=== PATIENT | male | born 1980 | race Caucasian/White ===

== ENCOUNTER 2019-07-09 21:49 | Emergency (ER) | payer MEDICARE, MEDICAID, SELFPAY ==
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
[2019-07-09 21:56] VITALS: BP 116/84; PULSE 93; RESP 20; TEMP 36.4; O2SAT 94
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
[2019-07-09 23:01] LABS: Basophils Absolute Auto 0.1 K/mm3 (0.0-0.1); Basophils Percent Auto 0.6 % (0.2-1.2); Eosinophils Absolute Auto 0.1 K/mm3 (0-0.3); Eosinophils Percent Auto 0.7 % (0-4.4); Hematocrit 48.5 % (42.0-52.0); Hemoglobin 16.1 g/dL (14.0-18.0); Immature Granulocyte Absolute 0.04 K/mm3 (0.00-0.031); Immature Granulocyte Percent A 0.4 % (0-0.5); Lymphocytes Absolute Auto 2.72 K/mm3 (0.9-3.2); Lymphocytes Percent Auto 25.8 % (18.3-44.2); Mean Corpuscular HGB Conc 33.2 g/dl (32-36); Mean Corpuscular Hemoglobin 31.4 pg (26-34); Mean Corpuscular Volume 94.7 fl (80-100); Mean Platelet Volume 10.1 fl (7.4-10.4); Monocytes Absolute Auto 0.6 K/mm3 (0.1-0.6); Monocytes Percent Auto 5.3 % (2.6-8.5); Neutrophils Absolute Auto 7.1 K/mm3 (1.3-6.7); Neutrophils Percent Auto 67.2 % (45.5-73.1); Platelet Count Result 294 k/mm3 (150-375); Red Blood Count 5.12 M/mm3 (4.6-6.20); Red Cell Distribution Width 14.4 % (11.5-14.5); White Blood Count 10.6 K/mm3 (4.5-10.0)
[2019-07-09 23:12] LABS: Blood Urea Nitrogen 9 mg/dL (9-20); Calcium 9.8 mg/dL (8.4-10.2); Carbon Dioxide 18 mmol/L (22-30); Chloride 110 mmol/L (98-107); Estimated CRCL calculation 124 ml/min; Estimated Glomerular Filt Rate > 60; Ethanol 187 mg/dL (<10); Glucose 87 mg/dL (75-110); Potassium 4.2 mmol/L (3.4-5.0); Sodium 147 mmol/L (137-145)
[2019-07-09] MEDS: levETIRAcetam 500 MG TABLET 1000 MG PO (23:32)
[2019-07-09] MEDS: TETANUS,DIPHTHERIA,AC PERTUSSIS ADULT 0.5 ML (ADACEL) IM (23:33)
--- NOTE | 2019-07-09 23:36 | PC.NURSE ---
SPOKE WITH PATIENT REGARDING A PLACE FOR HIM TO STAY TONIGHT IN THE EVENT HE IS DISCHARGED. DR. LOERA REQUESTING THIS DUE TO PATIENTS SAFETY AT HOME. I SPOKE WITH THE PT WITH JOSE FARAH. THE PATIENT STATES HE DOES NOT HAVE A FRIEND OR FAMILY MEMBER HE CAN STAY WITH. HE IS REQUESTING TO CALL HIS MOTHER.
--- NOTE | 2019-07-09 23:46 | PC.NURSE ---
PT UP TO THE PHONE WITH ASSISTANCE.
[2019-07-10 00:01] VITALS: BP 119/65; PULSE 96; RESP 18; O2SAT 100
--- NOTE | 2019-07-10 01:20 | PC.NURSE ---
PT GAVE VERBAL PERMISSION FOR THIS RN TO CALL HIS MOTHER FOR A RIDE. I CALLED AND SPOKE WITH LEAH, PT MOTHER, SHE WILL PICK THE PATIENT UP.
[2019-07-10 01:55] VITALS: BP 135/67; PULSE 85; RESP 14; TEMP 36.4; O2SAT 96
== END 2019-07-10 01:57 | disposition home or self-care (01) ==
PROVIDERS: Emergency Provider Emergency Medicine
DX: S50.811A Abrasion of right forearm, initial encounter (principal); F10.129 Alcohol abuse with intoxication, unspecified; Y90.6 Blood alcohol level of 120-199 mg/100 ml; Z87.820 Personal history of traumatic brain injury; Y04.2XXA Assault by strike against or bumped into by another person, initial encounter; Z23 Encounter for immunization
CPT/HCPCS: 36415; 70450; 71046; 80048; 80307; 85025; 90471; 90715; 99284; A9270

== ENCOUNTER 2020-03-13 13:30 | Outpatient (RCR) | payer MEDICARE, MEDICAID, SELFPAY ==
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
--- NOTE | 2020-01-15 16:09 | PCPTNOTE ---
Patient did not show up for scheduled appointment this date.
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
--- NOTE | 2020-02-29 14:33 | PCPTNOTE ---
Patient called & cancelled scheduled appointment this date due to not being able to make his appointment.
--- NOTE | 2020-02-29 14:54 | PCPTNOTE ---
Called pt and left message reminding him of his Mar 04 appt.
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
--- NOTE | 2020-04-03 08:30 | PCPTNOTE ---
Admitting Provider: Attending Provider: PHYSICIAN NOT ON STAFF Patient:Barrera Ely Date of :1980 Discharge Note Patient has not returned for any further treatments since his last re-assessment on 03/13/2020, therefore he will be discharged at this time. Patient?s initial visit was on 01/11/2020 12:30 and he had a total of 14 visits. The goals have been met at this time. Thank you for referring this patient to [facility]. Please review, sign, date and return this discharge summary RAUL. I have been updated about the patient's current status and I agree with discharge from the above service at this time. Referring Physician Date
== END 2020-04-03 10:34 | disposition home or self-care (01) ==
LOC: ANHPT 13:30
DX: M54.9 Dorsalgia, unspecified (principal)
CPT/HCPCS: 97110; 97116; 97140; 97163; 97530

== ENCOUNTER 2020-08-24 04:29 | Inpatient (IN) | payer MEDICARE, MEDICAID, SELFPAY ==
[2020-08-24] VITALS (27 sets, daily range): BP systolic 81–171; BP diastolic 47–151; PULSE 38–110; RESP 12–24; TEMP 35.9–36.3; O2SAT 95–100; BMI 24.6
--- NOTE | ~2020-08-24 | CT_ITS ---
EXAMINATION: CT brain wo [facility] EXAM DATE: 08/24/2020 13:36 INDICATION: Confusion, history traumatic brain injury. TECHNIQUE: Spiral CT of the head was performed without contrast. Axial, coronal and sagittal images were reviewed. The dose-length product (DLP) for this examination was 605.33 mGy-cm. The exposure w as tailored according to patient size, and iterative reconstruction (ASIR) was used as additional dos e reduction technique. Comparison is made to prior examination from 07/09/2019. FINDINGS: Large left-sided craniotomy defect. Underlying regions of left hemispheric encephalomalacia again noted. There is no acute intraparenchymal hemorrhage. No evidence of intraparenchymal brain m ass lesion. No evidence of acute infarction. There is no mass effect or midline shift. No hydroceph alus. There is some ex vacuo dilation of the left lateral ventricle. There are no extra-axial collect ions. There are no acute calvarial fractures. The orbits are unremarkable. Soft tissue is unremarka ble. The visualized sinuses and mastoid air cells are well aerated. IMPRESSION: 1. No acute intracranial findings. 2. Left craniotomy, underlying regions of encephalomalacia. Reviewed, dictated and finalized at location A.
--- NOTE | ~2020-08-24 | XR_ITS ---
EXAMINATION: XR chest 1V EXAM DATE: 08/24/2020 13:41 INDICATION: Altered mental status. Confusion. TECHNIQUE: Portable AP frontal chest x-ray was obtained. Comparison is made to prior examination from 07/09/2019. FINDINGS: The lungs are clear. There are no pleural effusions. Cardiac silhouette is prominent but magnified on this AP technique. There is no pneumothorax suspected. Old right-sided rib fractures. IMPRESSION: No acute cardiopulmonary findings. Reviewed, dictated and finalized at location A.
[2020-08-24] MEDS: LORazepam INJ (*CRX) 2 MG/ML VIAL IM ×2 (04:37→05:17)
[2020-08-24] MEDS: OLANZapine 10 MG INJ VIAL (04:44)
--- NOTE | 2020-08-24 04:46 | ECG_ITS ---
Measurements Intervals [place] Rate: 74 P: 82 CA: 142 QRS: 79 QRSD: 98 T: 93 QT: 414 QTc: 461 Interpretive Statements SINUS RHYTHM WITH SINUS ARRHYTHMIA ST ELEVATION IN ANTEROLATERAL LEADS- PROBABLY EARLY REPOLARIZATION BASELINE ARTIFACT- I, II, AVR, AVL, AVF BORDERLINE ECG Electronically Signed On 08-24-2020 7:55:46 CDT by Jesus Nagy D.O.
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
[2020-08-24 07:14] LABS: Basophils Percent Auto 0.5 % (0.2-1.2); Eosinophils Absolute Auto 0.1 K/mm3 (0-0.3); Eosinophils Percent Auto 0.8 % (0-4.4); Hematocrit 41.4 % (42.0-52.0); Immature Granulocyte Absolute 0.02 K/mm3 (0.00-0.031); Immature Granulocyte Percent A 0.2 % (0-0.5); Lymphocytes Absolute Auto 2.52 K/mm3 (0.9-3.2); Lymphocytes Percent Auto 30.2 % (18.3-44.2); Mean Corpuscular HGB Conc 33.8 g/dl (32-36); Mean Corpuscular Volume 94.5 fl (80-100); Mean Platelet Volume 10.9 fl (7.4-10.4); Monocytes Absolute Auto 0.5 K/mm3 (0.1-0.6); Monocytes Percent Auto 6.1 % (2.6-8.5); Neutrophils Absolute Auto 5.2 K/mm3 (1.3-6.7); Neutrophils Percent Auto 62.2 % (45.5-73.1); Platelet Count Result 216 k/mm3 (150-375); Red Blood Count 4.38 M/mm3 (4.6-6.20); Red Cell Distribution Width 13.2 % (11.5-14.5); White Blood Count 8.4 K/mm3 (4.5-10.0)
[2020-08-24 07:18] LABS: Add Urine Microscopic? YES; Appearance Urine Clear (Clear); Bilirubin Urine Negative (Negative); Blood Urine Negative (Negative); Color Urine Yellow (Yellow); Glucose Urine UA Negative (Negative); Ketones Urine Trace mg/dL (Negative); Leukocyte Esterase Ur Negative LEU/UL (Negative); Nitrate Urine Negative (Negative); Protein Urine 1+ mg/dL (Negative); RBC Urine 0-2 /hpf (0-2); Specific Grav Ur 1.017 (1.001-1.035); Urobilinogen Urine Negative mg/dL (<2.0); WBC Urine 0-3 /hpf
[2020-08-24 07:25] LABS: INR 0.9; Prothrombin Time 13.2 Seconds (11.1-14.7)
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
[2020-08-24 07:29] LABS: Alanine Aminotransferase 17 U/L (4-50); Albumin Level 4.9 g/dL (3.5-5.1); Alkaline Phosphatase 49 U/L (38-126); Anion Gap 9 mmol/L (8-16); Aspartate Amino Transferase 25 U/L (17-59); Bilirubin,Total 0.4 mg/dL (0.2-1.3); Blood Urea Nitrogen 10 mg/dL (9-20); Calcium 9.2 mg/dL (8.4-10.2); Carbon Dioxide 25 mmol/L (22-30); Chloride 112 mmol/L (98-107); Estimated CRCL calculation 139 ml/min; Estimated Glomerular Filt Rate > 60; Ethanol < 10 mg/dL (<10); Glucose 97 mg/dL (75-110); Lactic Acid Reflex 2.6 mmol/L (0.7-2.1); Potassium 4.2 mmol/L (3.4-5.0); Sodium 146 mmol/L (137-145)
[2020-08-24 07:31] LABS: Creatine Kinase 203 U/L (55-170)
[2020-08-24 07:32] LABS: Amphetamine Screen Urine Negative (Negative); Barbiturate Screen Urine Negative (Negative); Benzodiazepines Screen Urine Negative (Negative); Cannabinoid Screen Urine Positive (Negative); Cocaine Screen Urine Negative (Negative); Magnesium 2.2 mg/dL (1.6-2.3); Methadone Screen Urine Negative (Negative); Opiate Screen Urine Negative (Negative); Phencyclidine Screen Urine Negative (Negative)
[2020-08-24 07:36] LABS: Partial Thromboplastin Time 23.9 SECONDS (22.3-36.8)
--- NOTE | 2020-08-24 08:22 | PC.NURSE ---
Restraint check done, Mother in room requesting warm blankets for patient. X-ray attempting to do chest x-ray, patient refusing chest x-ray, cursing at staff and mother.
[2020-08-24 08:24] LABS: Valproic Acid 41.1 ug/mL (50-120)
[2020-08-24] MEDS: levETIRAcetam 1000MG/NACL100ML 1,000 MG/100 ML BAG 400 MG IVPB ×2 (09:34→20:00)
--- NOTE | 2020-08-24 09:37 | PC.NURSE ---
Patient allowed this nurse to start IV, Sharyn RN to assist. Patient remains AOX2, mother at bedside, Carrie started. Per Dr Faith, we need to get patient to CT scan, patient refusing at this time. Mother attempting to talk to patient into getting scanned. Mother okay'd patient being given medications for outbursts.
[2020-08-24] MEDS: PHENobarbitaL sodium (*CRX) 130 MG/ML VIAL 260 MG IV PUSH (10:06)
[2020-08-24 10:07] LABS: Reflex Lactic Acid Yes or No Add Lactic
[2020-08-24] MEDS: SODIUM CHLORIDE 0.9% IV 50 ML 999 ML (10:07)
[2020-08-24 10:53] LABS: Lactic Acid 2.2 mmol/L (0.7-2.1)
[2020-08-24] MEDS: LACTATED RINGERS 1,000 ML 999 ML IV CONT (10:58)
[2020-08-24] MEDS: HALOPERIDOL LACTATE 5 MG/ML VIAL 10 MG IV PUSH (11:28)
--- NOTE | 2020-08-24 11:28 | PC.NURSE ---
Patient AOx1 at this time. Haldol given. Mother at bedside. Patient asking for pain medication for his back. MD notified.
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
[2020-08-24] MEDS: dexmedeTOMIDine 400 MCG/100 ML 400 MCG/100 ML BAG IV CONT (12:56)
--- NOTE | 2020-08-24 13:57 | WPDCNINT ---
Assessment and Plan Assessment and plan (1) Delirium due to general medical condition: Code(s): F05 - Delirium due to known physiological condition Status: Acute Assessment and Plan: It appears to be multifactorial without a single etiology to explain. 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 Patient has a baseline behavior of being aggressive, hallucinations, impulsive decreased cognition and memory. Above that patient smokes marijuana cigarettes and also takes alcohol regularly. Patient is also on multiple psychotropic drugs. ER physician suspected patient was in alcohol withdrawal although it seems less likely. UDS was positive for cannabinoids alcohol level was negative. Patient also received several sedative and anti psychotic medications in the ER. Patient may have had a seizure from alcohol intake and may have been postictal He is afebrile and his white cell count is normal. UA and chest x-ray is negative. Lactic acid very mildly elevated could be secondary to seizures and dehydration EKG showed normal sinus rhythm and normal QTC Patient is not on any SSRI On my request ED physician checked with [facility] where patient has psychiatry and neurological care but they do not have any bed available at this time Will admit the patient to ICU Continue restraints as needed for patients and staff safety Continue Precedex infusion Seizure precautions Continue Keppra and Depakote. His valproic acid level was low when checked in the ER Ativan p.r.n. IV fluids Thiamine and folic acid Will resume buspirone and mirtazapine once patient is able to take p.o. I had extensive discussion with patient's mother and explained her the complicated nature of patient's condition. I also explained to her that we will try to transfer him to [facility] once the bed is available for continue to care and as we do not have Psychiatrist and [facility] (2) Seizures: Code(s): R56.9 - Unspecified convulsions Status: Acute (3) TBI (traumatic brain injury): Code(s): S06.9X9A - Unspecified intracranial injury with loss of consciousness of unspecified duration, initial encounter Status: Acute (4) Alcohol withdrawal: Code(s): F10.239 - Alcohol dependence with withdrawal, unspecified Status: Acute (5) Drug abuse: Code(s): F19.10 - Other psychoactive substance abuse, uncomplicated Status: Acute (6) Encephalopathy: Code(s): G93.40 - Encephalopathy, unspecified Status: Acute (7) Neuropathy: Code(s): G62.9 - Polyneuropathy, unspecified Status: Acute Assessment and Plan: Hold Neurontin at this time as patient will be NPO Total Critical Care Time - 60 minutes Due to a high probability of clinically significant, life threatening deterioration, the patient required my highest level of preparedness to intervene emergently and I personally spent this critical care time directly and personally managing the patient. This critical care time included obtaining a history; examining the patient; pulse oximetry; ordering and review of studies; arranging urgent treatment with development of a management plan; evaluation of patient's response to treatment; frequent reassessment; and discussions with other providers. It was exclusive of separately billable procedures and treating other patients and teaching time. Please see Assessment and Plan section and the rest of the note for further information on patient assessment and treatment Delivery Associate Consult Note Consult date: 08/24/20 Time Seen: 13:00 HPI: Barrera Ely is a 39 year old male who was brought by EMS to hospital ER with chief complaint of agitation confusion. Patient is unable to provide any meaningful history and history was obtained from ER physician's sign-out, records ob
[2020-08-24] MEDS: SODIUM CHLORIDE 0.9% IV 1,000 ML 999 ML IV CONT (14:14)
--- NOTE | 2020-08-24 14:22 | PC.NURSE ---
MD aware of patients current vital signs. NS running wide open at this time. Patient sleeping.
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
--- NOTE | 2020-08-24 15:25 | ADMGEN ---
This patient, Barrera Ely, was admitted to Intensive Care Unit-3. Patient/family oriented to hospital policies and general routines including ID bracelet, bed and alarms, visiting hours, pain management, procedures, bathroom and other care routines, personal items, smoking policy, room service/diet, and visiting hours. Information on how to activate the Rapid Response Team has been discussed. Patient/Family are encouraged to report perceived risks to care and to ask questions if they do not understand what they are told or what they should do.
[2020-08-24] MEDS: ENOXAPARIN 40 MG/0.4 ML SYRINGE SUB-Q (15:31)
[2020-08-24] MEDS: LACTATED RINGERS 1,000 ML 125 ML IV CONT (16:28)
[2020-08-24] MEDS: LORazepam INJ (*CRX) 2 MG/ML VIAL IV PUSH ×4 (16:29→19:53)
[2020-08-24] MEDS: NICOTINE (*PBKC) 14 MG PATCH 1 PATCH TRANSDERM (16:29)
[2020-08-24] MEDS: THIAMINE HCL 200 MG/2 ML VIAL 100 MG IV PUSH (16:29)
[2020-08-24 16:36] LABS: Ammonia 22 umol/L (9-30)
[2020-08-24] MEDS: VALPROIC ACID INJ 500 MG in DEXTROSE 5% 100 ML 100 MG IVPB (17:29)
[2020-08-24] MEDS: dexmedeTOMIDine 400 MCG/100 ML 400 MCG/100 ML BAG 11.75 MCG IV CONT (22:28)
[2020-08-25] VITALS (17 sets, daily range): BP systolic 97–135; BP diastolic 47–93; PULSE 37–71; RESP 14–24; TEMP 35.9–36.6; O2SAT 90–99
[2020-08-25] MEDS: VALPROIC ACID INJ 500 MG in DEXTROSE 5% 100 ML 100 MG IVPB ×5 (00:05→23:46)
[2020-08-25] MEDS: LACTATED RINGERS 1,000 ML 125 ML IV CONT (02:19)
[2020-08-25 05:04] LABS: Basophils Absolute Auto 0.1 K/mm3 (0.0-0.1); Basophils Percent Auto 0.5 % (0.2-1.2); Eosinophils Absolute Auto 0.2 K/mm3 (0-0.3); Eosinophils Percent Auto 1.9 % (0-4.4); Hematocrit 39.1 % (42.0-52.0); Hemoglobin 13.1 g/dL (14.0-18.0); Immature Granulocyte Absolute 0.05 K/mm3 (0.00-0.031); Immature Granulocyte Percent A 0.5 % (0-0.5); Lymphocytes Percent Auto 32.3 % (18.3-44.2); Mean Corpuscular HGB Conc 33.5 g/dl (32-36); Mean Corpuscular Hemoglobin 31.9 pg (26-34); Mean Corpuscular Volume 95.1 fl (80-100); Mean Platelet Volume 10.8 fl (7.4-10.4); Monocytes Absolute Auto 0.7 K/mm3 (0.1-0.6); Monocytes Percent Auto 6.4 % (2.6-8.5); Neutrophils Absolute Auto 6.4 K/mm3 (1.3-6.7); Neutrophils Percent Auto 58.4 % (45.5-73.1); Platelet Count Result 190 k/mm3 (150-375); Red Blood Count 4.11 M/mm3 (4.6-6.20); Red Cell Distribution Width 12.8 % (11.5-14.5); White Blood Count 10.9 K/mm3 (4.5-10.0)
[2020-08-25 05:23] LABS: Alanine Aminotransferase 14 U/L (4-50); Alkaline Phosphatase 48 U/L (38-126); Anion Gap 6 mmol/L (8-16); Aspartate Amino Transferase 27 U/L (17-59); Bilirubin,Total 1.1 mg/dL (0.2-1.3); Blood Urea Nitrogen 8 mg/dL (9-20); Carbon Dioxide 23 mmol/L (22-30); Chloride 116 mmol/L (98-107); Estimated CRCL calculation 165 ml/min; Estimated Glomerular Filt Rate > 60; Glucose 100 mg/dL (75-110); Potassium 3.7 mmol/L (3.4-5.0); Sodium 145 mmol/L (137-145)
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
[2020-08-25] MEDS: levETIRAcetam 1000MG/NACL100ML 1,000 MG/100 ML BAG 200 MG IVPB ×2 (09:11→20:33)
[2020-08-25] MEDS: ENOXAPARIN 40 MG/0.4 ML SYRINGE SUB-Q (09:11)
[2020-08-25] MEDS: KCL 20 MEQ/0.45% NS 1,000 ML 75 ML IV CONT (09:16)
[2020-08-25] MEDS: dexmedeTOMIDine 400 MCG/100 ML 400 MCG/100 ML BAG 7.05 MCG IV CONT (09:36)
[2020-08-25] MEDS: NICOTINE (*PBKC) 14 MG PATCH 1 PATCH TRANSDERM (11:31)
[2020-08-25] MEDS: THIAMINE HCL 200 MG/2 ML VIAL 100 MG IV PUSH (11:32)
[2020-08-25] MEDS: LORazepam INJ (*CRX) 2 MG/ML VIAL IV PUSH ×3 (13:46→19:33)
[2020-08-25] MEDS: FOLIC ACID 1 MG/0.2 ML INJ IV PUSH (13:47)
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
[2020-08-25] MEDS: dexmedeTOMIDine 400 MCG/100 ML 400 MCG/100 ML BAG 14.1 MCG IV CONT (19:45)
[2020-08-26] VITALS (23 sets, daily range): BP systolic 117–138; BP diastolic 71–99; PULSE 38–102; RESP 16–31; TEMP 36.1–36.7; O2SAT 96–100
[2020-08-26] MEDS: KCL 20 MEQ/0.45% NS 1,000 ML 75 ML IV CONT ×2 (03:00→17:14)
[2020-08-26 05:02] LABS: Hemoglobin 13.1 g/dL (14.0-18.0); Mean Corpuscular HGB Conc 34.5 g/dl (32-36); Mean Corpuscular Volume 92.9 fl (80-100); Mean Platelet Volume 11.1 fl (7.4-10.4); Platelet Count Result 175 k/mm3 (150-375); Red Blood Count 4.09 M/mm3 (4.6-6.20); Red Cell Distribution Width 12.4 % (11.5-14.5); White Blood Count 9.7 K/mm3 (4.5-10.0)
[2020-08-26] MEDS: VALPROIC ACID INJ 500 MG in DEXTROSE 5% 100 ML 100 MG IVPB ×4 (05:04→23:03)
[2020-08-26 05:18] LABS: Alanine Aminotransferase 12 U/L (4-50); Albumin Level 3.9 g/dL (3.5-5.1); Alkaline Phosphatase 48 U/L (38-126); Anion Gap 5 mmol/L (8-16); Aspartate Amino Transferase 24 U/L (17-59); Blood Urea Nitrogen 6 mg/dL (9-20); Calcium 8.7 mg/dL (8.4-10.2); Carbon Dioxide 27 mmol/L (22-30); Chloride 112 mmol/L (98-107); Estimated CRCL calculation 121 ml/min; Estimated Glomerular Filt Rate > 60; Glucose 101 mg/dL (75-110); Potassium 3.6 mmol/L (3.4-5.0); Sodium 144 mmol/L (137-145)
[2020-08-26] MEDS: dexmedeTOMIDine 400 MCG/100 ML 400 MCG/100 ML BAG IV CONT (07:30)
--- NOTE | 2020-08-26 07:36 | WPDINTPN ---
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 Patient has a baseline behavior of being aggressive, hallucinations, impulsive decreased cognition and memory. Above that patient smokes marijuana cigarettes and also takes alcohol regularly. Patient is also on multiple psychotropic drugs. Alcohol withdrawal is also a possibility. UDS was positive for cannabinoids, alcohol level was negative. Patient also received several sedative and anti psychotic medications in the ER. Patient may have had a seizure from alcohol intake and may have been postictal He is afebrile and his white cell count is normal. UA and chest x-ray is negative. Lactic acid very mildly elevated could be secondary to seizures and dehydration EKG showed normal sinus rhythm and normal QTC Patient is not on any SSRI Patient is not requiring physical restraints at this time which is a good sign Continue to wean down Precedex infusion today Will continue to try to minimize Ativan use Seizure precautions Continue Keppra and Depakote. IV fluids Thiamine and folic acid Will resume buspirone, gabapentin and mirtazapine once patient is able to take p.o. Sitter at bedside (2) Seizures: Code(s): R56.9 - Unspecified convulsions Status: Acute Assessment and Plan: Continue Keppra and Depakote, seizure precautions (3) TBI (traumatic brain injury): Code(s): S06.9X9A - Unspecified intracranial injury with loss of consciousness of unspecified duration, initial encounter Status: Acute Assessment and Plan: History of traumatic brain injury leading to chronic brain damage and encephalomalacia with cognitive behavior issues (4) Alcohol withdrawal: Qualifiers: Complication of substance-induced condition: with delirium Qualified Code(s): F10.231 - Alcohol dependence with withdrawal delirium Code(s): F10.239 - Alcohol dependence with withdrawal, unspecified Status: Acute Assessment and Plan: Continue thiamine and folic acid -currently on Precedex infusion which is being weaned (5) Drug abuse: Code(s): F19.10 - Other psychoactive substance abuse, uncomplicated Status: Acute Assessment and Plan: UDS positive for cannabinoids -will awake overnight counselor patient once more awake (6) Encephalopathy: Code(s): G93.40 - Encephalopathy, unspecified Status: Acute Assessment and Plan: Multifactorial as noted above (7) Neuropathy: Code(s): G62.9 - Polyneuropathy, unspecified Status: Acute Assessment and Plan: Will start gabapentin if he is able to take p.o. Additional Plan Discussed with mother and updated her with patient's condition and plan of care. I answered all questions Code status: Full code Critical care time spent: 33 minutes This dictation may have been done utilizing a voice recognition system. Attempts have been made to correct errors. However, there may be uncorrected grammatical, spelling, and recognition errors present. Due to a high probability of clinically significant, life threatening deterioration, the patient required my highest level of preparedness to intervene emergently and I personally spent this critical care time directly and personally managing the patient. This critical care time included obtaining a history; examining the patient; pulse oximetry; ordering and review of studies; arranging urgent treatment with development of a management plan; evaluation of patient's response to treatment; frequent reassessment; and discussions with other providers. It was exclusive of separately billable procedures and treating other
[2020-08-26] MEDS: levETIRAcetam 1000MG/NACL100ML 1,000 MG/100 ML BAG 200 MG IVPB ×2 (08:58→20:12)
[2020-08-26] MEDS: NICOTINE (*PBKC) 14 MG PATCH 1 PATCH TRANSDERM (09:02)
[2020-08-26] MEDS: ENOXAPARIN 40 MG/0.4 ML SYRINGE SUB-Q (09:02)
[2020-08-26] MEDS: THIAMINE HCL 200 MG/2 ML VIAL 100 MG IV PUSH (09:02)
[2020-08-26] MEDS: GABAPENTIN 300 MG CAPSULE 600 MG PO (09:18)
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
[2020-08-26] MEDS: busPIRone HCL 10 MG TABLET PO ×2 (10:51→16:30)
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
--- NOTE | 2020-08-26 10:55 | PC.NURSE ---
Mother to bedside with Dr. Jacob.
--- NOTE | 2020-08-26 11:00 | PC.NURSE ---
Dr. Zelaya at bedside.
[2020-08-26] MEDS: HYDROcodone/acetaminophen (*CRX) 5-325 MG TABLET 1 TAB PO ×3 (13:47→22:53)
[2020-08-26] MEDS: FOLIC ACID 1 MG/0.2 ML INJ IV PUSH (13:51)
[2020-08-26] MEDS: MIRTAZAPINE 15 MG TABLET 45 MG PO (20:12)
--- NOTE | 2020-08-26 20:30 | PC.NURSE ---
Patient denies pain, however states he takes more pain medication at home then what is being allowed here and that he will never come back here again.VS stable at 83HR, 20RR, 95%, 129/74. States he should be able to have more pain medication even tho patient denies pain. Continue to monitor at this time.
[2020-08-27] VITALS (7 sets, daily range): BP systolic 110–140; BP diastolic 79–89; PULSE 61–105; RESP 13–24; TEMP 36.6–36.8; O2SAT 96–98
[2020-08-27] MEDS: HYDROcodone/acetaminophen (*CRX) 5-325 MG TABLET 1 TAB PO ×2 (02:27→06:13)
[2020-08-27 04:54] LABS: Hematocrit 40.3 % (42.0-52.0); Hemoglobin 14.1 g/dL (14.0-18.0); Mean Corpuscular Hemoglobin 32.3 pg (26-34); Mean Corpuscular Volume 92.2 fl (80-100); Mean Platelet Volume 10.7 fl (7.4-10.4); Platelet Count Result 208 k/mm3 (150-375); Red Blood Count 4.37 M/mm3 (4.6-6.20); Red Cell Distribution Width 12.4 % (11.5-14.5); White Blood Count 9.8 K/mm3 (4.5-10.0)
[2020-08-27 05:11] LABS: Alanine Aminotransferase 14 U/L (4-50); Albumin Level 4.3 g/dL (3.5-5.1); Alkaline Phosphatase 58 U/L (38-126); Anion Gap 8 mmol/L (8-16); Aspartate Amino Transferase 27 U/L (17-59); Bilirubin,Total 0.8 mg/dL (0.2-1.3); Blood Urea Nitrogen 5 mg/dL (9-20); Calcium 8.7 mg/dL (8.4-10.2); Carbon Dioxide 24 mmol/L (22-30); Chloride 108 mmol/L (98-107); Estimated CRCL calculation 157 ml/min; Estimated Glomerular Filt Rate > 60; Glucose 88 mg/dL (75-110); Magnesium 1.8 mg/dL (1.6-2.3); Potassium 3.4 mmol/L (3.4-5.0); Sodium 140 mmol/L (137-145)
[2020-08-27] MEDS: VALPROIC ACID INJ 500 MG in DEXTROSE 5% 100 ML 100 MG IVPB (06:13)
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
[2020-08-27] MEDS: busPIRone HCL 10 MG TABLET PO (08:43)
[2020-08-27] MEDS: GABAPENTIN 300 MG CAPSULE 600 MG PO (08:44)
[2020-08-27] MEDS: ENOXAPARIN 40 MG/0.4 ML SYRINGE SUB-Q (08:44)
[2020-08-27] MEDS: MAGNESIUM SULF 2 GM/WATER 50ML 2 GM/50 ML BAG IVPB (08:44)
[2020-08-27] MEDS: POTASSIUM CHLORIDE 20 MEQ TABLET 40 MEQ PO (08:44)
[2020-08-27] MEDS: levETIRAcetam 1000MG/NACL100ML 1,000 MG/100 ML BAG 200 MG IVPB (08:45)
[2020-08-27] MEDS: NICOTINE (*PBKC) 14 MG PATCH 1 PATCH TRANSDERM (08:46)
[2020-08-27] MEDS: THIAMINE HCL 200 MG/2 ML VIAL 100 MG IV PUSH (08:46)
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
--- NOTE | 2020-08-27 11:31 | WPDNEUROPN ---
Progress Note: A&P Assessment and Plan (1) Seizures: Code(s): R56.9 - Unspecified convulsions Status: Acute Additional Plan improving mental status, treatment will be continued as such Review of Systems Review of Systems: All systems reviewed & are unremarkable except as noted in HPI and below Exam Const: General: cooperative, comfortable and no acute distress Nutritional Appearance: average body habitus Orientation/consciousness: oriented to person, oriented to place and oriented to time Limitations: no limitations HENMT: Head: normocephalic Ears: hearing grossly normal bilaterally General nose exam: Normal external nose present Face and sinus: normal facial exam Mouth: Yes Normal oral and palatal mucosa present Eyes: General: appearance normal, both eyes and all related structures Neck: Neck: full ROM Resp: Effort & Inspection: normal respiratory effort Auscultation: clear to auscultation bilaterally Cardio: Rate: regular rate Rhythm: regular rhythm Neuro: General: oriented to person and oriented to place Cranial nerves: Yes CN's II-XII intact bilaterally Cognition (Neuro): normal cognition Speech: normal speech Gait exam (Neuro): Wide-based gait present Sensory Exam: normal sensation Deep tendon reflexes (DTR's): Right triceps reflex intensity grade: 1+, Left triceps reflex intensity grade: 2+, Rt Biceps (C5, C6): 1+, Left biceps reflex intensity grade: 2+, Right brachioradialis reflex intensity grade: 1+, Left brachioradialis reflex intensity grade: 2+, Right patellar reflex intensity grade: 1+, Left patellar reflex intensity grade: 2+, Right ankle reflex intensity grade: 1+ and Left ankle reflex intensity grade: 2+ Plantar Reflex Responses: equivocal: bilateral Objective Data Vital Signs Vital Signs: Vital Signs - 24 hr 08/26/20 12:00 08/26/20 14:00 08/26/20 16:00 Temperature 36.3 C L 36.7 C Pulse Rate 67 72 86 Respiratory Rate 24 H 20 19 Blood Pressure 126/87 136/79 131/81 Pulse Oximetry 98 99 97 08/26/20 18:00 08/26/20 20:00 08/26/20 20:24 Temperature 36.2 C L Pulse Rate 102 H 78 81 Respiratory Rate 19 19 19 Blood Pressure 138/99 H 129/74 Pulse Oximetry 99 97 97 08/26/20 22:00 08/26/20 23:32 08/26/20 23:43 Temperature Pulse Rate 85 74 Respiratory Rate 23 H 21 H Blood Pressure 131/85 Pulse Oximetry 98 96 98 08/27/20 00:00 08/27/20 02:00 08/27/20 03:43 Temperature 36.6 C Pulse Rate 79 68 65 Respiratory Rate 21 H 23 H 20 Blood Pressure 140/89 140/89 Pulse Oximetry 98 98 96 08/27/20 04:00 08/27/20 06:00 08/27/20 08:00 Temperature 36.8 C 36.8 C Pulse Rate 65 61 63 Respiratory Rate 18 24 H 13 Blood Pressure 110/79 110/79 Pulse Oximetry 98 98 08/27/20 10:00 Temperature Pulse Rate 105 H Respiratory Rate Blood Pressure Pulse Oximetry Intake/Output Intake/Output: Intake & Output 08/24/20 08/25/20 08/26/20 08/27/20 23:59 23:59 23:59 23:59 Intake Total 1997.94 2755 2870 930 Output Total 2400 1225 2400 Balance 867 7654 -4139 Meds/Results Medications: Active Medications Generic Name Dose Route Start Last Admin Trade Name Freq PRN Reason Stop Dose Admin Hydrocodone Bitart/Acetaminophen 1 tab 08/26/20 18:09 08/27/20 06:13 Hydrocodone/Acetaminophen (*Crx) 5-325 Mg Tablet PO 1 tab Q4H PRN Administration Pain Rated 6 or Greater Buspirone HCl 10 mg 08/26/20 09:00 08/27/20 08:43 Buspirone Hcl 10 Mg Tablet PO 10 mg BID CLARA Administration Enoxaparin Sodium 40 mg 08/25/20 09:00 08/27/20 08:44 Enoxaparin 40 Mg/0.4 Ml Syringe SUB-Q 40 mg DAILY CLARA Administration Folic Acid 1 mg 08/25/20 14:00 08/26/20 13:51 Folic Acid 1 Mg/0.2 Ml Inj IV PUSH 1 mg Q24H CLARA Administration Gabapentin 600 mg 08/26/20 09:00 08/27/20 08:44 Gabapentin 300 Mg Capsule PO 600 mg DAILY CLARA Administration Levetiracetam 1,000 mg in 100 mls @ 400 mls/hr 08/24/20 21:00 08/27/20 09:15 Janet
--- NOTE | 2020-09-02 08:20 | PC.NURSE ---
Blood cx are negative. Dr. Nicole emerson.
--- NOTE | 2020-09-02 08:38 | PC.NURSE ---
Blod cx are negative. Dr. Nicole emerson.
== END 2020-08-27 12:28 | disposition home or self-care (01) | DRG 897 ==
LOC: ANHED 13:59 → ANHICU 17:13
PROVIDERS: Emergency Medicine; Internal Medicine; Admitting Provider Internal Medicine; Emergency Provider Emergency Medicine; PCP Internal Medicine; Visit Provider Internal Medicine
DX: F10.231 Alcohol dependence with withdrawal delirium (principal); F05 Delirium due to known physiological condition; G93.89 Other specified disorders of brain; G40.909 Epilepsy, unspecified, not intractable, without status epilepticus; F17.210 Nicotine dependence, cigarettes, uncomplicated; F19.10 Other psychoactive substance abuse, uncomplicated; G62.9 Polyneuropathy, unspecified; Z79.899 Other long term (current) drug therapy; Z87.820 Personal history of traumatic brain injury; Z91.14 Patient's other noncompliance with medication regimen
CPT/HCPCS: 36415; 70450; 71045; 80053; 80164; 80307; 81001; 82140; 82550; 83605; 83735; 85025; 85027; 85610; 85730; 87040; 87086; 93005; 96361; 96365; 96372; 96375; 99285; A9270; J1630; J1650; J1953; J2060; J2560; J3411; J3475; J7030; J7120

== ENCOUNTER 2020-08-28 13:36 | Outpatient (CLI) | payer MEDICARE, MEDICAID, SELFPAY | END 2020-08-28 13:37 | disposition home or self-care (01) | LOC: ANHCOVIDVC 13:36 | PROVIDERS: PCP Internal Medicine | DX: Z23 Encounter for immunization (principal) | CPT/HCPCS: 0001A; 91300 ==

== ENCOUNTER 2020-09-18 13:27 | Outpatient (CLI) | payer MEDICARE, MEDICAID, SELFPAY | END 2020-09-18 13:28 | disposition home or self-care (01) | LOC: ANHCOVIDVC 13:27 | PROVIDERS: PCP Internal Medicine | DX: Z23 Encounter for immunization (principal) | CPT/HCPCS: 0002A; 91300 ==

== ENCOUNTER 2021-01-29 13:06 | Outpatient (CLI) | payer MEDICARE, MEDICAID, SELFPAY ==
--- NOTE | ~2021-01-29 | XR_ITS ---
EXAMINATION: XR barium swallow modified DATE: 01/29/2021 13:55 INDICATION: Dysphagia TECHNIQUE: Modified barium esophagram was performed by myself to administered fluoroscopy, in conjun ction with speech pathologist who administered barium in varying consistencies as per speech patholog ist documentation. This was recorded on tape. A single fluoroscopic spot image was recorded. The DAP for this procedure was 1.243 Gycm2. Fluoroscopy exposure time was 1.9 minutes. FINDINGS: Oral stage: Adequate function. Pharyngeal phase: Adequate function. Laryngeal penetration: None. Aspiration: None. Laryngeal sensitivity: Present. IMPRESSION: Unremarkable modified barium swallow. Please refer to speech pathologist findings and spe [facility] feeding recommendations. Reviewed, dictated and finalized at location A. IMPRESSION: Unremarkable modified barium swallow. Please refer to speech pathol ogist findings and specific feeding recommendations.
--- NOTE | 2021-01-29 17:40 | STOPEVAL ---
MODIFIED BARIUM SWALLOW EVALUATION: Thank you for referring Barrera Ely to [facility].? Attending Provider: Deandre Melchor MD Outpatient Past Medical History Past Medical History Source of Past Medical History Recalled from Previous Visit, Confirmed with Patient/Family Neurological History Hx Epilepsy Yes Hx Other Neurological Disorders Yes: postconcussion syndrome, TBI Cardiovascular History Hx Cardiac Disorders No Significant History Respiratory History Hx Respiratory Disorders No Significant History Gastrointestinal History Hx Gastrointestinal Disorders No Significant History Genitourinary History Hx Genitourinary Disorders No Significant History Musculoskeletal History Hx Back Injury Yes Hx Back Pain Yes: DDD-lumbar, sacroiliitis Hx Fractures Yes: right scap fracture Hematological History Hx Hematological Disorders No Significant History Endocrine History Hx Endocrine Disorders No Significant History HEENT History Hx HEENT Disorders No Significant History Integumentary History Hx Skin Disorders No Significant History Reproductive History Hx Reproductive Disorders No Significant History Psychosocial History Hx Other Psychiatric Disorders Yes: alcohol abuse, Pain History Has Past Pain Affected Your Daily Life Yes History of Long-Term Prescription Pain Yes Medication Use (Opiates) Evaluation Information Problem Diagnosis dysphagia Onset last several months Subjective Information Pt and his mother provided Query Text:As Reported By Patient/ information; it is reported Family that pt has difficulty with pills as well as solid foods getting stuck Modified Barium Swallow Evaluation Recent Swallowing History Reports Dysphagia Yes History of Dysphagia No Other Related History TBI in 2017 Other Factors Impacting Dysphagia Neurological Impairment History of Pneumonia No Reported Difficult Consistencies Pills,Solids Intake Method Prior to Swallow Oral Evaluation Diet Prior to Swallow Evaluation Regular, Level 7 Liquid Consistency Prior to Swallow Thin (0) Evaluation Consistency Barium Pill Other Amount a half and a whole pill were tested; given with water Oral Preparatory Symptoms None Oral Phase Symptoms None Pharyngeal Phase Symptoms None Severity of Vallecular Residue None - 0% No Residue Severity of Pyriform Sinus Residue None - 0% No Residue 8 Point Laryngeal Penetration-Aspiration Material Does Not Enter Airway Scale Thin Uncontrolled 2 Method of Presentation Straw Oral Preparatory
== END 2021-01-29 13:07 | disposition home or self-care (01) ==
PROVIDERS: PCP Internal Medicine; Visit Provider Internal Medicine
DX: R13.10 Dysphagia, unspecified (principal); R09.89 Other specified symptoms and signs involving the circulatory and respiratory systems
CPT/HCPCS: 92611

== ENCOUNTER 2022-05-23 09:13 | Observation (INO) | payer MEDICARE, MEDICAID, SELFPAY ==
[2022-05-23] VITALS (7 sets, daily range): BP systolic 115–140; BP diastolic 70–94; PULSE 71–92; RESP 14–20; TEMP 36–36.6; O2SAT 95–99; BMI 30.9
--- NOTE | ~2022-05-23 | CT_ITS ---
EXAMINATION: CT cervical spine wo con DATE: 05/23/2022 10:45 INDICATION: Neck pain after fall TECHNIQUE: Computed tomography (CT) of the cervical spine was performed without intravenous contrast. The dose-length product was 482 mGy-cm. Automated exposure control and iterative reconstruction tech [employer] were employed. COMPARISON: CT dated 12/04/2018 FINDINGS: There is mild disc narrowing and endplate hypertrophy at C4-5 and C5-6. Odontoid process is normal. Craniovertebral junction is normal. No evidence for perched facet. Spinous processes are nor mal. Vertebral body heights are maintained. Odontoid process is normal. No significant paraspinal sof t tissue abnormality. There is mild emphysema in the lung apices. IMPRESSION: 1. No acute fracture. Reviewed, dictated and finalized at location A. ANIZED FIBER UNIT OPERATOR IMPRESSION: 1. No acute fracture.
--- NOTE | ~2022-05-23 | XR_ITS ---
EXAMINATION: XR chest 1V 05/23/2022 10:47 INDICATION: Altered mental status. PROCEDURE: AP portable chest COMPARISON: 08/24/2020 FINDINGS: The lungs are clear. The cardiomediastinal silhouette is within normal limits. There are no pleural effusions. There is no pneumothorax suspected. There are multiple healed right rib fract ures. There is a battery pack overlying the left mid thorax. IMPRESSION: 1: NO ACUTE CARDIOPULMONARY DISEASE. Reviewed, dictated and finalized at location A. RACTIVE MEDIA SPECIALIST
--- NOTE | ~2022-05-23 | CT_ITS ---
EXAMINATION: CT brain wo con DATE: 05/23/2022 10:45 INDICATION: Altered mental status. Seizures. TECHNIQUE: Computed tomography (CT) of the head was performed without intravenous contrast. The dose- length product was 681.00 mGy-cm. Automated exposure control and iterative reconstruction technique w ere employed. COMPARISON: 08/24/2020 FINDINGS: There is a left-sided craniotomy defect. There is encephalomalacia involving the left front al and parietal lobes, unchanged. No ventriculomegaly or midline shift. Basilar cisterns are patent. No acute infarction, hemorrhage, mass or mass effect. Paranasal sinuses and mastoids are pneumatized. No acute depressed skull fracture. IMPRESSION: 1. No acute intracranial abnormality. No significant interval change. Reviewed, dictated and finalized at location A. IALTY THERAPIST
--- NOTE | 2022-05-23 09:31 | ECG_ITS ---
Measurements Intervals [place] Rate: 78 P: 68 [place]: 154 QRS: 60 QRSD: 92 T: 66 QT: 376 QTc: 430 Interpretive Statements SINUS RHYTHM POSSIBLE LEFT ATRIAL ENLARGEMENT INCOMPLETE RIGHT BUNDLE BRANCH BLOCK BASELINE ARTIFACT- I, II, III, AVR, AVL, AVF BORDERLINE ECG NO PREVIOUS ECG AVAILABLE FOR COMPARISON Electronically Signed On 05-23-2022 15:02:06 CAN DRYER by Jesus Nagy D.O.
[2022-05-23 09:47] LABS: Glucose Point of Care 110 mg/dl (65-105)
[2022-05-23] MEDS: SODIUM CHLORIDE 0.9% IV 1,000 ML 999 ML IV CONT ×2 (09:51→11:25)
[2022-05-23 09:57] LABS: Add Urine Microscopic? YES; Appearance Urine Clear (Clear); Basophils Percent Auto 0.3 % (0.2-1.2); Bilirubin Urine Negative (Negative); Blood Urine Negative (Negative); Color Urine Yellow (Yellow); Eosinophils Percent Auto 0.1 % (0-4.4); Glucose Urine UA Negative (Negative); Hematocrit 44.3 % (42.0-52.0); Hemoglobin 14.9 g/dL (14.0-18.0); Immature Granulocyte Absolute 0.05 K/mm3 (0.00-0.031); Immature Granulocyte Percent A 0.5 % (0-0.5); Ketones Urine 1+ mg/dL (Negative); Leukocyte Esterase Ur Negative LEU/UL (Negative); Lymphocytes Absolute Auto 1.95 K/mm3 (0.9-3.2); Lymphocytes Percent Auto 17.7 % (18.3-44.2); Mean Corpuscular HGB Conc 33.6 g/dl (32-36); Mean Corpuscular Hemoglobin 32.3 pg (26-34); Mean Corpuscular Volume 96.1 fl (80-100); Mean Platelet Volume 10.3 fl (7.4-10.4); Monocytes Absolute Auto 0.7 K/mm3 (0.1-0.6); Monocytes Percent Auto 5.9 % (2.6-8.5); Neutrophils Absolute Auto 8.3 K/mm3 (1.3-6.7); Neutrophils Percent Auto 75.5 % (45.5-73.1); Nitrate Urine Negative (Negative); Platelet Count Result 279 k/mm3 (150-375); Protein Urine Negative (Negative); Red Blood Count 4.61 M/mm3 (4.6-6.20); Red Cell Distribution Width 13.3 % (11.5-14.5); Specific Grav Ur 1.015 (1.001-1.035); Urobilinogen Urine 0.2 mg/dL (<2.0)
[2022-05-23] MEDS: LORazepam INJ (*CRX) 2 MG/ML VIAL (09:58)
--- NOTE | 2022-05-23 09:59 | PC.NURSE ---
nathalia from dr marquez to give iv push ativan 2mg stat
[2022-05-23 10:07] LABS: INR 1.1
[2022-05-23 10:08] LABS: Partial Thromboplastin Time 28.9 SECONDS (22.3-36.8)
[2022-05-23 10:09] LABS: Ammonia 55 umol/L (9-30); Ethanol < 10 mg/dL (<10)
[2022-05-23 10:10] LABS: Alanine Aminotransferase 21 U/L (6-50); Albumin Level 5.5 g/dL (3.5-5.1); Alkaline Phosphatase 69 U/L (38-126); Anion Gap 13 mmol/L (8-16); Aspartate Amino Transferase 27 U/L (17-59); Bilirubin,Total 0.5 mg/dL (0.2-1.3); Blood Urea Nitrogen 9 mg/dL (9-20); Carbon Dioxide 22 mmol/L (22-30); Chloride 108 mmol/L (98-107); Creatine Kinase 207 U/L (55-170); Estimated CRCL calculation 125 ml/min; Estimated Glomerular Filt Rate > 60; Glucose 106 mg/dL (65-110); Potassium 4.4 mmol/L (3.4-5.0); Sodium 143 mmol/L (137-145)
[2022-05-23 10:13] LABS: Amphetamine Screen Urine Negative (Negative); Barbiturate Screen Urine Negative (Negative); Benzodiazepines Screen Urine Negative (Negative); Cannabinoid Screen Urine Positive (Negative); Cocaine Screen Urine Negative (Negative); Methadone Screen Urine Negative (Negative); Mucus Urine Rare /lpf; Opiate Screen Urine Negative (Negative); Phencyclidine Screen Urine Negative (Negative); RBC Urine 0-2 /hpf (0-2); WBC Urine 0-3 /hpf
[2022-05-23 10:21] LABS: Lactic Acid Reflex 4.1 mmol/L (0.7-2.0)
--- NOTE | 2022-05-23 10:28 | ED.GENADULT ---
HPI - General Adult General Chief complaint: Seizure Stated complaint: seizure Time Seen by Provider: 05/23/22 09:17 Source: EMS and RN notes reviewed Mode of arrival: EMS Limitations: altered mental status History of Present Illness HPI narrative: This is a 41 year old male with history of alcohol abuse, traumatic brain injury, seizures who presents from home for evaluation of altered mental status. EMS states patient was found on the floor by his parents this morning. He was confused and combative. It is presumed that patient was drinking last night and he had seizure today. Patient is unable to give any history at this time. I spoke with patient's mother over the phone. She states that patient is normally able to carry a conversation. He has history of sneaking alcohol into the house and he also sometimes does not take his medication. His mother states they found an empty bottle of alcohol in his room today. He may have drank last night when they left house last night. HE was also on their return home at 10 pm last night. This morning they heard a noise and they found patient on the floor next to his bed. She states he was trying to get up but he could not. She states he has similar episode in 2020 in which he had same presentation. She thinks he had seizure and that he is postictal. She also states they found some of patient's pills in his room so he may not be taking his medications. Related Data Home Medications Medication Instructions Recorded Confirmed buspirone 30 mg tablet 30 mg PO BID 05/23/22 05/23/22 divalproex 250 mg tablet,delayed 1,000 mg PO BID 05/23/22 05/23/22 release gabapentin 600 mg tablet 600 mg PO BID 05/23/22 05/23/22 levetiracetam 500 mg tablet 1,000 mg PO BID 05/23/22 05/23/22 mirtazapine 45 mg tablet 45 mg PO HS 05/23/22 05/23/22 oxycodone 10 mg tablet,crush 10 mg PO BID 05/23/22 05/23/22 resistant,extended release 12 hr (OxyContin) oxycodone-acetaminophen 10 mg-325 1 tablet PO QID PRN Pain 05/23/22 05/23/22 mg tablet risperidone 0.5 mg tablet 0.5 mg PO BID 05/23/22 05/23/22 sertraline 100 mg tablet 100 mg PO BID 05/23/22 05/23/22 trazodone 100 mg tablet 100 mg PO HS 05/23/22 05/23/22 Allergies Allergy/AdvReac Type Severity Reaction Status Date / Time No Known Allergies Allergy Verified 05/23/22 09:51 Review of Systems Review of Systems: ROS unobtainable: Yes unobtainable due to medical condition and unobtainable due to mental status PMFSH Past Medical History Medical History (Updated 05/23/22 @ 17:34 by Zenobia Aldana NP) Depression with anxiety Seizure disorder Traumatic brain injury Surgical History Surgical History (Updated 05/23/22 @ 17:34 by Zenobia Aldana NP) Surgical history unknown Family History Family History (Updated 05/23/22 @ 17:35 by Zenobia Aldana NP) Unknown Family history unknown Social History Social History (Updated 05/23/22 @ 17:40 by Zenobia Aldana NP) Social History: The patient reportedly lives with family members. The patient uses E cigarettes. There are no emergency contact numbers listed in his chart. Marijuana was positive on his drug tox screen Code status full code Smoking status: Current every day smoker Tobacco type: e-cigarettes/vaping Second hand tobacco smoke exposure: Yes Alcohol intake: unknown Substance use: current Substance use type: marijuana Lack of Transportation: No Lack of Food: Never True Current Housing: I Have Housing Concerned About Future Housing: No Difficulty Paying Gas/Electric Bills: No Difficulty Paying for Meds: No Currently Unemployed: No Education: High School Diploma/GED Difficulty w/ Childcare or Family Care: No Spiritual care concerns: No Exam Const: General: ill appearing Other: patient is agitate. He is mumbling and telling us to let go of him HENMT: Head: normal to inspection Mouth: Yes Normal oral and palatal mucosa present a
[2022-05-23 10:36] LABS: Valproic Acid 98.3 ug/mL (50-120)
[2022-05-23 10:37] LABS: Influenza A QL RT-PCR Negative (Negative); Influenza B QL RT-PCR Negative (Negative); SARS-CoV-2 RNA PCR Negative
[2022-05-23] MEDS: SODIUM CHLORIDE 0.9% IV 1,000 ML 125 ML IV CONT (12:52)
[2022-05-23] MEDS: levETIRAcetam 1000MG/NACL100ML 1,000 MG/100 ML BAG 400 MG IVPB ×2 (12:52→21:09)
[2022-05-23 12:53] LABS: Reflex Lactic Acid Yes or No Add Lactic
[2022-05-23 13:36] LABS: Lactic Acid 1.5 mmol/L (0.7-2.0)
--- NOTE | 2022-05-23 14:31 | PM.IMHP ---
H&P: HPI History of Present Illness Date/Time: 05/23/22 14:31 Chief Complaint: Seizure Narrative: This is a 41-year-old male patient who reportedly lives with his family. Is reported that the patient is noncompliant with his medication for seizures at times. Family members saw him at 10:00 a.m. last night he was resistant quietly in his room. This morning the family members heard a thud and walked into the patient's room and saw him on the floor. The patient was having some repetitive speech and some confusion. Is suspected that the patient had a seizure. His white count 11.0. Lactic acid is 4.1 and came down to 1.5 with fluid resuscitation. Total creatinine kinase is 207 ammonia level is 55. Cervical spine CT was read as no acute fracture. Chest x-ray was read as no acute cardiopulmonary disease. Head CT was read as no acute intracranial abnormality. No significant interval change. Neurology has been consulted. The patient was given IV fluids, Ativan, Zofran and Keppra IV. The patient is verbally unresponsive at this time. However the patient with her 81 medicated with Ativan. The patient is being admitted to observation status on the date of service 05/23/2022. Review of Systems Review of Systems: See HPI [facility] Past Medical History Medical History (Updated 05/23/22 @ 18:06 by Zenobia Aldana NP) Alcoholism Depression with anxiety Seizure disorder Traumatic brain injury Surgical History Surgical History (Updated 05/23/22 @ 17:34 by Zenobia Aldana NP) Surgical history unknown Family History Family History (Updated 05/23/22 @ 17:35 by Zenobia Aldana NP) Unknown Family history unknown Social History Social History (Updated 05/23/22 @ 17:40 by Zenobia Aldana NP) Social History: The patient reportedly lives with family members. The patient uses E cigarettes. There are no emergency contact numbers listed in his chart. Marijuana was positive on his drug tox screen Code status full code Smoking status: Current every day smoker Tobacco type: e-cigarettes/vaping Second hand tobacco smoke exposure: Yes Alcohol intake: unknown Substance use: current Substance use type: marijuana Lack of Transportation: No Lack of Food: Never True Current Housing: I Have Housing Concerned About Future Housing: No Difficulty Paying Gas/Electric Bills: No Difficulty Paying for Meds: No Currently Unemployed: No Education: High School Diploma/GED Difficulty w/ Childcare or Family Care: No Spiritual care concerns: No Meds Home Medications and Allergies Home Medications Medication Instructions Recorded Confirmed Type buspirone 30 mg tablet 30 mg PO BID 05/23/22 05/23/22 History divalproex 250 mg tablet,delayed 1,000 mg PO BID 05/23/22 05/23/22 History release gabapentin 600 mg tablet 600 mg PO BID 05/23/22 05/23/22 History levetiracetam 500 mg tablet 1,000 mg PO BID 05/23/22 05/23/22 History mirtazapine 45 mg tablet 45 mg PO HS 05/23/22 05/23/22 History oxycodone 10 mg tablet,crush 10 mg PO BID 05/23/22 05/23/22 History resistant,extended release 12 hr (OxyContin) oxycodone-acetaminophen 10 mg-325 1 tablet PO QID PRN Pain 05/23/22 05/23/22 History mg tablet risperidone 0.5 mg tablet 0.5 mg PO BID 05/23/22 05/23/22 History sertraline 100 mg tablet 100 mg PO BID 05/23/22 05/23/22 History trazodone 100 mg tablet 100 mg PO HS 05/23/22 05/23/22 History Allergies Allergy/AdvReac Type Severity Reaction Status Date / Time No Known Allergies Allergy Verified 05/23/22 09:51 Vital Signs Vital Signs - 24 hr 05/23/22 09:10 05/23/22 11:00 05/23/22 12:36 Temperature 36.6 C Pulse Rate 89 75 92 Respiratory Rate 17 14 19 Blood Pressure 119/73 122/94 H Pulse Oximetry 98 95 99 Oxygen Delivery Room Air Exam Const: General: cooperative, comfortable, no acute distress, well developed, alert, tired appearing, average body habitus and well agueda
--- NOTE | 2022-05-23 15:37 | PC.NURSE ---
This patient, Barrera Ely, was admitted to Medical Room 347-. Patient/family oriented to hospital policies and general routines including ID bracelet, bed and alarms, visiting hours, pain management, procedures, bathroom and other care routines, personal items, smoking policy, room service/diet, and visiting hours. Information on how to activate the Rapid Response Team has been discussed. Patient/Family are encouraged to report perceived risks to care and to ask questions if they do not understand what they are told or what they should do.
[2022-05-23] MEDS: THIAMINE HCL INJ 100 MG, FOLIC ACID INJ 1 MG, MULTIVITAMINS-12 INJ VIAL 1 5 ML, MULTIVI... 125 MG IV CONT (18:45)
[2022-05-23 19:00] LABS: Glucose Point of Care 129 mg/dl (65-105)
[2022-05-23] MEDS: traZODone HCL 50 MG TABLET 100 MG PO (21:09)
[2022-05-23] MEDS: MIRTAZAPINE 15 MG TABLET 45 MG PO (21:09)
[2022-05-23 23:59] LABS: Glucose Point of Care 95 mg/dl (65-105)
[2022-05-24] VITALS: PULSE 59
[2022-05-24 03:47] VITALS: BP 105/65; PULSE 57; RESP 16; TEMP 36.5; O2SAT 97
[2022-05-24 04:00] VITALS: PULSE 54
[2022-05-24 05:19] LABS: Glucose Point of Care 104 mg/dl (65-105)
[2022-05-24 05:54] LABS: Basophils Percent Auto 0.4 % (0.2-1.2); Eosinophils Absolute Auto 0.1 K/mm3 (0-0.3); Eosinophils Percent Auto 1.6 % (0-4.4); Hematocrit 36.7 % (42.0-52.0); Hemoglobin 12.2 g/dL (14.0-18.0); Immature Granulocyte Absolute 0.02 K/mm3 (0.00-0.031); Immature Granulocyte Percent A 0.2 % (0-0.5); Lymphocytes Absolute Auto 3.35 K/mm3 (0.9-3.2); Lymphocytes Percent Auto 41.5 % (18.3-44.2); Mean Corpuscular HGB Conc 33.2 g/dl (32-36); Mean Corpuscular Hemoglobin 31.9 pg (26-34); Mean Corpuscular Volume 96.1 fl (80-100); Monocytes Absolute Auto 0.6 K/mm3 (0.1-0.6); Monocytes Percent Auto 7.4 % (2.6-8.5); Neutrophils Percent Auto 48.9 % (45.5-73.1); Platelet Count Result 198 k/mm3 (150-375); Red Blood Count 3.82 M/mm3 (4.6-6.20); Red Cell Distribution Width 13.2 % (11.5-14.5); White Blood Count 8.1 K/mm3 (4.5-10.0)
[2022-05-24 06:00] LABS: Alanine Aminotransferase 16 U/L (6-50); Albumin Level 4.1 g/dL (3.5-5.1); Alkaline Phosphatase 45 U/L (38-126); Anion Gap 8 mmol/L (8-16); Aspartate Amino Transferase 37 U/L (17-59); Bilirubin,Total 0.6 mg/dL (0.2-1.3); Blood Urea Nitrogen 10 mg/dL (9-20); Calcium 8.4 mg/dL (8.4-10.2); Carbon Dioxide 20 mmol/L (22-30); Chloride 114 mmol/L (98-107); Estimated CRCL calculation 142 ml/min; Estimated Glomerular Filt Rate > 60; Glucose 102 mg/dL (65-110); Magnesium 2.4 mg/dL (1.6-2.3); Potassium 3.3 mmol/L (3.4-5.0); Sodium 142 mmol/L (137-145)
[2022-05-24 06:01] LABS: Lactic Acid Reflex 0.7 mmol/L (0.7-2.0)
[2022-05-24 08:00] VITALS: PULSE 48
--- NOTE | 2022-05-24 09:11 | WPDNEUROLOGY ---
Neurology EEG Report General Information Date of Study: 05/24/22 TEST EEG DIAGNOSIS seizure disorder CONDITION OF RECORDING awake drowsy and sleep EEG NUMBER [id number] CLINICAL HISTORY patient has a history of seizures and alcohol abuse was found yesterday morning on the floor unresponsive. EEG DESCRIPTION Background rhythm consists of low-voltage poorly organized 8 to 10 hertz per 2nd alpha admixed with low-voltage 15 to 18 hertz per 2nd beta and bihemispheric medium voltage 3 to 4 hertz per 2nd delta with poor anterior-posterior gradient. No paroxysmal activities noted throughout the tracing. nonfocal, nonlateralizing. IMPRESSION abnormal record due to the presence of bihemispheric theta and delta activity these abnormalities could be suggestive of underlying organic a metabolic encephalopathy or postictal state there is no evidence of any paroxysmal discharges clinical correlation recommended
[2022-05-24 09:33] LABS: Glucose Point of Care 106 mg/dl (65-105)
[2022-05-24] MEDS: FOLIC ACID 1 MG/0.2 ML INJ IV PUSH (09:34)
[2022-05-24] MEDS: POTASSIUM CHLORIDE 20 MEQ TABLET 40 MEQ PO (09:34)
[2022-05-24] MEDS: busPIRone HCL 10 MG TABLET 30 MG PO (09:34)
[2022-05-24] MEDS: DIVALPROEX SODIUM DR 250 MG TABEC 1000 MG PO (09:34)
[2022-05-24] MEDS: oxyCODONE HCL (*CRX) 10 MG TAB SR 12HR PO (09:35)
[2022-05-24] MEDS: LACTULOSE 20 GM/30 ML UDC PO (09:35)
[2022-05-24] MEDS: THIAMINE HCL 200 MG/2 ML VIAL 100 MG IV PUSH (09:35)
[2022-05-24] MEDS: levETIRAcetam 1000MG/NACL100ML 1,000 MG/100 ML BAG 400 MG IVPB (09:35)
[2022-05-24] MEDS: SERTRALINE HCL 50 MG TABLET 100 MG PO (09:35)
[2022-05-24] MEDS: risperiDONE 0.5 MG TABLET PO (09:35)
[2022-05-24] MEDS: GABAPENTIN 300 MG CAPSULE 600 MG PO (09:35)
[2022-05-24 12:00] VITALS: PULSE 58
--- NOTE | 2022-05-24 12:09 | WPDNEURCNPN ---
Assessment and Plan Assessment and plan (1) Seizures: Code(s): R56.9 - Unspecified convulsions Status: Acute (2) Alcohol withdrawal: Qualifiers: Complication of substance-induced condition: with delirium Qualified Code(s): F10.231 - Alcohol dependence with withdrawal delirium Code(s): F10.239 - Alcohol dependence with withdrawal, unspecified Status: Acute Plan 1 seizure disorder most likely noncompliance with the anticonvulsants 2. Anxiety with depression and 3. Alcohol dependence Consult date: 05/24/22 HPI: Barrera Ely is a 41 year old male admitted to the hospital through the emergency room for chief complaint of seizure in addition to the history of alcohol abuse, traumatic brain injury, seizures, as per the information available from the EMS in the ER he was found on the floor by his parents in the morning and was reportedly confused and combative had been drinking a night before was unable to give any particular history on initially does have a history of a sneaking alcohol into the house and also sometimes not taking his medication mother found the empty bottle of alcohol in his room on the day of this particular admission when they heard a noise day found patient on the floor next to his bed when he he was trying to get up but was unable to do so. His medications included divalproex 250 mg 4 of them twice a day in addition to BuSpar 30 mg twice a day gabapentin 600 mg b.i.d. levetiracetam 1000 mg b.i.d. mirtazapine 45 mg at night oxycodone 10 mg twice a day risperidone 0.5 b.i.d. sertraline 100 mg b.i.d. and trazodone 100 mg at night, past history is pertinent for the anxiety with depression, seizure disorder, and traumatic brain injury, currently everyday smoker, initial vital signs stable with temp of 97.9? pulse 89 respirations 17 and pulse ox 98% on room air CBC normal also BMP UA positive for cannabinoids lactic acid 4.1 ammonia [address] head negative for the bleed chest x-ray negative cervical spine CT scan negative for the fracture EKG without any atrial fibrillation EEG personally reviewed abnormal because of the bihemispheric slow activity suggestive of postictal state [facility] Past Medical History Medical History (Updated 05/24/22 @ 07:52 by Kerry Monk) Alcoholism Alcoholism Depression with anxiety Drug abuse Previously opiates, currently cannabis and alcohol Head injury Seizure disorder Seizures TBI (traumatic brain injury) Traumatic brain injury Surgical History Surgical History (Updated 05/24/22 @ 07:52 by Kerry Monk) Hx of craniotomy Surgical history unknown Family History Family History (System 05/24/22 @ 07:52 by Kerry Monk) Unknown Family history unknown Father No problems noted. Mother No problems noted. Social History Social History (System 05/24/22 @ 07:52 by Kerry Monk) Social History: The patient reportedly lives with family members. The patient uses E cigarettes. There are no emergency contact numbers listed in his chart. Marijuana was positive on his drug tox screen Code status full code Smoking status: Current every day smoker Tobacco type: e-cigarettes/vaping Second hand tobacco smoke exposure: Yes Alcohol intake: unknown Substance use: current Substance use type: marijuana Lack of Transportation: No Lack of Food: Never True Current Housing: I Have Housing Concerned About Future Housing: No Difficulty Paying Gas/Electric Bills: No Difficulty Paying for Meds: No Currently Unemployed: No Education: High School Diploma/GED Difficulty w/ Childcare or Family Care: No Gender identity (if verbalized by the patient): Male Spiritual care concerns: No Meds Home Medications and Allergies Home Medications Medication Instructions Recorded Confirmed Type Algal [place]-3 DHA 25 mcg PO DAILY 08/24/20 08/24/20 History buspirone 10 mg tablet 1 mg PO BID 08/14
[2022-05-24 13:26] LABS: Glucose Point of Care 108 mg/dl (65-105)
[2022-05-24 14:00] VITALS: BP 116/77; PULSE 88; RESP 18; TEMP 36.8; O2SAT 98
--- NOTE | 2022-05-24 17:12 | PM.DS ---
DS: Admitting Diagnosis Discharge Date 05/24/22 Admitting Diagnosis Seizure DS: Discharge Diagnosis Discharge Diagnosis (1) Seizure disorder: Code(s): G40.909 - Epilepsy, unspecified, not intractable, without status epilepticus Status: Acute (2) Depression with anxiety: Code(s): F41.8 - Other specified anxiety disorders Status: Acute (3) Alcoholism: Code(s): F10.20 - Alcohol dependence, uncomplicated Status: Acute DS: Summary Hospital Course Reason for hospitalization: 41yo male with alcoholism, seizure d/o and TBI here for presumed seizure. Please see H&P for details. Hospital Course: On the morning of admission, the family heard a thud and walked into the patient's room and saw him on the floor.? The patient was having some repetitive speech and some confusion.?He was brought to the ED for evaluation. His white count 11.0.? Lactic acid was 4.1 and came down to 1.5 with fluid resuscitation.? Total creatinine kinase is 207 and ammonia level is 55.? Cervical spine CT showing no acute fracture.? Chest x-ray showing no acute cardiopulmonary disease.? Head CT showing no acute intracranial abnormality.? It was suspected that the patient had a seizure.? Neurology was consulted.?Concern that his seizure was related to noncompliance. The patient was given IV fluids, Ativan, Zofran and Keppra IV.? He was admitted for further care. The patient became more responsive and oriented. He states that he is compliant with his medications. He admits to using marijuana and he drinks 1-2 shots per day. He feels well. Eating okay. Walking to the bathroom here. Information was provided about alcohol rehab facilities. He overall did well and was able to be discharged home on 05/24/22. Status at Discharge Cognitive/behavioral status at discharge: Stable Time Spent with Patient Time attestation: Total time spent providing and/or coordinating discharge services: 35 minutes Time spent: Greater than 30 minutes Exam Narrative: AF 98.2 116/77 88 18 98% ra Gen - NARD Chest - CTA bilaterally, nml RR CV - RRR S1/S2 Abd - Soft, NT/ND, Positive BS Ext - No pedal edema Neuro - Alert and oriented. Nonfocal exam. Psych - Nml mood and affect Skin - Warm and dry DS: Data Data Completed and Pending Labs on day of discharge: Labs from last 24 hours 05/24/22 05/24/22 05/24/22 13:21 09:31 05:32 WBC RBC Hgb Hct MCV MCH MCHC RDW Plt Count MPV Immature Gran % (Auto) Neut % (Auto) Lymph % (Auto) Mcminn % (Auto) Eos % (Auto) Baso % (Auto) Lymph # (Auto) Mcminn # (Auto) Eos # (Auto) Baso # (Auto) Abs Immat Gran (auto) Absolute Neuts (auto) Absolute Nucleated RBC Nucleated RBC % Sodium 142 Potassium 3.3 L Chloride 114 H Carbon Dioxide 20 L Anion Gap 8 BUN 10 Creatinine 0.70 Estim Creat Clear Calc 142 Estimated GFR > 60 Glucose 102 POC Capillary Glucose 108 H 106 H Lactic Acid Calcium 8.4 Magnesium 2.4 H Total Bilirubin 0.6 AST 37 ALT 16 Alkaline Phosphatase 45 Total Protein 7.0 Albumin 4.1 05/24/22 05/24/22 05/24/22 05:32 05:32 05:17 WBC 8.1 RBC 3.82 L Hgb 12.2 L Hct 36.7 L MCV 96.1 MCH 31.9 MCHC 33.2 RDW 13.2 Plt Count 198 MPV 10.0 Immature Gran % (Auto) 0.2 Neut % (Auto) 48.9 Lymph % (Auto) 41.5 Mcminn % (Auto) 7.4 Eos % (Auto) 1.6 Baso % (Auto) 0.4 Lymph # (Auto) 3.35 H Mcminn # (Auto) 0.6 Eos # (Auto) 0.1 Baso # (Auto) 0.0 Abs Immat Gran (auto) 0.02 Absolute Neuts (auto) 4.0 Absolute Nucleated RBC 0.0 Nucleated RBC % 0.0 Sodium Potassium Chloride Carbon Dioxide Anion Gap BUN Creatinine Estim Creat Clear Calc Estimated GFR Glucose POC Capillary Glucose 104 Lactic Acid 0.7 Calcium Magnesium Total Bilirubin
[2022-05-26 12:21] LABS: Levetiracetam Keppra 14.7 mcg/mL (6.0-46.0)
== END 2022-05-24 18:39 | disposition home or self-care (01) ==
LOC: ANHED 09:38 → ANH3MED 18:03
PROVIDERS: Nurse Practitioner; Admitting Provider Family Medicine; Emergency Provider General Practice; Visit Provider Internal Medicine
DX: G40.909 Epilepsy, unspecified, not intractable, without status epilepticus (principal); G93.89 Other specified disorders of brain; F41.8 Other specified anxiety disorders; F10.20 Alcohol dependence, uncomplicated; R41.0 Disorientation, unspecified; Z87.820 Personal history of traumatic brain injury; J43.9 Emphysema, unspecified; I45.10 Unspecified right bundle-branch block; R74.8 Abnormal levels of other serum enzymes; Z91.14 Patient's other noncompliance with medication regimen; R94.01 Abnormal electroencephalogram [EEG]; F17.290 Nicotine dependence, other tobacco product, uncomplicated; F12.90 Cannabis use, unspecified, uncomplicated; Z79.899 Other long term (current) drug therapy; Z79.891 Long term (current) use of opiate analgesic; Z20.822 Contact with and (suspected) exposure to COVID-19
CPT/HCPCS: 36415; 70450; 71045; 72125; 80053; 80164; 80177; 80307; 81001; 82140; 82550; 82948; 83605; 83735; 84443; 85025; 85610; 85730; 87636; 93005; 95816; 96361; 96365; 96375; 96376; 99285; A9270; G0378; J1953; J2060; J3411; J3475; J7030

== ENCOUNTER 2022-12-09 14:22 | Outpatient (CLI) | payer MEDICARE, MEDICAID, SELFPAY ==
[2022-12-09 15:28] LABS: Basophils Percent Auto 0.7 % (0.2-1.2); Eosinophils Absolute Auto 0.1 K/mm3 (0-0.3); Hematocrit 43.1 % (42.0-52.0); Hemoglobin 14.4 g/dL (14.0-18.0); Immature Granulocyte Absolute 0.02 K/mm3 (0.00-0.031); Immature Granulocyte Percent A 0.3 % (0-0.5); Lymphocytes Absolute Auto 2.15 K/mm3 (0.9-3.2); Mean Corpuscular HGB Conc 33.4 g/dl (32-36); Mean Corpuscular Hemoglobin 31.8 pg (26-34); Mean Corpuscular Volume 95.1 fl (80-100); Monocytes Absolute Auto 0.4 K/mm3 (0.1-0.6); Monocytes Percent Auto 6.7 % (2.6-8.5); Neutrophils Absolute Auto 3.2 K/mm3 (1.3-6.7); Neutrophils Percent Auto 54.3 % (45.5-73.1); Platelet Count Result 248 k/mm3 (150-375); Red Blood Count 4.53 M/mm3 (4.6-6.20); Red Cell Distribution Width 13.6 % (11.5-14.5)
[2022-12-09 15:42] LABS: Alanine Aminotransferase 34 U/L (6-50); Albumin Level 4.9 g/dL (3.5-5.1); Alkaline Phosphatase 37 U/L (38-126); Anion Gap 16 mmol/L (8-16); Aspartate Amino Transferase 43 U/L (17-59); Bilirubin,Total 0.6 mg/dL (0.2-1.3); Blood Urea Nitrogen 11 mg/dL (9-20); CRP < 0.5 mg/dL (<1.0); Calcium 9.6 mg/dL (8.4-10.2); Carbon Dioxide 22 mmol/L (22-30); Chloride 102 mmol/L (98-107); Estimated Glomerular Filt Rate > 60; Glucose 145 mg/dL (65-110); Potassium 3.8 mmol/L (3.4-5.0); Sodium 140 mmol/L (137-145)
[2022-12-09 16:05] LABS: Erythrocyte Sedimentation Rate 2 mm/hr (0-20)
[2022-12-09 17:12] LABS: Valproic Acid 62.8 ug/mL (50-120)
[2022-12-13 17:33] LABS: Levetiracetam Keppra 11.4 mcg/mL (6.0-46.0)
== END 2022-12-09 14:23 | disposition home or self-care (01) ==
PROVIDERS: PCP Internal Medicine; Referring Provider Internal Medicine
DX: R56.9 Unspecified convulsions (principal)
CPT/HCPCS: 36415; 80053; 80164; 80177; 85025; 85652; 86140

== ENCOUNTER 2024-07-19 14:35 | Outpatient (CLI) | payer MEDICARE, MEDICAID, SELFPAY ==
--- OUTSIDE RECORDS SUMMARY | 2024-07-19 15:56 | XMS_ITS | Data Portability ---
Author Organization [place] [facility], [facility] Address [address] [facility] [address] [address] [place] [address] Assessment No assessment recorded. Plan of Treatment Reminders Order Date Submit Date Provider Last Modified By Organization Details Last Modified Time Details Appointments None recorded. Lab lipid panel, serum 2024 025 [facility] (Lab), [address] [place] [address], [address], 5 05:19:41 uric acid, serum or plasma 2024 025 [facility] (Lab), [address] [place] [address], [address], 5 05:19:41 CMP, serum or plasma 2024 025 [facility] (Lab), [address] [place] [address], [address], 5 05:19:41 hepatitis panel (A+B+C), acute, serum 2024 025 [facility] (Lab), [address] [place] [address], [address], 5 05:19:41 gamma-gluta myl transferase (ggt), serum 2024 025 [facility] (Lab), [address] [place] [address], [address], 5 05:19:41 Referral None recorded. Procedures None recorded. Surgeries None recorded. Imaging US, liver 2024 [facility], [address], [place], [address], 04:01:59 Medication Orders OxyContin 10 mg tablet,emma h resistant,e xtended release 2024 [facility] #32054, [address], [place], [place], [id number], 18:15:54 oxycodone-a cetaminophe n 10 mg-325 mg tablet 2024 [facility] #43927, [address], [place], [place], [id number], 18:15:55 OxyContin 10 mg tablet,emma h resistant,e xtended release 2024 [facility] #89337, [address], [place], [place], [id number], 17:17:34 oxycodone-a cetaminophe n 10 mg-325 mg tablet 2024 [facility] #06535, [address], [place], [place], [id number], 17:17:36 rosuvastati n 20 mg tablet 2024 [facility] #44881, [address], [place], [place], [id number], 14:34:33 allopurinol 100 mg tablet 2024 025 [facility] #24771, [address], [place], [place], [id number], 01/03/202 5 14:34:35 acamprosate 333 mg tablet,yaneth yed release 2024 025 [facility] #71969, [address], [place], [place], [id number], 5 14:34:33 cyclobenzap rine 5 mg tablet 2024 025 [facility] #05464, [address], [place], [place], [id number], 5 14:34:33 OxyContin 10 mg tablet,emma h resistant,e xtended release 2024 025 [facility] #58848, [address] [facility], [place], [place], [id number], 5 14:34:42 oxycodone-a cetaminophe n 10 mg-325 mg tablet 2024 025 [facility] #50971, [address], [place], [place], [id number], 5 14:34:42 trazodone 50 mg tablet 2024 025 [facility] #91233, [address], [place], [place], [id number], 5 14:34:33 gabapentin 600 mg tablet 2024 025 [facility] #92814, [address], [place], [place], [id number], 5 14:34:32 OxyContin 10 mg tablet,emma h resistant,e xtended release 2023 024 [facility] #59772, [address], [place], [place], [id number], 4 17:32:29 oxycodone-a cetaminophe n 10 mg-325 mg tablet 2023 024 [facility] #95207, [address] [place] [address], [id number], 4 17:32:31 trazodone 50 mg tablet 2023 024 [facility] #22515, [address] [place] [address], [id number], 4 17:32:31 OxyContin 10 mg tablet,emma h resistant,e xtended release 2023 024 [facility] #53195, [address] [place] [address], [id number], 4 16:07:07 oxycodone-a cetaminophe n 10 mg-325 mg tablet 2023 024 [facility] #72275, [address] [place] [address], [id number], 4 16:07:08 Patient TargetsNo targets recorded. Patient Instructions Encounter Date Encounter Id Patient Instructions Last Modified By Organization Details Last Modified Time 03/16/2024 [id number] When You Want to Lose Weight: Care Instructions [email or web address] Not available 03/16/2024 16:07:01 hypercalcemia: care instructions [email or web address] Not available 03/16/2024 16:07:01 epilepsy: care instructions [email or web address] Not available 03/16/2024 16:07:01 acute alcohol intoxication: care instructions [email or web address] Not available 03/16/2024 16:07:01 learning about mood disorders [email or web address] Not available 03/16/2024 16:07:01 04/18/2024 [id number] When You Want to Lose Weight: Care Instructions [email or web address] Not available 04/18/2024 17:32:23 hypercalcemia: care instructions [email or web address] Not available 04/18/2024 17:32:22 epilepsy: care instructions [email or web address] Not available 04/18/2024 17:32:22 acute alcohol intoxication: care instructions [email or web address] Not available 04/18/2024 17:32:22 learning about mood disorders [email or web address] Not available 04/18/2024 17:32:23 I spent a total of __25____ minutes (excluding separately reportable procedure time ) in care of this patient. [email or web address] Not available 04/18/2024 17:33:31 05/18/2024 [id number] hypercalcemia: care instructions [email or web address] Not available 05/18/2024 14:34:21 acute alcohol intoxication: care instructions [email or web address] Not available 05/18/2024 14:34:20 When You Want to Lose Weight: Care Instructions [email or web address] Not available 05/18/2024 14:34:20 epilepsy: care instructions [email or web address] Not available 05/18/2024 14:34:21 learning about mood disorders [email or web address] Not available 05/18/2024 14:34:21 I spent a total of __35____ minutes (excluding separately reportable procedure time ) in care of this patient. [email or web address] Not available 05/18/2024 14:36:43 06/19/2024 [id number] When You Want to Lose Weight: Care Instructions Not available 06/19/2024 17:17:28 hypercalcemia: care instructions [email or web address] Not available 06/19/2024 17:17:28 epilepsy: care instructions [email or web address] Not available 06/19/2024 17:17:28 acute alcohol intoxication: care instructions [email or web address] Not available 06/19/2024 17:17:28 learning about mood disorders Not available 06/19/2024 17:17:28 07/17/2024 [id number] When You Want to Lose Weight: Care Instructions [email or web address] Not available 07/17/2024 18:15:47 hypercalcemia: care instructions [email or web address] Not available 07/17/2024 18:15:47 epilepsy: care instructions [email or web address] Not available 07/17/2024 18:15:47 acute alcohol intoxication: care instructions [email or web address] Not available 07/17/2024 18:15:47 learning about mood disorders [email or web address] Not available 07/17/2024 18:15:47 Reason for Referral None Reported. Problems Name Problem SNOMED Code Status Onset Date Resolution Date Notes Provider Name and Address Organization Details Recorded Time Loss of motivati on 381095435 Completed 12/21/2022 Loss of motivati on Deandre Melchor MD [address] [facility] [address], [place], [address] , [facility] 3 16:42:54 Asthma 072616377 Completed 201712/21/2022 Asthma Deandre Melchor MD [address] [facility] [address], [place], [address] , [facility] 3 16:44:57 Lumbar radiculo saran 304658655 Active Lumbar radiculo saran Not Available [facility] 3 04:04:54 Urinary crystal, calcium oxalate 439406063 Completed 12/21/2022 Urinary crystal, calcium oxalate Deandre Melchor MD [address] [facility] [address], [place], [address] , [facility] 3 16:42:48 History of calculus of kidney 082976496 Completed 201712/21/2022 History of kidney stone Deandre Melchor MD [address] [facility] [address], [place], [address] , [facility] 3 16:45:04 Traumati c encephal opathy 082110225 Completed 201712/21/2022 Post-tra umatic brain syndrome Deandre Melchor MD [address] [facility] [address], [place], [address] , [facility] 3 16:42:44 Infectio n of skin and/or subcutan eous tissue 73064007 Completed 12/21/2022 Skin infectio n MD Rose [address] [facility] [address], [place], [address] , [facility] 3 16:43:04 Traumati c brain injury 523807587 Active Traumati c brain injury Not Available [facility] 3 04:04:55 Dysphagi a 98458340 Completed 12/21/2022 Dysphagi a Deandre Melchor MD [address] [facility] [address], [place], [address] , [facility] 3 16:42:15 Seizure disorder 338384787 Active Seizure disorder Not Available [facility] 3 04:04:56 Degenera tion of lumbar interver tebral disc 14697499 Active Degenera tion of lumbar interver tebral disc Not Available [facility] 3 04:04:57 Chronic pain syndrome 913724794 Active Chronic pain syndrome Not Available [facility] 3 04:04:57 Sleep deprivat ion 809145036 Completed 201712/21/2022 Sleep deprivat ion Deandre Melchor MD [address] [facility] [address], [place], [address] , [facility] 3 16:42:51 Alcohol abuse 12827753 Active Alcohol abuse Not Available [facility] 3 04:04:58 Depressi ve disorder 44214731 Active Depressi on Not Available [facility] 3 04:04:58 Disorder due to and followin g fracture of upper limb 05083555 Completed 12/21/2022 Late effect of fracture of upper extremit ies Deandre Melchor MD [address] [facility] [address], [place], [address] , [facility] 3 16:42:11 High risk drug monitori ng status 234856224 Active High risk drug monitori ng status Not Available [facility] 3 04:04:59 Bilatera l sacroili itis [id number] 279378 Completed 12/21/2022 Bilatera l sacroili itis Deandre Melchor MD [address] [facility] [address], [place], [address] , [facility] 3 16:42:01 Displace ment of lumbar interver tebral disc without myelopat hy 08852764 Active 2022 MD Rose [address], [place], [address] , [facility] 3 16:39:14 Osteoart hritis of knee 693066123 Active 2022 Deandre Melchor MD [address], [place], [address] , [facility] 3 17:36:12 Acquired cavus deformit y of foot 14511452 Active 2022 Deandre Melchor MD [address], [place], [address] , [facility] 3 17:37:42 Chronic insomnia 131570502 Active 2022 Deandre Melchor MD [address], [place], [address] , [facility] 3 17:44:57 Hidraden itis 81555445 Completed 202209/14/2023 Deandre Melchor MD [address], [place], [address] , [facility] 4 17:42:52 Carpal tunnel syndrome of right wrist 55392218809 9108 Active 2022 Deandre Melchor MD [address], [place], [address] , [facility] 3 14:48:16 Obesity 190448821 Active 2023 Deandre Melchor MD [address], [place], [address] , [facility] 4 17:36:37 Lacerati on of skin 890278824 Active 2023 Deandre Melchor MD [address] [facility] [address], [place], [address] , [facility] 4 16:23:54 Hyperuri cemia 23541777 Active 2023 Deandre Melchor MD [address], [place], [address] , [facility] 4 17:54:17 Mixed hyperlip idemia 214088109 Active 2023 Deandre Melchor MD [address] [facility] [address], [place], [address] , [facility] 4 17:54:36 Liver enzymes level above referenc e range 654213045 Active 2023 Deander Melchor MD [address] [facility] [address], [place], [address] , [facility] 4 17:59:22 Vitamin D deficien cy 65775250 Active 2023 Deandre Melchor MD [address] [facility] [address], [place], [address] , [facility] 4 18:03:39 Hypercal cemia 29362596 Active 2023 Deandre Melchor MD [address] [facility] [address], [place], [address] , [facility] 4 18:13:56 Diarrhea 03319655 Active 2023 Deandre Melchor MD [address] [facility] [address], [place], [address] , [facility] 4 12:21:21 Problem Notes None recorded. Medical Equipment None Reported. Allergies No known drug allergies Medications Name Sig Start Date Stop Date Status Note LastModified by Organization Details LastModified Time gabapentin 600 mg tablet TAKE 1 TABLET BY MOUTH TWICE DAILY active Not Available Not Available No t Available divalproex 250 mg tablet,yaneth wileyd release TAKE 4 (FOUR) TABLETS BY MOUTH 2 TIMES DAILY Oral for 30 04/25 completed Not Available Not Available Not Available trazodone 50 mg tablet TAKE 3 TABLETS BY MOUTH EVERY DAY at night DIRECTED active Not Available Not Available No t Available levetiracet am 500 mg tablet TAKE 2 TABLETS BY MOUTH TWICE DAILY active Not Available Not Available No t Available sertraline 100 mg tablet TAKE 1 TABLET BY MOUTH EVERY DAY active Not Available Not Available No t Available mirtazapine 45 mg disintegrat ing tablet TAKE 1 TABLET BY MOUTH EVERY NIGHT AT BEDTIME active Not Available Not Available No t Available allopurinol 100 mg tablet Take 1 tablet every day by oral route for 90 days. 2024 active Not Available Not Available Not Avai lable divalproex 500 mg tablet,yaneth yed release TAKE 2 TABLETS BY MOUTH TWICE DAILY active Not Available Not Available No t Available oxycodone-a cetaminophe n 10 mg-325 mg tablet TAKE 1 TABLET BY MOUTH EVERY 6 HOURS NEEDED FOR 30 DAYS 2024 active Not Available Not Available Not Avai lable trazodone 100 mg tablet TAKE 1 TABLET BY MOUTH EVERYDAY AT BEDTIME 02/28 completed Not Available Not Available Not Available mirtazapine 30 mg tablet TAKE 1 TABLET BY MOUTH EVERYDAY AT BEDTIME 07/21 completed Not Available Not Available Not Available buspirone 30 mg tablet TAKE 1 TABLET BY MOUTH TWICE DAILY active Not Available Not Available No t Available mirtazapine 45 mg tablet TAKE 1 TABLET BY MOUTH DAILY AT BEDTIME Oral for 90 11/08 completed Not Available Not Available Not Available folic acid 1 mg tablet TAKE 1 TABLET BY MOUTH EVERY DAY 2023 active Not Available Not Available Not Avai lable divalproex 125 mg capsule,del ayed release sprinkle TAKE 8 CAPSULES BY MOUTH TWICE DAILY 11/08 completed Not Available Not Available Not Available risperidone 0.5 mg tablet TAKE 1 TABLET BY MOUTH 2 TIMES DAILY. active Not Available Not Available No t Available divalproex ER 250 mg tablet,exte nded release 24 hr TAKE 3 TABLETS BY MOUTH EVERY MORNING AND 4 TABLETS EVERY NIGHT AT BEDTIME 02/09 completed Not Available Not Available Not Available cyclobenzap rine 5 mg tablet Take 1 tablet every day by oral route at bedtime. active Not Available Not Available No t Available rosuvastati n 20 mg tablet Take 1 tablet(s) every day by oral route at bedtime. 2024 active Not Available Not Available Not Avai lable acamprosate 333 mg tablet,yaneth yed release TAKE 2 TABLETS BY MOUTH 3 TIMES A DAY 2024 active Not Available Not Available Not Avai lable levetiracet am 1,000 mg tablet 05/18 completed Not Available Not Available Not Available OxyContin 10 mg tablet,emma h resistant,e xtended release TAKE 1 TABLET BY MOUTH EVERY 12 HOURS FOR 30 DAYS 2024 active Not Available Not Available Not Avai lable sertraline 200 mg capsule 1 capsule Orally Once a day for 30 11/08 completed Not Available Not Available Not Available Vitals Date Recorded Body height Body temperature Body mass index (BMI) Body weight Respiratory rate Oxygen saturation Oxygen saturation in Arterial blood by Pulse oximetry Systolic blood pressure Diastolic blood pressure Provider Name and Address Organization Details Last Updated DateTime 5 180.34 cm 98 [degF] 31.9 kg/m2 726396. 65 g 18 /min 96 % 96 % 118 mm[Hg] 82 mm[Hg] Samreen Claros [facility] 5 14:07:05 Date Recorded Heart rate Provider Name an d Address Organization Details Last Updated DateTime 05/18/2024 105 /min Deandre garcia MD [address] [address], [place], [address], [facility] 05/18/2024 14:36:10 Social History None recorded. Functional Status None recorded. Mental Status None recorded. Family History Nothing Reported Notes:FamilyHistoryDetails: COMMENTS:0 brother(s) , 0 sister(s) . 0 son(s) , 0 daughter(s) Medical History No medical history recorded. Immunizations Vaccine Type Date Status Note Provider Nam e and Address Organization Details Recorded Time COVID-19, mRNA, LNP-S, PF, 30 mcg/0.3 mL dose 1 completed Samreen garcia [facility] 03/02/2023 17:16:22 COVID-19, mRNA, LNP-S, PF, 30 mcg/0.3 mL dose 1 completed Samreen Eckart null, [facility] 03/02/2023 17:16:22 COVID-19, mRNA, LNP-S, PF, 30 mcg/0.3 mL dose 1 completed Samreen Eckart null, [facility] 03/02/2023 17:16:22 Tdap 0 completed Samreen Eckart null, [facility] 03/02/2023 17:16:22 Tdap 9 completed Samreen Eckart null, [facility] 03/02/2023 17:16:22 Influenza, split virus, trivalent, preservative 4 completed Deandre Melchor MD [address] [facility] [address], [place], [address], [facility] 04/18/2024 17:31:38 Past Encounters Encounter ID Performer Location Encounter Start Date Encounter Closed Date Diagnosis/Indication Diagnosis SNOMED-CT Code Diagnosis ICD10 Code Diagnosis Note [id number] Deandre Melchor MD [facility] [address] [facility] [address] [place] [address] 12/21/2022 14:13:59 12/21/2022 16:45:30 Degeneration of lumbar intervertebral disc 73800883 M51.36 Displaceme nt of lumbar intervertebral disc without myelopathy 38385160 M51.26 MRI 12/05 L4-L55 discc bulge inclined to the right indenting the anteriior thecaal sac aand causing miild rigght laterall receess and right neeural foramen narrrowing bilaterral ly coompressi ng the exiting nerve roots. Disc bulge meeasures about 3 mm. Diissc desiccaati on noted.L5-S S1 there is disc bullge indenting thee anteriorr thecal saac and causing mild lateral recesss and neeurofora anibal narrowing biilateraa lly comppressi ng the exiting nervve roootts. Disc bulge measuures about 4.5 mm. Disc desiccaati on noteed. MRI 11/2019: Moderatee disc degenerati on at L5-S1 with type I Modic discogeeni c endplate siiggnal changes. Milder disc diseaase at L4-L5.fora anibal narrowing at both L4-L5 and L5-N0Croob g pain management Status post epidurall injectiion L55/S1 11/2022 Alcohol abuse 98697701 F 10.10 Chronic aalcohol abuseCouun seleed on abstinence Naltrexoon ne conntraind dicated due to pain meedicatii oonOn acamprrosa te Chronic pain syndrome 37 3305713 G89.4 On Percocet annd OxyContinI ntermitten t phyysical therapyOn gabapentin Depressive disorder 3548 9007 F32.9 Chronic anxietty/d epressionO nn sertraline and DepakoteOn buspirrone per psychiatry Alsso addded on risperidoo neSee psycchhiat riist High risk drug monitoring status 495538426 Z79.891 On multipple pain medication Lumbar radiculopathy 128 593580 M54.16 Due to discc bulge and neural fforaminal stenoossis Sees painn management On chronic opiate thherapy Seizure disorder 2258559 02 G40.909 On Keppra gabapentii n and DepaakoteL evels were good 11/2022 Traumatic brain injury 834091064 S06.9X0S History of injury and TBI 32 Deandre Melchor MD [facility] [address] [facility] [address] [place] [address] 01/19/2023 12:17:24 01/21/2023 16:26:37 Degeneration of lumbar intervertebral disc 55647030 M51.36 MRI 12/05 L4-L55 discc bulge inclined to the right indenting the anteriior thecaal sac aand causing miild rigght laterall receess and right neeural foramen narrrowing bilaterral ly coompressi ng the exiting nerve roots. Disc bulge meeasures about 3 mm. Diissc desiccaati on noted.L5-S S1 there is disc bullge indenting thee anteriorr thecal saac and causing mild lateral recesss and neeurofora anibal narrowing biilateraa lly comppressi ng the exiting nervve roootts. Disc bulge measuures about 4.5 mm. Disc desiccaati on noteed. MRI 11/2019: Moderatee disc degenerati on at L5-S1 with type I Modic discogeeni c endplate siiggnal changes. Milder disc diseaase at L4-L5.fora anibal narrowing at both L4-L5 and L5-A6Sdjka g pain management Status post epidurall injectiion L55/S1 11/2022 Displaceme nt of lumbar intervertebral disc without myelopathy 00248328 M51.26 MRI 12/05 L4-L55 discc bulge inclined to the right indenting the anteriior thecaal sac aand causing miild rigght laterall receess and right neeural foramen narrrowing bilaterral ly coompressi ng the exiting nerve roots. Disc bulge meeasures about 3 mm. Diissc desiccaati on noted.L5-S S1 there is disc bullge indenting thee anteriorr thecal saac and causing mild lateral recesss and neeurofora anibal narrowing biilateraa lly comppressi ng the exiting nervve roootts. Disc bulge measuures about 4.5 mm. Disc desiccaati on noteed. MRI 11/2019: Moderatee disc degenerati on at L5-S1 with type I Modic discogeeni c endplate siiggnal changes. Milder disc diseaase at L4-L5.fora anibal narrowing at both L4-L5 and L5-J1Svytw g pain management Status post epidurall injectiion L55/S1 11/2022 Alcohol abuse 70640923 F 10.10 Chronic aalcohol abuseCouun seleed on abstinence Naltrexoon ne conntraind dicated due to pain meedicatii oonOn acamprrosa te Chronic pain syndrome 37 9388381 G89.4 On Percocet annd OxyContinI ntermitten t phyysical therapyOn gabapentin Depressive disorder 3548 9007 F32.9 Chronic anxietty/d epressionO nn sertraline and DepakoteOn buspirrone per psychiatry Alsso addded on risperidoo neSee psycchhiat riist High risk drug monitoring status 387759042 Z79.891 On multipple pain medication Lumbar radiculopathy 128 451140 M54.16 Due to discc bulge and neural fforaminal stenoossis Sees painn management On chronic opiate thherapy Seizure disorder 3750752 02 G40.909 On Keppra gabapentii n and DepaakoteL evels were good 11/2022 Traumatic brain injury 371240989 S06.9X0S History of injury and TBI Deandre Melchor MD [facility] [address] [facility] [address] [place] [address] 03/02/2023 16:48:47 03/02/2023 17:48:38 Degeneration of lumbar intervertebral disc 19863383 M51.36 MRI 12/05 L4-L55 disc bulge inclined to the right indenting the anterior thecal sac and causing mild right lateral recess and right neural foramen narrowing bilaterall y compressin g the exiting nerve roots. Disc bulge measures about 3 mm. Disc dessicatio n noted.L5-S 1 there is disc bulge indenting thee anteriorr thecal saac and causing mild lateral recesss and neeurofora anibal narrowing biilateraa lly compressin g the exiting nerve roots. Disc bulge measures about 4.5 mm. Disc dessicatio n noted. MRI 11/2019: Moderate disc degenerati on at L5-S1 with type I Modic discogeeni c endplate siiggnal changes. Milder disc disease at L4-L5.fora anibal narrowing at both L4-L5 and L5-F6Acuzi g pain management Status post epidural injection L5/S1 11/2022 Chronic pain syndrome 37 9018601 G89.4 On Percocet annd OxyContinI ntermitten t phyysical therapyOn gabapentin Displaceme nt of lumbar intervertebral disc without myelopathy 24147618 M51.26 MRI 12/05 L4-L55 discc bulge inclined to the right indenting the anteriior thecaal sac aand causing miild rigght laterall receess and right neeural foramen narrrowing bilaterral ly coompressi ng the exiting nerve roots. Disc bulge meeasures about 3 mm. Diissc desiccaati on noted.L5-S S1 there is disc bullge indenting thee anteriorr thecal saac and causing mild lateral recesss and neeurofora anibal narrowing biilateraa lly comppressi ng the exiting nervve roootts. Disc bulge measuures about 4.5 mm. Disc desiccaati on noteed. MRI 11/2019: Moderatee disc degenerati on at L5-S1 with type I Modic discogeeni c endplate siiggnal changes. Milder disc diseaase at L4-L5.fora anibal narrowing at both L4-L5 and L5-G8Jobfy g pain management Status post epidurall injectiion L55/S1 11/2022 PDMP reviewed Alcohol abuse 22547725 F 10.10 Chronic aalcohol abuseCouun seleed on abstinence Naltrexoon ne conntraind dicated due to pain meedicatii oonOn acamprrosa te Depressive disorder 3548 9007 F32.9 Chronic anxietty/d epressionO nn sertraline and DepakoteOn buspirrone per psychiatry Alsso addded on risperidoo neSee psycchhiat riist High risk drug monitoring status 498163489 Z79.891 On multipple pain medication Lumbar radiculopathy 128 697775 M54.16 Due to disc bulge and neural foraminal stenoossis Sees painn management On chronic opiate thherapy Seizure disorder 5709640 02 G40.909 On Keppra gabapentii n and DepaakoteL evels were good 11/2022 Traumatic brain injury 235637416 S06.9X0S History of injury and TBI Osteoarthr itis of knee 302384041 M17.9 popping sensationw il get xray knees bilateral Acquired c avus deformity of foot 31729869 M21.6X9 send referral to Chronic insomnia 8083749 04 F51.04 on trazodone prnwill increase to 150 mg daily [id number] Deandre Melchor MD [facility] [address] [facility] [address] [place] [address] 03/30/2023 11:58:22 03/30/2023 12:56:39 Degeneration of lumbar intervertebral disc 80743459 M51.36 MRI 12/05 L4-L55 disc bulge inclined to the right indenting the anterior thecal sac and causing mild right lateral recess and right neural foramen narrowing bilaterall y compressin g the exiting nerve roots. Disc bulge measures about 3 mm. Disc dessicatio n noted.L5-S 1 there is disc bulge indenting thee anteriorr thecal saac and causing mild lateral recesss and neeurofora anibal narrowing biilateraa lly compressin g the exiting nerve roots. Disc bulge measures about 4.5 mm. Disc dessicatio n noted.MRI 11/2019: Moderate disc degenerati on at L5-S1 with type I Modic discogeeni c endplate siiggnal changes. 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 Disc bulge meeasures about 3 mm. Diissc desiccaati on noted.L5-S S1 there is disc bullge indenting thee anteriorr thecal saac and causing mild lateral recesss and neeurofora anibal narrowing biilateraa lly comppressi ng the exiting nervve roootts. Disc bulge measuures about 4.5 mm. Disc desiccaati on noteed. MRI 11/2019: Moderatee disc degenerati on at L5-S1 with type I Modic discogeeni c endplate siiggnal changes. Milder disc diseaase at L4-L5.fora anibal narrowing at both L4-L5 and L5-Z8Wcfhc g pain management Status post epidurall injectiion L55/S1 11/2022 PDMP reviewed Alcohol abuse 28400704 F 10.10 Chronic alcohol abusecouns eled on abstinence naltrexone contraindi cated due to pain medicatonO n acamprosat e Depressive disorder 1638 9007 F32.9 Chronic anxietty/d epressionO nn sertraline and DepakoteOn buspirrone per psychiatry Alsso addded on risperidoo neSee psycchhiat riist High risk drug monitoring status 041832078 Z79.891 On multipple pain medication Lumbar radiculopathy 128 816472 M54.16 Due to disc bulge and neural foraminal stenoossis Sees painn management On chronic opiate thherapy Seizure disorder 3482228 02 G40.909 On Keppra gabapentii n and DepaakoteL evels were good 11/2022 Traumatic brain injury 097095533 S06.9X0S History of injury and TBI Osteoarthr itis of knee 725584397 M17.9 popping sensationw il get xray knees bilateral Acquired c avus deformity of foot 46330268 M21.6X9 send referral to Chronic insomnia 8230618 04 F51.04 on trazodone prnincreas ed to 150 mg daily [id number] Deandre Melchor MD [facility] [address] [facility] [address] [place] [address] 04/25/2023 14:08:04 04/25/2023 14:55:19 Degeneration of lumbar intervertebral disc 89168404 M51.36 MRI 12/05 L4-L55 disc bulge inclined to the right indenting the anterior thecal sac and causing mild right lateral recess and right neural foramen narrowing bilaterall y compressin g the exiting nerve roots. Disc bulge measures about 3 mm. Disc dessicatio n noted.L5-S 1 there is disc bulge indenting thee anteriorr thecal saac and causing mild lateral recesss and neeurofora anibal narrowing biilateraa lly compressin g the exiting nerve roots. Disc bulge measures about 4.5 mm. Disc dessicatio n noted.MRI 11/2019: Moderate disc degenerati on at L5-S1 with type I Modic discogeeni c endplate siiggnal changes. Milder disc disease at L4-L5.fora anibal narrowing at both L4-L5 and L5-P0Wgjyu g pain management Status post epidural injection L5/S1 11/2022 inteventio n pain customs consultant Chronic pain syndrome 37 6746771 G89.4 On Percocet annd OxyContinI ntermitten t physical therapyOn gabapentin Displaceme nt of lumbar intervertebral disc without myelopathy 45112642 M51.26 MRI 12/05 L4-L55 discc bulge inclined to the right indenting the anteriior thecaal sac aand causing miild rigght laterall receess and right neeural foramen narrrowing bilaterral ly coompressi ng the exiting nerve roots. Disc bulge meeasures about 3 mm. Diissc desiccaati on noted.L5-S S1 there is disc bullge indenting thee anteriorr thecal saac and causing mild lateral recesss and neeurofora anibal narrowing biilateraa lly comppressi ng the exiting nervve roootts. Disc bulge measuures about 4.5 mm. Disc desiccaati on noteed. MRI 11/2019: Moderatee disc degenerati on at L5-S1 with type I Modic discogeeni c endplate siiggnal changes. Milder disc diseaase at L4-L5.fora anibal narrowing at both L4-L5 and L5-Y5Xrkxs g pain management Status post epidurall injectiion L55/S1 11/2022 PDMP reviewed Alcohol abuse 52906553 F 10.10 Chronic alcohol abusecouns eled on abstinence naltrexone contraindi cated due to pain medicatonO n acamprosat e Depressive disorder 3548 9007 F32.9 Chronic anxietty/d epressionO nn sertraline and DepakoteOn buspirrone per psychiatry Alsso addded on risperidoo neSee psycchhiat riist High risk drug monitoring status 138000810 Z79.891 On multiple pain medication Lumbar radiculopathy 128 995849 M54.16 Due to disc bulge and neural foraminal stenosisSe es pain management On chronic opiate therapy Seizure disorder 3448909 02 G40.909 On Keppra gabapentii n and DepaakoteL evels were good 3depa kote lowered by seizure speicailis t to 750 mg in am and 1000 mg in pm Traumatic brain injury 485817899 S06.9X0S History of injury and TBI Osteoarthr itis of knee 297627690 M17.9 popping sensationw il get xray knees bilateralp ending Acquired c avus deformity of foot 37606370 M21.6X9 send referral to Dr. Lisa norris for Chronic insomnia 3020789 04 F51.04 on trazodone 150 mg daily Hidradenitis 38154021 L7 3.2 imporving. will do topical antibiotic s. 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 [id number] Deandre Melchor MD [facility] [address] [facility] [address] [place] [address] 05/25/2023 18:06:16 05/26/2023 14:25:02 Hidradenitis 88319426 L73.2 imporving. but still small left.on topical antibtioti cs. Degenerati on of lumbar intervertebral disc 55416368 M51.36 MRI 12/05 L4-L55 disc bulge inclined to the right indenting the anterior thecal sac and causing mild right lateral recess and right neural foramen narrowing bilaterall y compressin g the exiting nerve roots. Disc bulge measures about 3 mm. Disc dessicatio n noted.L5-S 1 there is disc bulge indenting thee anteriorr thecal saac and causing mild lateral recesss and neeurofora anibal narrowing biilateraa lly compressin g the exiting nerve roots. Disc bulge measures about 4.5 mm. Disc dessicatio n noted.MRI 11/2019: Moderate disc degenerati on at L5-S1 with type I Modic discogeeni c endplate siiggnal changes. Milder disc disease at L4-L5.fora anibal narrowing at both L4-L5 and L5-I0Gmgvn g pain management Status post epidural injection L5/S1 11/2022 inteventio n pain customs consultant Chronic pain syndrome 37 4970982 G89.4 On Percocet annd OxyContinI ntermitten t physical therapyOn gabapentin Displaceme nt of lumbar intervertebral disc without myelopathy 35067620 M51.26 MRI 12/05 L4-L55 discc bulge inclined to the right indenting the anteriior thecaal sac aand causing miild rigght laterall receess and right neeural foramen narrrowing bilaterral ly coompressi ng the exiting nerve roots. Disc bulge meeasures about 3 mm. Diissc desiccaati on noted.L5-S S1 there is disc bullge indenting thee anteriorr thecal saac and causing mild lateral recesss and neeurofora anibal narrowing biilateraa lly comppressi ng the exiting nervve roootts. Disc bulge measuures about 4.5 mm. Disc desiccaati on noteed. MRI 11/2019: Moderatee disc degenerati on at L5-S1 with type I Modic discogeeni c endplate siiggnal changes. Milder disc diseaase at L4-L5.fora anibal narrowing at both L4-L5 and L5-J4Bmetr g pain management Status post epidurall injectiion L55/S1 11/2022 PDMP reviewed Alcohol abuse 26468338 F 10.10 Chronic alcohol abusecouns eled on abstinence naltrexone contraindi cated due to pain medicatonO n acamprosat e Depressive disorder 3548 9007 F32.9 Chronic anxietty/d epressionO nn sertraline and DepakoteOn buspirrone per psychiatry Als addded on risperidoo neSee psycchhiat riist High risk drug monitoring status 641560467 Z79.891 On multiple pain medication Lumbar radiculopathy 128 867378 M54.16 Due to disc bulge and neural foraminal stenosisSe es pain management On chronic opiate therapy Seizure disorder 8631628 02 G40.909 On Keppra gabapentii n and DepaakoteL evels were good 3depa kote lowered by seizure speicailis t to 750 mg in am and 1000 mg in pm Traumatic brain injury 022624651 S06.9X0S History of injury and TBI Osteoarthr itis of knee 258561758 M17.9 popping sensationw il get xray knees bilateralp ending Acquired c avus deformity of foot 41040722 M21.6X9 [address] referral [address] Dr[address] 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 but he did not use it [id number] Deandre Melchor MD [facility] [address] [facility] [address] [facility] [address] [place] [address] 06/24/2023 14:38:07 06/27/2023 18:08:53 Degeneration of lumbar intervertebral disc 05299048 M51.36 MRI 12/05 L4-L55 disc bulge inclined to the right indenting the anterior thecal sac and causing mild right lateral recess and right neural foramen narrowing bilaterall y compressin g the exiting nerve roots. Disc bulge measures about 3 mm. Disc dessicatio n noted.L5-S 1 there is disc bulge indenting thee anteriorr thecal saac and causing mild lateral recesss and neeurofora anibal narrowing biilateraa lly compressin g the exiting nerve roots. Disc bulge measures about 4.5 mm. Disc dessicatio n noted.MRI 11/2019: Moderate disc degenerati on at L5-S1 with type I Modic discogeeni c endplate siiggnal changes. Milder disc disease at L4-L5.fora anibal narrowing at both L4-L5 and L5-C8Fzxej g pain management Status post epidural injection L5/S1 11/2022 inteventio nal pain customs consultant Chronic pain syndrome 37 9088853 G89.4 On Percocet annd OxyContinI ntermitten t physical therapyOn gabapentin Displaceme nt of lumbar intervertebral disc without myelopathy 99061030 M51.26 MRI 12/05 L4-L55 discc bulge inclined to the right indenting the anteriior thecaal sac aand causing miild rigght laterall receess and right neeural foramen narrrowing bilaterral ly coompressi ng the exiting nerve roots. Disc bulge meeasures about 3 mm. Diissc desiccaati on noted.L5-S S1 there is disc bullge indenting thee anteriorr thecal saac and causing mild lateral recesss and neeurofora anibal narrowing biilateraa lly comppressi ng the exiting nervve roootts. Disc bulge measuures about 4.5 mm. Disc desiccaati on noteed. MRI 11/2019: Moderatee disc degenerati on at L5-S1 with type I Modic discogeeni c endplate siiggnal changes. Milder disc diseaase at L4-L5.fora anibal narrowing at both L4-L5 and L5-L0Hyksb g pain management Status post epidurall injectiion L55/S1 11/2022 PDMP reviewed Alcohol abuse 26455760 F 10.10 Chronic alcohol abusecouns eled on abstinence naltrexone contraindi cated due to pain medicatonO n acamprosat e Depressive disorder 3548 9007 F32.9 Chronic anxietty/d epressionO nn sertraline and DepakoteOn buspirrone per psychiatry Alsso addded on risperidoo neSee psycchhiat riist High risk drug monitoring status 147919664 Z79.891 On multiple pain medication Lumbar radiculopathy 128 964591 M54.16 Due to disc bulge and neural foraminal stenosisSe es pain management On chronic opiate therapy Seizure disorder 9048436 02 G40.909 On Keppra gabapentii n and DepaakoteL evels were good epa kote lowered by seizure speicailis t to 750 mg in am and 1000 mg in pm Traumatic brain injury 464513417 S06.9X0S History of injury and TBI Osteoarthr itis of knee 270405709 M17.9 popping sensationw il get xray knees bilateralp ending Acquired c avus deformity of foot 13656905 M21.6X9 send referral to Dr. 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 but he did not use it [id number] Deandre Melchor MD [facility] [address] [facility] [address] [place] [address] 07/22/2023 13:51:10 07/25/2023 14:44:10 Chronic insomnia 717256234 F51.04 on trazodone 150 mg daily Degenerati on of lumbar intervertebral disc 24855188 M51.36 MRI 12/05 L4-L55 disc bulge inclined to the right indenting the anterior thecal sac and causing mild right lateral recess and right neural foramen narrowing bilaterall y compressin g the exiting nerve roots. Disc bulge measures about 3 mm. Disc dessicatio n noted.L5-S 1 there is disc bulge indenting thee anterior thecal saac and causing mild lateral recesss and neeurofora anibal narrowing bilaterall y compressin g the exiting nerve roots. Disc bulge measures about 4.5 mm. Disc dessicatio n noted.MRI 11/2019: Moderate disc degenerati on at L5-S1 with type I Modic discogeeni c endplate siiggnal changes. Milder disc disease at L4-L5.fora anibal narrowing at both L4-L5 and L5-Z0Zpnhd g pain management Status post epidural injection L5/S1 11/2022 interventi onal pain customs consultant Currently working with chiropract or [id number] Deandre Melchor MD [facility] [address] [facility] [address] [place] [address] 09/14/2023 17:37:47 09/14/2023 18:04:33 Chronic insomnia 740300945 F51.04 on trazodone 150 mg daily Degenerati on of lumbar intervertebral disc 20147940 M51.36 MRI 12/05 L4-L55 disc bulge inclined to the right indenting the anterior thecal sac and causing mild right lateral recess and right neural foramen narrowing bilaterall y compressin g the exiting nerve roots. Disc bulge measures about 3 mm. Disc dessicatio n noted.L5-S 1 there is disc bulge indenting thee anterior thecal saac and causing mild lateral recesss and neeurofora anibal narrowing bilaterall y compressin g the exiting nerve roots. Disc bulge measures about 4.5 mm. Disc dessicatio n noted.MRI 11/2019: Moderate disc degenerati on at L5-S1 with type I Modic discogeeni c endplate siiggnal changes. Milder disc disease at L4-L5.fora anibal narrowing at both L4-L5 and L5-B7Pisgz g pain management Status post epidural injection L5/S1 11/2022 interventi onal pain customs consultant Currently working with chiropract or Chronic pain syndrome 37 3570051 G89.4 On Percocet annd OxyContinI ntermitten t physical therapyOn gabapentin Displaceme nt of lumbar intervertebral disc without myelopathy 89546018 M51.26 MRI 12/05 L4-L55 discc bulge inclined to the right indenting the anteriior thecaal sac aand causing miild rigght laterall receess and right neeural foramen narrrowing bilaterral ly coompressi ng the exiting nerve roots. Disc bulge meeasures about 3 mm. Diissc desiccaati on noted.L5-S S1 there is disc bullge indenting thee anteriorr thecal saac and causing mild lateral recesss and neeurofora anibal narrowing biilateraa lly comppressi ng the exiting nervve roootts. Disc bulge measuures about 4.5 mm. Disc desiccaati on noteed. MRI 11/2019: Moderatee disc degenerati on at L5-S1 with type I Modic discogeeni c endplate siiggnal changes. Milder disc diseaase at L4-L5.fora anibal narrowing at both L4-L5 and L5-J6Bysvi g pain management Status post epidurall injectiion L55/S1 11/2022 PDMP reviewed Alcohol abuse 90553455 F 10.10 Chronic alcohol abusecouns eled on abstinence naltrexone contraindi cated due to pain medicatonO n acamprosat anupam drinking Depressive disorder 3548 9007 F32.9 Chronic anxietty/d epressionO nn sertraline and DepakoteOn buspirrone per psychiatry Alsso addded on risperidoo neSee psychiatri st High risk drug monitoring status 081903692 Z79.891 On multiple pain medication Lumbar radiculopathy 128 474186 M54.16 Due to disc bulge and neural foraminal stenosisSe es pain management On chronic opiate therapy Seizure disorder 2469906 02 G40.909 On Keppra gabapentii n and DepaakoteL evels were good 3depa kote lowered by seizure speicailis t to 750 mg in am and 1000 mg in pmwill refer to local neurologis t here Traumatic brain injury 059062600 S06.9X0S History of injury and TBI Osteoarthr itis of knee 828129802 M17.9 popping sensationw il get xray knees bilateralp ending Acquired c avus deformity of foot 40349100 M21.6X9 send referral to Dr. 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 but he did not use it [id number] Deandre Melchor MD [facility] [address] [facility] [address] [place] [address] 10/13/2023 10:33:48 10/13/2023 12:55:29 Degeneration of lumbar intervertebral disc 27236726 M51.36 MRI 12/05 L4-L55 disc bulge inclined to the right indenting the anterior thecal sac and causing mild right lateral recess and right neural foramen narrowing bilaterall y compressin g the exiting nerve roots. Disc bulge measures about 3 mm. Disc dessicatio n noted.L5-S 1 there is disc bulge indenting thee anterior thecal saac and causing mild lateral recesss and neeurofora anibal narrowing bilaterall y compressin g the exiting nerve roots. Disc bulge measures about 4.5 mm. Disc dessicatio n noted.MRI 11/2019: Moderate disc degenerati on at L5-S1 with type I Modic discogeeni c endplate siiggnal changes. Milder disc disease at L4-L5.fora anibal narrowing at both L4-L5 and L5-K9Vluiu g pain management Status post epidural injection L5/S1 11/2022 interventi onal pain customs consultant Currently working with chiropract or Chronic insomnia 2083358 04 F51.04 on trazodone 150 mg daily Chronic pain syndrome 37 9028616 G89.4 On Percocet annd OxyContinI ntermitten t physical therapyOn gabapentin Displaceme nt of lumbar intervertebral disc without myelopathy 79094446 M51.26 MRI 12/05 L4-L55 discc bulge inclined to the right indenting the anteriior thecaal sac aand causing miild rigght laterall receess and right neeural foramen narrrowing bilaterral ly coompressi ng the exiting nerve roots. Disc bulge meeasures about 3 mm. Diissc desiccaati on noted.L5-S S1 there is disc bullge indenting thee anteriorr thecal saac and causing mild lateral recesss and neeurofora anibal narrowing biilateraa lly comppressi ng the exiting nervve roootts. Disc bulge measuures about 4.5 mm. Disc desiccaati on noteed. MRI 11/2019: Moderatee disc degenerati on at L5-S1 with type I Modic discogeeni c endplate siiggnal changes. Milder disc diseaase at L4-L5.fora anibal narrowing at both L4-L5 and L5-D5Dfrxj g pain management Status post epidurall injectiion L55/S1 11/2022 PDMP reviewed Alcohol abuse 07812880 F 10.10 Chronic alcohol abusecouns eled on abstinence naltrexone contraindi cated due to pain medicatonO n acamprosat anupam drinking Depressive disorder 3548 9007 F32.9 Chronic anxietty/d epressionO nn sertraline and DepakoteOn buspirrone per psychiatry Alsso addded on risperidoo neSee psychiatri st High risk drug monitoring status 522980219 Z79.891 On multiple pain medication Lumbar radiculopathy 128 874500 M54.16 Due to disc bulge and neural foraminal stenosisSe es pain management On chronic opiate therapy Seizure disorder 4916452 02 G40.909 On Keppra gabapentii n and DepaakoteL evels were good epa kote lowered by seizure speicailis t to 750 mg in am and 1000 mg in pmreferred to local neurologis t here; noone called him yet. provided the number Traumatic brain injury 459186147 S06.9X0S History of injury and TBI Osteoarthr itis of knee 218975409 M17.9 popping sensationw il get xray knees bilateralp ending Acquired c avus deformity of foot 20699649 M21.6X9 send referral to Dr. 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 but he did not use it [id number] Deandre Melchor MD [facility] [address] [facility] [address] [place] [address] 11/09/2023 17:15:13 11/20/2023 21:53:16 Degeneration of lumbar intervertebral disc 25971995 M51.36 MRI 12/05 L4-L55 disc bulge inclined to the right indenting the anterior thecal sac and causing mild right lateral recess and right neural foramen narrowing bilaterall y compressin g the exiting nerve roots. Disc bulge measures about 3 mm. Disc dessicatio n noted.L5-S 1 there is disc bulge indenting thee anterior thecal saac and causing mild lateral recesss and neeurofora anibal narrowing bilaterall y compressin g the exiting nerve roots. Disc bulge measures about 4.5 mm. Disc dessicatio n noted.MRI 11/2019: Moderate disc degenerati on at L5-S1 with type I Modic discogeeni c endplate siiggnal changes. Milder disc disease at L4-L5.fora anibal narrowing at both L4-L5 and L5-E2Cttke g pain management Status post epidural injection L5/S1 11/2022 interventi onal pain customs consultant finished with chiropract or Chronic insomnia 0856708 04 F51.04 on trazodone 150 mg dailyalso on mirtazapin e Chronic pain syndrome 37 9886738 G89.4 On Percocet annd OxyContinI ntermitten t physical therapyOn gabapentin Seizure disorder 6580516 02 G40.909 On Keppra gabapentii n and DepaakoteL evels were good 3depa kote lowered by seizure speicailis t to 750 mg in am and 1000 mg in pmreferred to local neurologis t here; noone called him yet. provided the number Displaceme nt of lumbar intervertebral disc without myelopathy 26864428 M51.26 MRI 12/05 L4-L55 discc bulge inclined to the right indenting the anteriior thecaal sac aand causing miild rigght laterall receess and right neeural foramen narrrowing bilaterral ly coompressi ng the exiting nerve roots. Disc bulge meeasures about 3 mm. Diissc desiccaati on noted.L5-S S1 there is disc bullge indenting thee anteriorr thecal saac and causing mild lateral recesss and neeurofora anibal narrowing biilateraa lly comppressi ng the exiting nervve roootts. Disc bulge measuures about 4.5 mm. Disc desiccaati on noteed. MRI 11/2019: Moderatee disc degenerati on at L5-S1 with type I Modic discogeeni c endplate siiggnal changes. Milder disc diseaase at L4-L5.fora anibal narrowing at both L4-L5 and L5-F3Omaay g pain management Status post epidurall injectiion L55/S1 11/2022 PDMP reviewed Alcohol abuse 98468400 F 10.10 Chronic alcohol abusecouns eled on abstinence naltrexone contraindi cated due to pain medicatonO n acamprosat anupam drinking but intermitte ntly Depressive disorder 3548 9007 F32.9 Chronic anxietty/d epressionO nn sertraline and DepakoteOn buspirrone per psychiatry [place] addded on risperidoo neSee psychiatri st High risk drug monitoring status 887503275 Z79.891 On multiple pain medication Lumbar radiculopathy 128 996152 M54.16 Due to disc bulge and neural foraminal stenosisSe es pain management On chronic opiate therapy Traumatic brain injury 171864957 S06.9X0S History of injury and TBI Osteoarthr itis of knee 842770049 M17.9 popping sensationw il get xray knees bilateralp ending Acquired c avus deformity of foot 25756869 M21.6X9 send referral to Dr. 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 but he did not use it Obesity 974280656 E66.9 weight gain has been ongoing.fabricio larios some medication s regularlyd isucssed in detail about diet and physical activitydi scussed metfomrin and ozempic kind of medication s with the patient [id number] Deandre Melchor MD [facility] [address] [place] [address] 12/08/2023 15:54:09 12/08/2023 16:58:54 Degeneration of lumbar intervertebral disc 83406582 M51.36 MRI 12/05 L4-L55 disc bulge inclined to the right indenting the anterior thecal sac and causing mild right lateral recess and right neural foramen narrowing bilaterall y compressin g the exiting nerve roots. Disc bulge measures about 3 mm. Disc dessicatio n noted.L5-S 1 there is disc bulge indenting thee anterior thecal saac and causing mild lateral recesss and neeurofora anibal narrowing bilaterall y compressin g the exiting nerve roots. Disc bulge measures about 4.5 mm. Disc dessicatio n noted.MRI 11/2019: Moderate disc degenerati on at L5-S1 with type I Modic discogeeni c endplate siiggnal changes. Milder disc disease at L4-L5.fora anibal narrowing at both L4-L5 and L5-G5Pnumc g pain management Status post epidural injection L5/S1 11/2022 interventi onal pain customs consultant finished with chiropract or and now on monthly checkins Obesity [id number] E66.9 weight gain has been ongoing.fabricio larios some medication s regularlyd isucssed in detail about diet and physical activitydi scussed metfomrin and ozempic kind of medication s with the patient Chronic insomnia 0973456 04 F51.04 on trazodone 150 mg dailyalso on mirtazapin e Chronic pain syndrome 37 7158588 G89.4 On Percocet annd OxyContinI ntermitten t physical therapyOn gabapentin Seizure disorder 0639893 02 G40.909 On Keppra gabapentii n and DepaakoteL evels were good 3depa kote lowered by seizure specialist to 750 mg in am and 1000 mg in pmreferred to local neurologis t here; no one called him yet. provided the number Displaceme nt of lumbar intervertebral disc without myelopathy 68240949 M51.26 MRI 12/05 L4-L55 discc bulge inclined to the right indenting the anteriior thecaal sac aand causing miild rigght laterall receess and right neeural foramen narrrowing bilaterral ly coompressi ng the exiting nerve roots. Disc bulge meeasures about 3 mm. Diissc desiccaati on noted.L5-S S1 there is disc bullge indenting thee anteriorr thecal saac and causing mild lateral recesss and neeurofora anibal narrowing biilateraa lly comppressi ng the exiting nervve roootts. Disc bulge measuures about 4.5 mm. Disc desiccaati on noteed. MRI 11/2019: moderate disc degenerati on at L5-S1 with type I Modic discogeeni c endplate siiggnal changes. Milder disc diseaase at L4-L5.fora anibal narrowing at both L4-L5 and L5-D3Dmjqm g pain management Status post epidural injection L55/S1 11/2022 PDMP reviewed Alcohol abuse 50407690 F 10.10 Chronic alcohol abusecouns eled on abstinence naltrexone contraindi cated due to pain medicatonO n acamprosat anupam drinking but intermitte ntly Depressive disorder 3548 9007 F32.9 Chronic anxietty/d epressionO nn sertraline and DepakoteOn buspirrone per psychiatry [place] addded on risperidoo neSee psychiatri st High risk drug monitoring status 533580046 Z79.891 On multiple pain medication Lumbar radiculopathy 128 457557 M54.16 Due to disc bulge and neural foraminal stenosisSe es pain management On chronic opiate therapy Traumatic brain injury 437098407 S06.9X0S History of injury and TBI Osteoarthr itis of knee 947854594 M17.9 popping sensationw il get xray knees bilateralp ending Acquired c avus deformity of foot 52355008 M21.6X9 send referral to Dr. Mandel to see origination specialist .ordered orthopedic inserts Carpal luis carin syndrome of right wrist [id number] 15752 G56.01 possible.w rist brace ordered. but he did not use it [id number] Deandre Melchor MD [facility] [address] [place] [address] 01/04/2024 15:59:18 01/04/2024 16:47:10 Degeneration of lumbar intervertebral disc 11140091 M51.36 MRI 12/05 L4-L55 disc bulge inclined to the right indenting the anterior thecal sac and causing mild right lateral recess and right neural foramen narrowing bilaterall y compressin g the exiting nerve roots. Disc bulge measures about 3 mm. Disc dessicatio n noted.L5-S 1 there is disc bulge indenting thee anterior thecal saac and causing mild lateral recesss and neeurofora anibal narrowing bilaterall y compressin g the exiting nerve roots. Disc bulge measures about 4.5 mm. Disc dessicatio n noted.MRI 11/2019: Moderate disc degenerati on at L5-S1 with type I Modic discogeeni c endplate siiggnal changes. Milder disc disease at L4-L5.fora anibal narrowing at both L4-L5 and L5-G3Pcygh g pain management Status post epidural injection L5/S1 11/2022 interventi onal pain customs consultant finished with chiropract or and now on monthly checkins Obesity [id number] E66.9 weight gain has been ongoing.fabricio larios some medication s regularlyd isucssed in detail about diet and physical activitydi scussed metfomrin and ozempic kind of medication s with the patient Chronic insomnia 9525731 04 F51.04 on trazodone 150 mg dailyalso on mirtazapin e Chronic pain syndrome 37 0512144 G89.4 On Percocet annd OxyContinI ntermitten t physical therapyOn gabapentin Seizure disorder 4353500 02 G40.909 On Keppra gabapentii n and DepaakoteL evels were good 3depa kote lowered by seizure specialist to 750 mg in am and 1000 mg in pmreferred to local neurologis t here; no one called him yet. provided the number Displaceme nt of lumbar intervertebral disc without myelopathy 42158115 M51.26 MRI 12/05 L4-L55 discc bulge inclined to the right indenting the anteriior thecaal sac aand causing miild rigght laterall receess and right neeural foramen narrrowing bilaterral ly coompressi ng the exiting nerve roots. Disc bulge meeasures about 3 mm. Diissc desiccaati on noted.L5-S S1 there is disc bullge indenting thee anteriorr thecal saac and causing mild lateral recesss and neeurofora anibal narrowing biilateraa lly comppressi ng the exiting nervve roootts. Disc bulge measuures about 4.5 mm. Disc desiccaati on noteed. MRI 11/2019: moderate disc degenerati on at L5-S1 with type I Modic discogeeni c endplate siiggnal changes. Milder disc diseaase at L4-L5.fora anibal narrowing at both L4-L5 and L5-W8Vsfkj g pain management Status post epidural injection L55/S1 11/2022 PDMP reviewed Alcohol abuse 26556272 F 10.10 Chronic alcohol abusecouns eled on abstinence naltrexone contraindi cated due to pain medicatonO n acamprosat anupam drinking but intermitte ntly Depressive disorder 3548 9007 F32.9 Chronic anxietty/d epressionO nn sertraline and DepakoteOn buspirrone per psychiatry [place] addded on risperidoo neSee psychiatri st High risk drug monitoring status 971015474 Z79.891 On multiple pain medication Lumbar radiculopathy 128 747374 M54.16 Due to disc bulge and neural foraminal stenosisSe es pain management On chronic opiate therapy Traumatic brain injury 202361789 S06.9X0S History of injury and TBI Osteoarthr itis of knee 898736951 M17.9 popping sensationw il get xray knees bilateralp ending Acquired c avus deformity of foot 70449573 M21.6X9 send referral to Dr. Mandel to see origination specialist .ordered orthopedic inserts Carpal luis carin syndrome of right wrist [id number] 33689 G56.01 possible.w rist brace ordered. but he did not use it Accidental fall 49222199 2 W19.XXXA 12/2023no drinking at that time. no locliekly mechanical due to loss of imbalance Laceration of skin 07929 5007 T14.8XXA on right cheeck and right hand knuckles [id number] Deandre Melchor MD [facility] [address] [place] [address] 01/18/2024 17:07:40 01/19/2024 09:46:51 Hyperuricemia 18263824 E79.0 uric acid level 10.5hx of kidney stones int eh pastwill add allopurino l 100 mg daily Mixed hyperlipidemia 267 675501 E78.2 348/54/189 /630 apparently a fasting level.2018 labs with ldl in 135dsicsus ed statin usewill start rosuvastat inwill need ot monitor liver enzymees as they are midly elevated Liver enzy mes level above reference range 703634531 R74.01 mildly elevatedch pedro luis hepatits panel, ggton depakote as well Vitamin D deficiency 347 12450 E55.9 vitmain d low at 20vit d supplement started Degenerati on of lumbar intervertebral disc 64706575 M51.36 MRI 12/05 L4-L55 disc bulge inclined to the right indenting the anterior thecal sac and causing mild right lateral recess and right neural foramen narrowing bilaterall y compressin g the exiting nerve roots. Disc bulge measures about 3 mm. Disc dessicatio n noted.L5-S 1 there is disc bulge indenting thee anterior thecal saac and causing mild lateral recesss and neeurofora anibal narrowing bilaterall y compressin g the exiting nerve roots. Disc bulge measures about 4.5 mm. Disc dessicatio n noted.MRI 11/2019: Moderate disc degenerati on at L5-S1 with type I Modic discogeeni c endplate siiggnal changes. Milder disc disease at L4-L5.fora anibal narrowing at both L4-L5 and L5-E0Kinnu g pain management Status post epidural injection L5/S1 11/2022 interventi onal pain customs consultant finished with chiropract or and now on monthly checkins Obesity 612202652 E66.9 weight gain has been ongoing.fabricio larios some medication s regularlyd isucssed in detail about diet and physical activitydi scussed metfomrin and ozempic kind of medication s with the patient Chronic insomnia 7939840 04 F51.04 on trazodone 150 mg dailyalso on mirtazapin e Chronic pain syndrome 37 8771857 G89.4 On Percocet annd OxyContinI ntermitten t physical therapyOn gabapentin Seizure disorder 0062938 02 G40.909 On Keppra gabapentii n and DepaakoteL evels were good 3depa kote lowered by seizure specialist to 750 mg in am and 1000 mg in pmreferred to local neurologis t here; no one called him yet. provided the number Displaceme nt of lumbar intervertebral disc without myelopathy 45908331 M51.26 MRI 12/05 L4-L55 discc bulge inclined to the right indenting the anteriior thecaal sac aand causing miild rigght laterall receess and right neeural foramen narrrowing bilaterral ly coompressi ng the exiting nerve roots. Disc bulge meeasures about 3 mm. Diissc desiccaati on noted.L5-S S1 there is disc bullge indenting thee anteriorr thecal saac and causing mild lateral recesss and neeurofora anibal narrowing biilateraa lly comppressi ng the exiting nervve roootts. Disc bulge measuures about 4.5 mm. Disc desiccaati on noteed. MRI 11/2019: moderate disc degenerati on at L5-S1 with type I Modic discogeeni c endplate siiggnal changes. Milder disc diseaase at L4-L5.fora anibal narrowing at both L4-L5 and L5-Z4Dyqbm g pain management Status post epidural injection L55/S1 11/2022 PDMP reviewed Alcohol abuse 43496927 F 10.10 Chronic alcohol abusecouns eled on abstinence naltrexone contraindi cated due to pain medicatonO n acamprosat anupam drinking but intermitte ntly Depressive disorder 3548 9007 F32.9 Chronic anxietty/d epressionO nn sertraline and DepakoteOn buspirrone per psychiatry [place] addded on risperidoo neSee psychiatri st High risk drug monitoring status 730099571 Z79.891 On multiple pain medication Lumbar radiculopathy 128 177623 M54.16 Due to disc bulge and neural foraminal stenosisSe es pain management On chronic opiate therapy Traumatic brain injury 374957078 S06.9X0S History of injury and TBI Osteoarthr itis of knee 083099655 M17.9 popping sensationw il get xray knees bilateralp ending Acquired c avus deformity of foot 18435686 M21.6X9 send referral to Dr. 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 but he did not use it Hypercalcemia 50081023 E 83.52 mild on labs. check PTH on next lab draw [id number] Deandre Melchor MD [facility] [address] [facility] [facility] [place] [address] 02/10/2024 12:11:53 02/10/2024 13:47:21 Hyperuricemia 41335868 E79.0 uric acid level 10.5hx of kidney stones int eh pastadded allopurino l 100 mg dailyReche ck uric acid level Mixed hyperlipidemia 267 217713 E78.2 348/54/189 /630 apparently a fasting level.2018 labs with ldl in 135dsicsus ed statin usestarted rosuvastat inwill need ot monitor liver enzymees as they are midly elevated Liver enzy mes level above reference range 748424138 R74.01 mildly elevatedch pedro luis hepatits panel, ggton depakote as wellus liver ordered And Pending Hypercalcemia 94770423 E 83.52 mild on labs. check PTH on next lab draw Vitamin D deficiency 347 04348 E55.9 vitmain d low at 20vit d supplement started Degenerati on of lumbar intervertebral disc 52146960 M51.36 MRI 12/05 L4-L55 disc bulge inclined to the right indenting the anterior thecal sac and causing mild right lateral recess and right neural foramen narrowing bilaterall y compressin g the exiting nerve roots. Disc bulge measures about 3 mm. Disc dessicatio n noted.L5-S 1 there is disc bulge indenting thee anterior thecal saac and causing mild lateral recesss and neeurofora anibal narrowing bilaterall y compressin g the exiting nerve roots. Disc bulge measures about 4.5 mm. Disc dessicatio n noted.MRI 11/2019: Moderate disc degenerati on at L5-S1 with type I Modic discogeeni c endplate siiggnal changes. Milder disc disease at L4-L5.fora anibal narrowing at both L4-L5 and L5-A7Tvxje g pain management Status post epidural injection L5/S1 11/2022 interventi onal pain customs consultant finished with chiropract or and now on monthly checkins Obesity 089139439 E66.9 weight gain has been ongoing.fabricio larios some medication s regularlyd isucssed in detail about diet and physical activitydi scussed metfomrin and ozempic kind of medication s with the patient Chronic insomnia 3772251 04 F51.04 on trazodone 150 mg dailyalso on mirtazapin e Chronic pain syndrome 37 3090504 G89.4 On Percocet annd OxyContinI ntermitten t physical therapyOn gabapentin Seizure disorder 1709854 02 G40.909 On Keppra gabapentii n and DepaakoteL evels were good 3depa kote lowered by seizure specialist to 750 mg in am and 1000 mg in pmreferred to local neurologis t here; no one called him yet. provided the number Displaceme nt of lumbar intervertebral disc without myelopathy 98147705 M51.26 MRI 12/05 L4-L55 discc bulge inclined to the right indenting the anteriior thecaal sac aand causing miild rigght laterall receess and right neeural foramen narrrowing bilaterral ly coompressi ng the exiting nerve roots. Disc bulge meeasures about 3 mm. Diissc desiccaati on noted.L5-S S1 there is disc bullge indenting thee anteriorr thecal saac and causing mild lateral recesss and neeurofora anibal narrowing biilateraa lly comppressi ng the exiting nervve roootts. Disc bulge measuures about 4.5 mm. Disc desiccaati on noteed. MRI 11/2019: moderate disc degenerati on at L5-S1 with type I Modic discogeeni c endplate siiggnal changes. Milder disc diseaase at L4-L5.fora anibal narrowing at both L4-L5 and L5-H3Kgmcr g pain management Status post epidural injection L55/S1 11/2022 PDMP reviewed Alcohol abuse 53013021 F 10.10 Chronic alcohol abusecouns eled on abstinence naltrexone contraindi cated due to pain medicatonO n acamprosat anupam drinking but intermitte ntly Depressive disorder 3548 9007 F32.9 Chronic anxietty/d epressionO nn sertraline and DepakoteOn buspirrone per psychiatry [place] addded on risperidoo neSee psychiatri st High risk drug monitoring status 523353352 Z79.891 On multiple pain medication Lumbar radiculopathy 128 513988 M54.16 Due to disc bulge and neural foraminal stenosisSe es pain management On chronic opiate therapy Traumatic brain injury 966195194 S06.9X0S History of injury and TBI Osteoarthr itis of knee 020946699 M17.9 popping sensationw il get xray knees bilateralp ending Acquired c avus deformity of foot 08918877 M21.6X9 send referral to Dr[address] 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 but he did not use it Diarrhea 13185829 R19.7 possible IBSWe will check stool studiesImo dium when necessary for nowNo recent antibiotic useDiet change and journaling reviewed with the patient [id number] Deandre Melchor MD [facility] [address] [place] [address] 03/16/2024 12:19:40 03/20/2024 10:30:44 Diarrhea 06120328 R19.7 possible IBSstool studies did not doImodium when necessary for nowNo recent antibiotic useDiet change and journaling reviewed with the patient Hyperuricemia 63542849 E 79.0 uric acid level 10.5hx of kidney stones int eh pastadded allopurino l 100 mg dailyReche ck uric acid level Mixed hyperlipidemia 267 641827 E78.2 348/54/189 /630 apparently a fasting level.2018 labs with ldl in 135dsicsus ed statin usestarted rosuvastat inwill need to monitor liver enzymees as they are midly elevated Liver enzy mes level above reference range 027895850 R74.01 mildly elevatedch pedro luis hepatits panel, ggton depakote as wellus liver ordered And Pending Hypercalcemia 56097851 E 83.52 mild on labs. check PTH on next lab draw Vitamin D deficiency 347 84447 E55.9 vitmain d low at 20vit d supplement started Obesity 242804953 E66.9 weight gain has been ongoing.fabricio larios some medication s regularlyd isucssed in detail about diet and physical activitydi scussed metfomrin and ozempic kind of medication s with the patient Chronic insomnia 1145822 04 F51.04 on trazodone 150 mg dailyalso on mirtazapin e Chronic pain syndrome 37 2427778 G89.4 On Percocet annd OxyContinI ntermitten t physical therapyOn gabapentin Seizure disorder 9253747 02 G40.909 On Keppra gabapentii n and DepaakoteL evels were good 3depa kote lowered by seizure specialist to 750 mg in am and 1000 mg in pmreferred to local neurologis t here; no one called him yet. provided the number Displaceme nt of lumbar intervertebral disc without myelopathy 90741349 M51.26 MRI 12/05 L4-L55 discc bulge inclined to the right indenting the anteriior thecaal sac aand causing miild rigght laterall receess and right neeural foramen narrrowing bilaterral ly coompressi ng the exiting nerve roots. Disc bulge meeasures about 3 mm. Diissc desiccaati on noted.L5-S S1 there is disc bullge indenting thee anteriorr thecal saac and causing mild lateral recesss and neeurofora anibal narrowing biilateraa lly comppressi ng the exiting nervve roootts. Disc bulge measuures about 4.5 mm. Disc desiccaati on noteed. MRI 11/2019: moderate disc degenerati on at L5-S1 with type I Modic discogeeni c endplate siiggnal changes. Milder disc diseaase at L4-L5.fora anibal narrowing at both L4-L5 and L5-X6Jkkef g pain management Status post epidural injection L55/S1 11/2022 PDMP reviewed Alcohol abuse 95531306 F 10.10 Chronic alcohol abusecouns eled on abstinence naltrexone contraindi cated due to pain medicatonO n acamprosat anupam drinking but intermitte ntly Depressive disorder 3548 9007 F32.9 Chronic anxietty/d epressionO nn sertraline and DepakoteOn buspirrone per psychiatry [place] addded on risperidoo neSee psychiatri st High risk drug monitoring status 075183266 Z79.891 On multiple pain medication Lumbar radiculopathy 128 328874 M54.16 Due to disc bulge and neural foraminal stenosisSe es pain management On chronic opiate therapy Traumatic brain injury 960461515 S06.9X0S History of injury and TBI Osteoarthr itis of knee 350940548 M17.9 popping sensationw il get xray knees bilateralp ending Acquired c avus deformity of foot 54145125 M21.6X9 send referral to Dr. 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 but he did not use it [id number] Deandre Melchor MD [facility] [address] [place] [address] 04/18/2024 17:16:25 04/18/2024 17:44:07 Displacement of lumbar intervertebral disc without myelopathy 12159103 M51.26 MRI 12/05 L4-L55 discc bulge inclined to the right indenting the anteriior thecaal sac aand causing miild rigght laterall receess and right neeural foramen narrrowing bilaterral ly coompressi ng the exiting nerve roots. Disc bulge meeasures about 3 mm. Diissc desiccaati on noted.L5-S S1 there is disc bullge indenting thee anteriorr thecal saac and causing mild lateral recesss and neeurofora anibal narrowing biilateraa lly comppressi ng the exiting nervve roootts. Disc bulge measuures about 4.5 mm. Disc desiccaati on noteed. MRI 11/2019: moderate disc degenerati on at L5-S1 with type I Modic discogeeni c endplate siiggnal changes. Milder disc diseaase at L4-L5.fora anibal narrowing at both L4-L5 and L5-U3Abotd g pain management Status post epidural injection L55/S1 11/2022 PDMP reviewed Diarrhea 10769708 R19.7 possible IBSstool studies did not doImodium when necessary for nowNo recent antibiotic useDiet change and journalisi ng reviewed with the patientimp orved now Hyperuricemia 30702787 E 79.0 uric acid level 10.5hx of kidney stones int eh pastadded allopurino l 100 mg dailyReche ck uric acid level Mixed hyperlipidemia 267 838904 E78.2 348/54/189 /630 apparently a fasting level.2018 labs with ldl in 135dsicsus ed statin usestarted rosuvastat inwill need to monitor liver enzymees as they are midly elevated Liver enzy mes level above reference range 304234671 R74.01 mildly elevatedch pedro luis hepatits panel, ggton depakote as wellus liver ordered And Pending Hypercalcemia 34185148 E 83.52 mild on labs. check PTH on next lab draw Vitamin D deficiency 347 34677 E55.9 vitmain d low at 20vit d supplement started Obesity 671135679 E66.9 weight gain has been ongoing.fabricio larios some medication s regularlyd isucssed in detail about diet and physical activitydi scussed metfomrin and ozempic kind of medication s with the patient Chronic insomnia 3652758 04 F51.04 on trazodone 150 mg dailyalso on mirtazapin e Chronic pain syndrome 37 9735265 G89.4 On Percocet annd OxyContinI ntermitten t physical therapyOn gabapentin Seizure disorder 8446662 02 G40.909 On Keppra gabapentin and DepakoteLe vels were good 3depa kote lowered by seizure specialist to 750 mg in am and 1000 mg in pmreferred to local neurologis t here; no one called him yet. provided the number Alcohol abuse 34014844 F 10.10 Chronic alcohol abusecouns eled on abstinence naltrexone contraindi cated due to pain medicatonO n acamprosat anupam drinking but intermitte ntlylast drink: unsure when? Depressive disorder 3548 9007 F32.9 Chronic anxiety/de pressionOn n sertraline and DepakoteOn buspirone per psychiatry also added on risperidon eSee psychiatri st High risk drug monitoring status 461350050 Z79.891 On multiple pain medication Lumbar radiculopathy 128 352874 M54.16 Due to disc bulge and neural foraminal stenosisSe es pain management On chronic opiate therapy Traumatic brain injury 715537126 S06.9X0S History of injury and TBI Osteoarthr itis of knee 338479201 M17.9 popping sensationw il get xray knees bilateralp ending Acquired c avus deformity of foot 69352682 M21.6X9 send referral to Dr. 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 but he did not use it [id number] Deandre Melchor MD [facility] [address] [place] [address] 05/18/2024 14:00:02 05/18/2024 14:40:23 Displacement of lumbar intervertebral disc without myelopathy 87486156 M51.26 MRI 12/05 L4-L55 discc bulge inclined to the right indenting the anteriior thecaal sac aand causing miild rigght laterall receess and right neeural foramen narrrowing bilaterral ly coompressi ng the exiting nerve roots. Disc bulge meeasures about 3 mm. Diissc desiccaati on noted.L5-S S1 there is disc bullge indenting thee anteriorr thecal saac and causing mild lateral recesss and neeurofora anibal narrowing biilateraa lly comppressi ng the exiting nervve roootts. Disc bulge measuures about 4.5 mm. Disc desiccaati on noteed. MRI 11/2019: moderate disc degenerati on at L5-S1 with type I Modic discogeeni c endplate siiggnal changes. Milder disc diseaase at L4-L5.fora anibal narrowing at both L4-L5 and L5-Z7Fswfn g pain management Status post epidural injection L55/S1 11/2022 PDMP reviewed Diarrhea 53569570 R19.7 possible IBSstool studies did not doImodium when necessary for nowNo recent antibiotic useDiet change and journalisi ng reviewed with the patientimp roved now Hyperuricemia 98019073 E 79.0 uric acid level 10.5hx of kidney stones int eh pastadded allopurino l 100 mg dailyReche ck uric acid level Mixed hyperlipidemia 267 120676 E78.2 348/54/189 /630 apparently a fasting level.2018 labs with ldl in 135dsicsus ed statin usestarted rosuvastat inwill need to monitor liver enzymees as they are midly elevated Liver enzy mes level above reference range 852755483 R74.01 mildly elevatedch pedro luis hepatits panel, ggton depakote as wellus liver ordered And Pending Hypercalcemia 47247399 E 83.52 mild on labs. check PTH on next lab draw Vitamin D deficiency 347 25972 E55.9 vitmain d low at 20vit d supplement started Obesity 737540475 E66.9 weight gain has been ongoing.fabricio larios some medication s regularlyd iscussed in detail about diet and physical activitydi scussed metformin and ozempic kind of medication s with the patient Chronic insomnia 4823221 04 F51.04 on trazodone 150 mg dailyalso on mirtazapin e Chronic pain syndrome 37 7719960 G89.4 On Percocet annd OxyContinI ntermitten t physical therapyOn gabapentin Seizure disorder 5348022 02 G40.909 On Keppra gabapentin and DepakoteLe vels were good 3depa kote lowered by seizure specialist to 750 mg in am and 1000 mg in pmreferred to local neurologis t here; no one called him yet. provided the number Alcohol abuse 19015027 F 10.10 Chronic alcohol abusecouns eled on abstinence naltrexone contraindi cated due to pain medicatonO n acamprosat anupam drinking but intermitte ntlylast drink: unsure when?refil l accamprosa te Depressive disorder 3548 9007 F32.9 Chronic anxiety/de pressionOn n sertraline and DepakoteOn buspirone per psychiatry also added on risperidon eSee psychiatri st High risk drug monitoring status 806814073 Z79.891 On multiple pain medication Lumbar radiculopathy 128 099680 M54.16 Due to disc bulge and neural foraminal stenosisSe es pain management On chronic opiate therapy Traumatic brain injury 414536464 S06.9X0S History of injury and TBI 2016 Osteoarthr itis of knee 245430901 M17.9 popping sensationw il get xray knees bilateralp ending Acquired c avus deformity of foot 15593929 M21.6X9 send referral to Dr. Mandel to see origination specialist .ordered orthopedic inserts Carpal luis carin syndrome of right wrist [id number] 21715 G56.01 possible.w rist brace ordered. but he did not use it Degenerati on of lumbar intervertebral disc 42132355 M51.369 on flexeril prn [id number] Deandre Melchor MD [facility] [address] [place] [address] 06/19/2024 16:56:13 06/19/2024 17:20:42 Displacement of lumbar intervertebral disc without myelopathy 51317658 M51.26 MRI 12/05 L4-L55 discc bulge inclined to the right indenting the anteriior thecaal sac aand causing miild rigght laterall receess and right neeural foramen narrrowing bilaterral ly coompressi ng the exiting nerve roots. Disc bulge meeasures about 3 mm. Diissc desiccaati on noted.L5-S S1 there is disc bullge indenting thee anteriorr thecal saac and causing mild lateral recesss and neeurofora anibal narrowing biilateraa lly comppressi ng the exiting nervve roootts. Disc bulge measuures about 4.5 mm. Disc desiccaati on noteed. MRI 11/2019: moderate disc degenerati on at L5-S1 with type I Modic discogeeni c endplate siiggnal changes. Milder disc diseaase at L4-L5.fora anibal narrowing at both L4-L5 and L5-P6Afbpb g pain management Status post epidural injection L55/S1 11/2022 PDMP reviewed Hyperuricemia 06854728 E 79.0 uric acid level 10.5hx of kidney stones int eh pastadded allopurino l 100 mg dailyReche ck uric acid level Mixed hyperlipidemia 267 603436 E78.2 348/54/189 /630 apparently a fasting level.2018 labs with ldl in 135dsicsus ed statin usestarted rosuvastat inwill need to monitor liver enzymees as they are midly elevated Diarrhea 61120124 R19.7 possible IBSstool studies did not doImodium when necessary for nowNo recent antibiotic useDiet change and journalisi ng reviewed with the patientimp roved now Liver enzy mes level above reference range 643204634 R74.01 mildly elevatedch pedro luis hepatits panel, ggton depakote as wellus liver ordered And Pending Hypercalcemia 08646815 E 83.52 mild on labs. check PTH on next lab draw Vitamin D deficiency 347 31824 E55.9 vitmain d low at 20vit d supplement started Obesity 697309792 E66.9 weight gain has been ongoing.fabricio larios some medication s regularlyd iscussed in detail about diet and physical activitydi scussed metformin and ozempic kind of medication s with the patient Chronic insomnia 7859656 04 F51.04 on trazodone 150 mg dailyalso on mirtazapin e Chronic pain syndrome 37 1696786 G89.4 On Percocet annd OxyContinI ntermitten t physical therapyOn gabapentin Seizure disorder 7786790 02 G40.909 On Keppra gabapentin and DepakoteLe vels were good 3depa kote lowered by seizure specialist to 750 mg in am and 1000 mg in pmreferred to local neurologis t here; no one called him yet. provided the number Alcohol abuse 75120319 F 10.10 Chronic alcohol abusecouns eled on abstinence naltrexone contraindi cated due to pain medicatonO n acamprosat anupam drinking but intermitte ntlylast drink: unsure when?refil l accamprosa te Depressive disorder 3548 9007 F32.9 Chronic anxiety/de pressionOn n sertraline and DepakoteOn buspirone per psychiatry also added on risperidon eSee psychiatri st High risk drug monitoring status 215192701 Z79.891 On multiple pain medication Lumbar radiculopathy 128 596082 M54.16 Due to disc bulge and neural foraminal stenosisSe es pain management On chronic opiate therapy Traumatic brain injury 306837957 S06.9X0S History of injury and TBI 2016 Osteoarthr itis of knee 007569904 M17.9 popping sensationw il get xray knees bilateralp ending Acquired c avus deformity of foot 52279051 M21.6X9 send referral to Dr. 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 but he did not use it Degenerati on of lumbar intervertebral disc 71306197 M51.369 on flexeril prn [id number] eDandre Melchor MD [facility] [address] [place] [address] 07/17/2024 17:43:54 07/17/2024 22:33:56 Displacement of lumbar intervertebral disc without myelopathy 78778794 M51.26 MRI 12/05 L4-L55 discc bulge inclined to the right indenting the anteriior thecaal sac aand causing miild rigght laterall receess and right neeural foramen narrrowing bilaterral ly coompressi ng the exiting nerve roots. Disc bulge meeasures about 3 mm. Diissc desiccaati on noted.L5-S S1 there is disc bullge indenting thee anteriorr thecal saac and causing mild lateral recesss and neeurofora anibal narrowing biilateraa lly comppressi ng the exiting nervve roootts. Disc bulge measuures about 4.5 mm. Disc desiccaati on noteed. MRI 11/2019: moderate disc degenerati on at L5-S1 with type I Modic discogeeni c endplate siiggnal changes. Milder disc diseaase at L4-L5.fora anibal narrowing at both L4-L5 and L5-X6Lpvos g pain management Status post epidural injection L55/S1 11/2022 PDMP reviewed Hyperuricemia 65716415 E 79.0 uric acid level 10.5hx of kidney stones int eh pastadded allopurino l 100 mg dailyReche ck uric acid level Mixed hyperlipidemia 267 147067 E78.2 348/54/189 /630 apparently a fasting level.2018 labs with ldl in 135dsicsus ed statin usestarted rosuvastat inwill need to monitor liver enzymees as they are midly elevated Diarrhea 73138388 R19.7 possible IBSstool studies did not doImodium when necessary for nowNo recent antibiotic useDiet change and journalisi ng reviewed with the patientimp roved now Liver enzy mes level above reference range 126398789 R74.01 mildly elevatedch pedro luis hepatits panel, ggton depakote as wellus liver ordered And Pending Hypercalcemia 22627499 E 83.52 mild on labs. check PTH on next lab draw Vitamin D deficiency 347 35398 E55.9 vitmain d low at 20vit d supplement started Obesity 484128392 E66.9 weight gain has been ongoing.fabricio larios some medication s regularlyd iscussed in detail about diet and physical activitydi scussed metformin and ozempic kind of medication s with the patient Chronic insomnia 7597240 04 F51.04 on trazodone 150 mg dailyalso on mirtazapin e Chronic pain syndrome 37 9824748 G89.4 On Percocet annd OxyContinI ntermitten t physical therapyOn gabapentin Seizure disorder 2567999 02 G40.909 On Keppra gabapentin and DepakoteLe vels were good 3depa kote lowered by seizure specialist to 750 mg in am and 1000 mg in pmreferred to local neurologis t here; no one called him yet. provided the number Alcohol abuse 66369925 F 10.10 Chronic alcohol abusecouns eled on abstinence naltrexone contraindi cated due to pain medicatonO n acamprosat anupam drinking but intermitte ntlylast drink: unsure when?refil l accamprosa te Depressive disorder 3548 9007 F32.9 Chronic anxiety/de pressionOn n sertraline and DepakoteOn buspirone per psychiatry also added on risperidon eSee psychiatri st High risk drug monitoring status 698969564 Z79.891 On multiple pain medication Lumbar radiculopathy 128 131609 M54.16 Due to disc bulge and neural foraminal stenosisSe es pain management On chronic opiate therapy Traumatic brain injury 557379763 S06.9X0S History of injury and TBI 2016 Osteoarthr itis of knee 833728803 M17.9 popping sensationw il get xray knees bilateralp ending Acquired c avus deformity of foot 22209625 M21.6X9 send referral to Dr. 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 but he did not use it Degenerati on of lumbar intervertebral disc 65354012 M51.369 on flexeril prn Health Concerns Section Related Observation LastModified by Organization Detai ls LastModified Time None Recorded Concern Status LastModified by Organization Details LastModified Time None Recorded Advance Directives Directive None Recorded Payers Encounter Date Sequence Insurance Name Policy Number Policy Torres Covered Member ID Torres Member ID Guarantor Name 03/16/2024 2 [place] [employer] Barrera Ely [id number] Barrera Ely 03/16/2024 1 [place] Barrera Ely [id number] Barrera C [place] 04/18/2024 2 [place] Barrera C Solis [id number] Barrera C Solis 04/18/2024 1 [place] Bar[place] C [place] [id number] Barrera C [place] 05/18/2024 2 [place] Barrera C [place] [id number] Barrera C [place] 05/18/2024 1 [place] Bar[place] C [place] [id number] Barrera C Solis 06/19/2024 2 [place] Barrera C Solis [id number] Barrera C Solis 06/19/2024 1 [place] Barrera C Solis [id number] Barrera C [place] 07/17/2024 2 [place] Barrera C Solis [id number] Barrera C Solis 07/17/2024 1 [place] Barrera C [place] [id number] Barrera C Solis Notes Date Note Type Note Provider Name and Address Organization Details Recorded Time 03/16/2024 text/html TELEVISIT TEMPLATEReported bypatient.Notes:I performed this visit using real-time telehealth tools, including a (telephone or live video) connection between my location and thepatient's location.Prior to initiating the services, I obtained the patient's informed verbal consent to perform this visit using the telehealth tools and answered all thequestions the patient had about the telehealth interaction.Originatin g Site (patient's location): [facility] (provider's location): [facility] Exam information for clinical team: Physical exam, if recorded, is based on patientreported information or obtained through peripheral.Total time spent on medical discussion: 25 minutes the patient is here for monthly visit. he states his diarrhea has improved. The ED did not get his stool studies done. No new change from last visit. He is due for his med refill. Deandre Melchor MD [address] [place], [address], [facility] 03/16/2024 16:17:56 04/18/2024 text/html TELEVISIT TEMPLATEReported bypatient.Notes:I performed this visit using real-time telehealth tools, including a (telephone or live video) connection between my location and thepatient's location.Prior to initiating the services, I obtained the patient's informed verbal consent to perform this visit using the telehealth tools and answered all thequestions the patient had about the telehealth interaction.Originatin g Site (patient's location): [facility] Site (provider's location): [facility] Exam information for clinical team: Physical exam, if recorded, is based on patientreported information or obtained through peripheral.Total time spent on medical discussion: 25 minutes the patient is here for monthly visit. he reports that his dog is sick. he is due for his med refill. he has not been drinking at all he states. pain control is reasonable Deandre Melchor MD [address] [facility], [place], [address], [facility] 04/18/2024 17:36:06 05/18/2024 text/html Pt here for foll ow up. Would like to change medications to 90 day supply. C/O sinus congestion in am. Clear phlegm. No chest pain, shortness of breath, nausea or vomiting. Deandre Melchor MD [address] [facility], [place], [address], [facility] 05/18/2024 14:42:24 06/19/2024 text/html TELEVISIT TEMPLATEReported bypatient.Notes:I performed this visit using real-time telehealth tools, including a (telephone or live video) connection between my location and thepatient's location.Prior to initiating the services, I obtained the patient's informed verbal consent to perform this visit using the telehealth tools and answered all thequestions the patient had about the telehealth interaction.Originatin g Site (patient's location): [facility] (provider's location): [facility] Exam information for clinical team: Physical exam, if recorded, is based on patientreported information or obtained through peripheral.Total time spent on medical discussion: 25 minutes Pt here for follow up.He is here for med refill. He is playing pool with his friends. He denies any new complaints.He has not done his labs yet. MD Josse Faria [facility] [address], [place], [address], [facility] 06/19/2024 17:18:28 07/17/2024 text/html TELEVISIT TEMPLATEReported bypatient.Notes:I performed this visit using real-time telehealth tools, including a (telephone or live video) connection between my location and thepatient's location.Prior to initiating the services, I obtained the patient's informed verbal consent to perform this visit using the telehealth tools and answered all thequestions the patient had about the telehealth interaction.Originatin g Site (patient's location): [facility] (provider's location): [facility] Exam information for clinical team: Physical exam, if recorded, is based on patientreported information or obtained through peripheral.Total time spent on medical discussion: 25 minutes Pt here for follow up. he is accompanied by his mother. no new complaints. he went to see the neurologist. no change in medications.he got some lab order from him as well. he will go [facility]. MD Josse Faria [facility] [address], [place], [address], [facility] 07/17/2024 18:17:51
--- OUTSIDE RECORDS SUMMARY | 2024-07-19 15:56 | XMS_ITS | Clinical Summary ---
Author Organization [facility] Address [address] [place] [address] Care Team Providers Care Live In Housekeeper Name Role Phone Deandre Melchor MD Primary Care Provider Deandre Melchor MD Unavailable [phone] Allergies No known active allergies Medications oxyCODONE-acetamin ophen (PERCOCET) 10-325 mg per tablet 08/11/19 22 Active OxyCONTIN 10 mg 12 hr abuse-deterrent tablet 08/11/19 22 Active mirtazapine (REMERON) 45 mg tablet 08/01/19 22 Active gabapentin (NEURONTIN) 600 mg tablet Take 600 mg by mouth 2 (two) times a day 07/10/19 22 Active busPIRone (BUSPAR) 15 mg tablet 08/06/19 22 Active folic acid (FOLVITE) 1 mg tablet Take 1,000 mcg by mouth daily 06/09/19 22 Active cholecalciferol (VITAMIN D-3) 25 mcg (1,000 unit) tablet Take 5,000 Units by mouth daily 09/24/19 20 Active vitamin B comp and C no.3 (B Complex Plus Vitamin C) 54-27-98-5-300 mg capsule 03/18/20 17 Active naproxen (NAPROSYN) 500 mg tablet Take 1 tablet (500 mg total) by mouth 2 (two) times a day as needed for pain 60 tablet 1 08/12/19 22 Active acetaminophen (TYLENOL) 500 mg tablet every 6 hours 11/06/19 17 Active omega-3 fatty acids-fish oil 300-1,000 mg capsule Take 1 capsule (1 g total) by mouth daily Active acamprosate DR (CAMPRAL) 333 mg EC tablet every 8 hours 02/28/20 19 Active salmon oiL-omega-3 fatty acids 1,000-210 mg capsule as directed Orally Active phosphatidylserine 100 mg capsule as directed Orally Active risperiDONE (RisperDAL) 0.5 mg tablet Take 1 tablet (0.5 mg total) by mouth 2 (two) times a day Active gbdvlnkp-ift-cgvzu us gluconate (Centrum) 0.6 mg iron/mL liquid as directed Orally Active ergocalciferol (DRISDOL) 8,000 unit/mL drops 50,000 IntlUnit = 6.25 mL, Soln-Oral, Oral, qMON, 31.25 mL, 0 Refill(s), Print Requisition 11/13/19 17 Active lansoprazole (PREVACID SOLUTAB) 30 mg disintegrating tablet 30 mg, 1 tab, Tab-Dis, G-TUBE, Before breakfast, 30 tab, 0 Refill(s), Print Requisition 11/13/19 17 Active methylphenidate HCl (RITALIN) 5 mg tablet 12.5 mg = 2.5 tab, Tab, Oral, BID, 150 tab, 0 Refill(s), Print Requisition 11/13/19 17 Active methylphenidate HCl (RITALIN) 10 mg tablet daily 11/06/19 17 Active cyclobenzaprine (FLEXERIL) 5 mg tablet Take 1 tablet (5 mg total) by mouth nightly at bedtime Active ibuprofen-diphenhy dramine cit 200-38 mg tablet NEEDED FOR PAIN Active docusate sodium (COLACE) 100 mg capsule 100 mg = 1 cap, Cap, Oral, BID, 60 cap, 0 Refill(s), Print Requisition 11/13/19 17 Active dicyclomine (BENTYL) 20 mg tablet daily Active cyanocobalamin, vitamin B-12, 1,000 mcg tablet extended release daily 11/06/19 17 Active cyanocobalamin (Vitamin B-12) 500 mcg tablet 1,000 mcg = 2 tab, Tab, Oral, Daily, 60 tab, 0 Refill(s), Print Requisition 11/13/19 17 Active collagenase (SANTYL) ointment 1 raegan, Ointment, TOP, Daily, 1 tube(s), 0 Refill(s), Print Requisition 11/13/19 17 Active chlorhexidine (PERIDEX) 0.12 % solution 0.018 gm, 15 mL, Liquid, Oral, BID, 900 mL, 0 Refill(s), Print Requisition 11/13/19 17 Active bacitracin 500 unit/gram ointment 1 raegan, Ointment, TOP BID, 1 tube(s), 0 Refill(s), apply to gtube twice daily, Print Requisition 11/13/19 17 Active ascorbic acid (VITAMIN C) 1,000 mg tablet 03/18/20 17 Active amantadine (SYMMETREL) syrup 50 mg/5 mL daily 11/06/19 17 Active allopurinoL (ZYLOPRIM) 100 mg tablet 01/18/20 24 Active calcium carb-vitamin D3-vit K2 600 mg-1,000 unit-90 mcg tablet 1 capsule daily Act susan multivitamin-iron- folic acid (Daily Multivitamin with Iron) 18-400 mg-mcg tablet Take 1 tablet by mouth daily Active rosuvastatin (CRESTOR) 20 mg tablet 01/18/20 24 Active sertraline (ZOLOFT) 100 mg tablet Take 1 tablet (100 mg total) by mouth 11/26/19 22 Active traZODone (DESYREL) 50 mg tablet Take 1 tablet (50 mg total) by mouth 3 (three) times a day 11/06/[address] (CAMPRAL) 333 mg EC tablet Take 1 tablet (333 mg total) by mouth 3 (three) times a day Active busPIRone (BUSPAR) 30 mg tablet Take 1 tablet (30 mg total) by mouth 2 (two) times a day Active folic acid (FOLVITE) 1 mg tablet Take 1 tablet (1 mg total) by mouth daily 11/06/19 17 Active mirtazapine (REMERON) 45 mg tablet Take 1 tablet (45 mg total) by mouth nightly 06/18/19 21 Active mirtazapine (REMERON VERITO-TAB) [address] 1 TABLET ON THE TONGUE AND ALLOW TO DISSOLVE DAILY AT BEDTIME 01/03/20 24 Active oxyCODONE (ROXICODONE) 5 mg immediate release tablet 5 mg = 1 tab, Tab, Oral, q12hr PRN, 24 tab, 0 Refill(s), Pain, Print Requisition 11/13/19 17 Active levETIRAcetam (KEPPRA) 1,000 mg tablet Take 1 tablet (1,000 mg total) by mouth 2 (two) times a day 180 tablet 3 07/18/[address] (DEPAKOTE) 500 mg EC tablet Take 1 tablet (500 mg total) by mouth 2 (two) times a day 180 tablet 3 07/18/[address] (DEPAKOTE) 500 mg EC tablet Take 1 tablet (500 mg total) by mouth 2 (two) times a day 180 tablet 3 01/19/20 24 025 Discontin ued(Reord er) levETIRAcetam (KEPPRA) 1,000 mg tablet Take 1 tablet (1,000 mg total) by mouth 2 (two) times a day 180 tablet 3 01/19/20 24 025 Discontin ued(Reord er) Active Problems Problem Noted Date Diagnosed Date 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/11/2021 Myalgia 08/11/2021 Disc degeneration, lumbar 08/11/2021 Traumatic brain injury 08/11/2021 History of traumatic brain injury 08/11/2021 Encounters Date Type Department Care Team Description 07/17/2024 3:00 PM SORT LINE Office Visit [facility] Neurology [address] [place] [phone] Sarmad Correa Si, MD Complex partial epilepsy (HCC) (Primary Dx); Subdural hematoma (HCC) from Last 3 Months Social History Tobacco Use Types Packs/Day Years Used Date Smoking Tobacco: Former Tobacco Cessation:Counseling Given: Not Answered Sex and Gender Information Value Date Recorded Sex Assigned at Not on file Legal Sex Male 4:30 AM CDT Gender Identity Not on file Sexual Orientation Not on file Obstetrics History Last Filed Vital Signs Vital Sign Reading Time Taken Comments Blood Pressure 132/92 07/17/2024 2:53 PM SORT LINE Pulse 98 07/17/2024 2:53 PM SORT LINE Temperature - - Respiratory Rate - - Oxygen Saturation 96% 08/11/2021 1:53 PM CDT Inhaled Oxygen Concentration - - Weight 104.3 kg (230 lb) 07/17/2024 2:53 PM SORT LINE Height 186.7 cm (6' 1.5 ) 07/17/2024 2:53 PM SORT LINE Body Mass Index 29.93 07/17/2024 2:53 PM SORT LINE Plan of Treatment Health Maintenance Due Date Last Done Comments Depression Screening 1981 Varicella Vaccines (1 of 2 - 13+ 2-dose series) 1994 Hepatitis B Screening 12/14/1999 Regular Well Visit/Exam 18-64 12/14/1999 Pneumococcal vaccine <65 (1 of 2 - PCV) 2000 Covid-19 Vaccine (4 - 2023-2 5 season) 2024 04/19/2021, 09/18/2020, 08/28/2020 Influenza Vaccine (#1) 2024 02/23/2014 DTaP/Tdap/Td Vaccine (3 - Td or Tdap) 07/09/2029 07/09/2019, 12/04/2018 Hepatitis C Screening Completed 08/20/2016 HPV Vaccines Aged Out No longer eligi ble based on patient's age to complete this topic Procedures Procedure Name Priority Date/Time Associated Diagnosis Comments HEPATITIS PANEL, ACUTE Routine 08/20/2016 5:28 AM CDT from Last 3 Months or Most Recently Relevant to Health Maintenance Results * Hepatitis panel, acute (08/20/2016 5:28 AM CDT) Hep A IgM Negative Negative [facility] ([facility]) Hep B core IgM Negative Negative [facility] ([facility]) Hep C Ab Negative Negative [facility] ([facility]) HepBsAg Negative Negative [facility] (MAR[facility]) Blood specimen (specimen) 08/20/2016 5:28 AM CDT 08/20/2016 11:54 AM CDT us Zenobia Aldana NP LAB MICROBIOLOGY - GENERAL ORDERABLES Final Result [facility] (MARI) 1 [facility] Department [place] [address] from Last 3 Months or Most Recently Relevant to Health Maintenance Insurance MEDICARE IDPA MEDICARE Advance Directives For more information, please contact: [phone] Documents on File Type Date Recorded Patient Third Hand Expl anation ADVANCE DIRECTIVE 12/12/2019 12:00 AM ROXANNE R OF FLAKING ROLL OPERATOR FINANCIAL/MEDICAL Care Teams Live In Housekeeper Relationship Specialty Start Date End Date Deandre Melchor MD [address] [facility] [address] [place] [address] PCP - General 11/29/19 Deandre Melchor MD [address] [facility] [address] [place] [address] Internal Medicine 11/29/19
--- OUTSIDE RECORDS SUMMARY | 2024-07-19 15:56 | XMS_ITS | Patient Health Record ---
Author Organization [facility] Address [address] [place] [address] Care Team Providers Care Estate Planning Attorney Name Role Phone Georgette Carter Primary Care Provider [phone] Reason For Referral No Information Medications Medication SIG (Take, Route, Frequency, Duration) Notes Start Date End Date Status Gabapentin 300 MG 1 capsule Orally thr ee times a day Active Dicyclomine HCl 20 MG 1 tablet Orally on ce a day Active Campral 333 MG 2 tablets Orally Thr ee times a day for 30 day(s) 02/27/2019 Active Sertraline HCl 100 MG 1.5 tablets Orally Once a day Active Centrum - as directed Orally A ctive Vitamin D-3 1000 UNIT 1 capsule Orally O nce a day for 30 day(s) Active Kittrell Oil - as directed Orally Active Phosphatidylserine 100 MG as directed Orally Active oxyCODONE-Acetaminophen 7.5-325 MG 1 tablet as needed Orally every 6 hrs Active levETIRAcetam 1000 MG 1.5 Orally Twice a day Active Social History Tobacco Use: Social History Observation Description Date Details (start date - stop date) Current Smoker NA - NA Dont use, Tobacco Use/Smoking Question Answer Notes Are you a current smoker How often do you smoke cigarettes? every day How many cigarettes a day do you smoke? 6-10 How soon after you wake up d o you smoke your first cigarette? 6-30 minutes Are you interested in quitting? Thinking about q uitting PRAPARE Question Answer Notes Date Completed/Updated: 02/22/2019 What is your current housing situation? I have h ousing Are you worried about losing your housing? No What is the highest level of school that you have finished? More than high school What is your current work situation? Oth erwise unemployed but not seeking work (ex. 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 Check all that apply Medicine or any health care (medical, dental, mental health or vision),Phone Has lack of transportation k ept you from medical appointments, meetings, work or from getting things needed for daily living? No How often do you see or talk to people that you care about and feel close to? (For example: talking to friends on the phone, visiting friends or family, going to yazdanism or club meetings) More than 5 times a week How stressed are you? Stress is when someone feels tense, nervous, anxious, or can\t sleep at night because their mind is troubled Quite a bit In the past year have you sp ent more than 2 nights in a row in a fdc, fci, senior living center, or juvenile correctional facility? No Are you a refugee? No What country are you from? [place] Do you feel physically and e motionally safe where you currently live? Yes In the past year, have you b een afraid of your partner or ex-partner? No PRAPARE Score: 7 Section Notes: Problems Problem Type SNOMED Code ICD Code Onset Dates Problem Status W/U Status Risk Notes Problem 73294294 Tobacco dependence (F17.200) Active confirmed Problem Disorder caused by alcohol (disorder) (269316333) Alcohol use disorder (F10.99) Active confirmed Plan Of Treatment No Information Insurance Providers Payer Name Payer Address Payer Phone Subscriber Number Group Number Insured Name Patient Relationship to Insured Coverage Start Date Coverage End Date [employer] [address] [place] [address] [id number] Barrera Ely Self - patient is the insured 9 [employer] [address] [place] [address] [id number] Barrera Ely Self - patient is the insured 9 [employer] [facility] [address] [place] [address] [id number] Solis Barrera Self - patient is the insured 9 Medical (General) History Medical History History ICD Code Alcohol use disorder TBI Seizure disorder Surgical History Surgery Date(Month/Year) brain surgery 2016 replace skull flap 2016 Hospitalization History Reason Date(Month/Year) fell down flight of steps Brain rehab detox
--- OUTSIDE RECORDS SUMMARY | 2024-07-19 15:56 | XMS_ITS | Encounter Summary ---
Author Organization [facility] Address [address] [place] [address] Care Team Providers Care Shadowgraph Scale Operator Name Role Phone Deandre Melchor MD Primary Care Provider Reason for Visit * Reason Onset Date Comments MEDICATION REFILL 02/21/2023 Encounter Details Date Type Department Care Team (Late st Contact Info) Description 02/21/2023 Refill [facility] - Neurology [address] [place] [address], [place] [phone] Lencho Torres, PHARMACY PICKING TECH-LONGWALL HEADGATE OPERATOR [address] [place] [id number] MEDICATION REFILL Social History Tobacco Use Types Packs/Day Years Used Date Smoking Tobacco: Every Day Cigarettes Smokeless Tobacco: Never Alcohol Use Standard Drinks/Week Comments Not Currently 0 (1 standard drink = 0.6 oz pur e alcohol) Sex and Gender Information Value Date Recorded Sex Assigned at Not on file Gender Identity Not on file Sexual Orientation Not on file documented as of this encounter Functional Status Functional Status Response Date of Assess ment Is person deaf or have serious hearing difficult y? No 09/20/2019 Is person blind or have serious difficulty seein g? No 09/20/2019 Does person have serious dif ficulty walking/climbing stairs? No 09/20/2019 Does person have difficulty dressing/bathing? No 09/20/2019 Does person have difficulty doing errands alone? No 09/20/2019 Cognitive Status Response Date of Assessm ent Does person have difficulty concentrating/remembering/making decisions? No 09/20/2019 documented as of this encounter Plan of Treatment Not on file documented as of this encounter Visit Diagnoses Diagnosis Seizures (HCC) Other convulsions documented in this encounter Care Teams Shadowgraph Scale Operator Relationship Specialty Start Date End Date Deandre Melchor MD [address] [place] [phone] PCP - General 07/04/19 documented as of this encounter
--- OUTSIDE RECORDS SUMMARY | 2024-07-19 15:56 | XMS_ITS | Referral Summary ---
Author Organization [facility] Address [address] [place] [address] Care Team Providers Care Ore Sampler Name Role Phone Deandre Melchor MD Primary Care Provider Deandre Melchor MD Unavailable [phone] Encounters Date Type Department Care Team Description 07/17/2024 3:00 PM SERGEANT AT ARMS Office Visit [facility] Neurology [address] [place] [address] [place] [phone] Sarmad Correa Si, MD Complex partial epilepsy (HCC) (Primary Dx); Subdural hematoma (HCC) from Last 3 Months Allergies No known active allergies Medications oxyCODONE-acetamin [...] C no.3 (B Complex Plus Vitamin C) 59-73-60-5-300 mg capsule 03/18/20 17 Active naproxen (NAPROSYN) [...] mouth 2 (two) times a day Active uwrpxody-iji-iilza us gluconate (Centrum) 0.6 mg iron/mL liquid [...] 08/11/2021 History of traumatic brain injury 08/11/2021 Social History Tobacco Use Types Packs/Day Years Used Date Smoking Tobacco: Former Tobacco Cessation:Counseling Given: Not Answered Sex and Gender Information Value Date Recorded Sex Assigned at Not on file Legal Sex Male 4:30 AM CDT Gender Identity Not on file Sexual Orientation Not on file Last Filed Vital Signs Vital Sign Reading Time Taken Comments Blood Pressure 132/92 07/17/2024 2:53 PM SERGEANT AT ARMS Pulse 98 07/17/2024 2:53 PM SERGEANT AT ARMS Temperature - - Respiratory Rate - - Oxygen Saturation 96% 08/11/2021 1:53 PM CDT Inhaled Oxygen Concentration - - Weight 104.3 kg (230 lb) 07/17/2024 2:53 PM SERGEANT AT ARMS Height 186.7 cm (6' 1.5 ) 07/17/2024 2:53 PM SERGEANT AT ARMS Body Mass Index 29.93 07/17/2024 2:53 PM SERGEANT AT ARMS Plan of Treatment Not on file Procedures Procedure Name Priority Date/Time Associated Diagnosis [...] ORDERABLES Final Result BRANDON HERNANDEZ (MARI) 1 [facility] Department [place] [address] from Last 3 Months or Most Recently Relevant to Health Maintenance Insurance MEDICARE MEDICARE IDPA [facility] [place] [address] Advance Directives For more information, please contact: [phone] Documents on File Type Date Recorded Patient Cement Fittings Maker Expl anation ADVANCE DIRECTIVE 12/12/2019 12:00 AM ROXANNE R OF CUSTOM WOOD STAIR BUILDER FINANCIAL/MEDICAL Care Teams Ore Sampler Relationship Specialty Start Date End Date Deandre Melchor MD [address] [facility] [address] [place] [address] PCP - General 11/29/19 Deandre Melchor MD [address] [facility] [address] [place] [address] Internal Medicine 11/29/19
--- OUTSIDE RECORDS SUMMARY | 2024-07-19 15:56 | XMS_ITS | Continuity of Care Document ---
Author Organization [facility] Address [address] [place] [address] Phone Care Team Providers Care Business Communications Instructor Name Role Phone Sae Palm MD Unavailable Unavailable Advance Directives Directive Yes / No Effective Date File Name No Information Encounters Encounter Description Practice Location Reason(s) For Visit Diagnoses Date Provider Providers Copied on Encounter [facility], [address], [place], [place], [id number], tel:[phone] [facility] No Information Néstor Quevedo. [address] [place] [address], [address], [place], [place], [id number], . tel:[phone] Referring Provider: Sae Palm, [address] [place] [address], [id number]. tel:[phone] Family History Family Member Type Diagnosis Age At Onset No Information Payers Payer name Insurance type Covered republican ID Authoriza tiherminio(s) [place] [facility] [id number] Social History Type Description Quantity Date Captured [...]
--- OUTSIDE RECORDS SUMMARY | 2024-07-19 15:56 | XMS_ITS | Encounter Summary ---
Author Organization [facility] Address [address] [place] [address] Care Team Providers Care Feed Inspection Supervisor Name Role Phone Deandre Melchor MD Primary Care Provider Reason for Visit * Reason Onset Date Comments MEDICATION REFILL 09/22/2022 Encounter Details Date Type Department Care Team (Late st Contact Info) Description 09/22/2022 Refill [facility] [address] [facility], [facility] [place] [phone] Lencho Torres, MAIL FORWARDING SYSTEM MARKUP CLERK-CHARGING OPERATOR [address] [place] [address] MEDICATION REFILL Social History Tobacco Use Types [...] No 09/20/2019 documented as of this encounter Miscellaneous Notes * Telephone Encounter - Yocasta Epps - 09/22/2022 4:39 PM CDT Refill Request Barrera Ely REYMUNDO: 12/17/2021 NOV due: 12/17/2022 NOV scheduled: 12/17/2022 LRF: 08/23/2022 Qty Disp: 240 tablet # of refills: 5 Allergies: No Known Allergies Pended Medication Order: Requested Prescriptions Pending Prescriptions Disp Refills ??? divalproex DR (Depakote) 250 MG tablet 240 tablet 5 documented in this encounter Plan of Treatment Not on file documented as of this encounter Visit Diagnoses Diagnosis Seizures (HCC) Other convulsions documented in this encounter Care Teams Feed Inspection Supervisor Relationship Specialty Start Date End Date Deandre Melchor MD [facility] [place] [address] PCP - General 07/04/19 documented as of this encounter
--- OUTSIDE RECORDS SUMMARY | 2024-07-19 15:57 | XMS_ITS | Patient Health Summary ---
Author Organization [facility] Address [address] [place] [address] Care Team Providers Care Dock Operator Name Role Phone Deandre Melchor MD Primary Care Provider Note from [facility],non-owned Affiliates and Associated Physician Practices is amultiple site organization consisting of ambulatory clinics and hospital sitesin [place], [place], [place] and [place]. This disclosure is being madepursuant to the Care Everywhere program and may not contain all information available regarding this patient. Last updated 18.[facility] Allergies No known active allergies Medications * Be aware that medications may not be up to date on this document. Alwaysverify current medications with the patient. * vitamin D3 (CHOLECALCIFEROL) 25 MCG (1000 UNITS) tablet(Started 09/24/2019) Take 5 tablets by mouth once daily Reasons: Supplement 1 refill by 09/23/2020 * oxyCODONE-acetaminophen (PERCOCET) 10-325 MG tablet Take 2 (two) tablets by mouth every 12 hours as needed * Udall-3 Fatty Acids (FISH OIL) 1000 MG capsule Take 1 capsule by mouth once daily * mirtazapine (REMERON) 45 MG tablet(Started 06/18/2020) Take 1 (one) tablet by mouth at bedtime 4 refills by 06/18/2021 * folic acid (FOLVITE) 1 MG tablet(Started 07/17/2020) Take 1 (one) tablet by mouth once daily Reasons: Anemia From Inadequate Folic Acid 11 refills by 07/17/2021 * busPIRone (BUSPAR) 15 MG tablet(Started 12/29/2020) TAKE 1 (ONE) TABLET BY MOUTH 2 TIMES DAILY * sertraline (Zoloft) 100 MG tablet(Started 11/25/2021) Take 1 (one) tablet by mouth * multivitamin daily tablet Take 1 (one) tablet by mouth daily with food * traZODone (Desyrel) 50 MG tablet Take 1 (one) tablet by mouth 3 times daily * oxyCODONE CR 12hr (OxyCONTIN) 10 MG tablet Take 1 (one) tablet by mouth every 12 hours * acamprosate calcium EC (Campral) 333 MG tablet Take 1 (one) tablet by mouth 3 times daily * cyclobenzaprine (Flexeril) 5 MG tablet Take 1 (one) tablet by mouth 3 times daily as needed * risperiDONE (RisperDAL) 0.5 MG tablet Take 1 (one) tablet by mouth 2 times daily * gabapentin (Neurontin) 600 MG tablet(Started 04/20/2023) Take 1 (one) tablet by mouth 2 times daily 11 refills by 04/19/2024 * levETIRAcetam (Keppra) 500 MG tablet(Started 04/20/2023) Take 2 (two) tablets by mouth 2 times daily 3 refills by 04/19/2024 * divalproex ER 24hr (Depakote ER) 250 MG tablet(Started 04/20/2023) Take 3 tablets in the morning and 4 tablets at night 11 refills by 04/19/2024 * B Complex Vitamins (B COMPLEX 1 PO) Active Problems Problem Noted Date Diagnosed Date Alcohol abuse 04/20/2023 04/20/2023 Bilateral sacroiliitis 04/20/2023 3 Calcium oxalate crystals present in urine 202204/20/2023 Dysphagia 04/20/2023 04/20/2023 Late effect of fracture of upper extremity 04/2004/20/2023 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 10/202204/20/2023 Lumbar radiculopathy 04/20/2023 04/20/2023 Other symptoms and signs involving emotional sta te 04/20/2023 04/20/2023 Pain in left knee 04/20/2023 04/20/2023 Pulmonary emphysema 04/20/2023 04/20/2023 Shoulder joint pain 04/20/2023 04/20/2023 Skin infection 04/20/2023 04/20/2023 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 Tobacco dependence 12/17/2021 Disc degeneration, lumbar 08/11/2021 History of traumatic brain injury 08/11/2021 Myalgia 08/11/2021 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/11/2021 Traumatic brain injury 08/11/2021 Depressive disorder 09/20/2019 Aphasia 08/08/2019 Dysarthria 08/08/2019 Difficulty controlling behav ior as late effect of traumatic brain injury 08/08/2019 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 08/08/2019 Alcohol use disorder, severe, dependence 020 Chronic prescription opiate use 08/08/2019 Chronic pain due to trauma 08/08/2019 Depression 08/08/2019 Asthma 06/06/2017 04/20/2023 History of renal calculi 06/06/2017 023 Sleep deprivation 06/06/2017 04/20/2023 Seizures Social History Tobacco Use Types Packs/Day Years Used Date Smoking Tobacco: Every Day Cigarettes Smokeless Tobacco: Never Tobacco Cessation:Ready to Q uit: Not Asked; Counseling Given: Not Answered Alcohol Use Standard Drinks/Week Comments Not Currently 0 (1 standard drink = 0.6 oz pur e alcohol) Sex and Gender Information Value Date Recorded Sex Assigned at Not on file Gender Identity Not on file Sexual Orientation Not on file Last Filed Vital Signs Vital Sign Reading Time Taken Comments Blood Pressure 128/90 08/18/2023 1:31 PM CDT Pulse 108 08/18/2023 1:31 PM CDT Temperature 36.4 C (97.5 F) 08/18/2023 1:31 PM CDT Respiratory Rate 17 09/24/2019 4:20 PM CDT Oxygen Saturation 95% 08/18/2023 1:31 PM CDT Inhaled Oxygen Concentration - - Weight 108.9 kg (240 lb) 08/18/2023 1:31 PM CDT Height 186.7 cm (6' 1.5 ) 04/20/2023 2:08 PM [employer] INTERN Body Mass Index 31.23 04/20/2023 2:08 PM [employer] Procedures * VALPROIC ACID LEVEL(Performed 08/12/2020) * CBC W AUTO DIFFERENTIAL(Performed 08/12/2020) * COMPREHENSIVE METABOLIC PANEL(Performed 08/12/2020) * T4 FREE DIRECT REFLEXED(Performed 09/20/2019) * VALPROIC ACID LEVEL(Performed 09/20/2019) * TSH REFLEX FREE T4(Performed 09/20/2019) * SYPHILIS ANTIBODY CASCADING REFLEX(Performed 09/20/2019) * LIPID PROFILE(Performed 09/20/2019) * HEMOGLOBIN A1C(Performed 09/20/2019) * URINE DRUG SCREEN IMMUNOASSAY(Performed 09/19/2019) * URINALYSIS W/MICROSCOPIC NO CULTURE(Performed 09/19/2019) * ALCOHOL ETHYL BLOOD(Performed 09/19/2019) * COMPREHENSIVE METABOLIC PANEL(Performed 09/19/2019) * CBC W AUTO DIFFERENTIAL(Performed 09/19/2019) * VITAMIN B1(Performed 08/08/2019) Performed for Cognitive deficit as late effect of traumatic brain injury (HCC), Difficulty controlling behavior as late effect of traumatic brain injury (HCC), Alcohol use disorder, severe, dependence (HCC), Depression, unspecified depression type * VITAMIN B12(Performed 08/08/2019) Performed for Cognitive deficit as late effect of traumatic brain injury (HCC), Difficulty controlling behavior as late effect of traumatic brain injury (HCC), Alcohol use disorder, severe, dependence (HCC), Depression, unspecified depression type * FOLATE(Performed 08/08/2019) Performed for Cognitive deficit as late effect of traumatic brain injury (HCC), Difficulty controlling behavior as late effect of traumatic brain injury (HCC), Alcohol use disorder, severe, dependence (HCC), Depression, unspecified depression type * COMPREHENSIVE METABOLIC PANEL(Performed 08/08/2019) Performed for Cognitive deficit as late effect of traumatic brain injury (HCC), Difficulty controlling behavior as late effect of traumatic brain injury (HCC), Alcohol use disorder, severe, dependence (HCC), Depression, unspecified depression type * CBC W AUTO DIFFERENTIAL(Performed 08/08/2019) Performed for Cognitive deficit as late effect of traumatic brain injury (HCC), Difficulty controlling behavior as late effect of traumatic brain injury (HCC), Alcohol use disorder, severe, dependence (HCC), Depression, unspecified depression type * LEVETIRACETAM LEVEL(Performed 04/26/2019) Performed for Epilepsy posttraumatic (HCC) * URINALYSIS REFLEX TO MICROSCOPIC NO CULTURE(Performed 08/22/2017) * CULTURE URINE(Performed 08/22/2017) * XR SHOULDER RIGHT 2VW OR MORE(Performed 08/22/2017) Performed for Closed displaced fracture of body of right scapula, initial encounter * COMPREHENSIVE METABOLIC PANEL(Performed 08/22/2017) * CBC W AUTO DIFFERENTIAL(Performed 08/22/2017) Results * (ABNORMAL) CBC WITH DIFFERENTIAL (08/12/2020 1:49 PM CDT) Only the most recent of4 resultswithin the time period is included. White Blood Cell Count 12.3(H) 3.8 - 10.8 Thousand/u L [facility] RBC 4.41 4.20 - 5.80 Million/uL [facility] Hemoglobin 13.9 13.2 - 17.1 g/dL [facility] Hematocrit 41.4 38.5 - 50.0 % [facility] MCV 93.9 80.0 - 100.0 fL [facility] MCH 31.5 27.0 - 33.0 pg [facility] MCHC 33.6 32.0 - 36.0 g/dL [facility] RDW 13.0 11.0 - 15.0 % [facility] Platelet Count 250 140 - 400 Thousand/u L [facility] MPV 11.3 7.5 - 12.5 fL [facility] Neutrophil Absolute 7208 1500 - 7800 cells/uL [facility] Lymphocytes Absolute 3961(H) 850 - 3900 cells/uL [facility] Absolute Monocytes 775 200 - 950 cells/uL [facility] Eosinophils Absolute 295 15 - 500 cells/uL [facility] Basophils Absolute 62 0 - 200 cells/uL [facility] Granulocytes % 58.6 % [facility] Lymphocytes % 32.2 % [facility] Monocytes % 6.3 % [facility] Eosinophils % 2.4 % [facility] Basophils % 0.5 % [facility] Comment: Test Performed at: [employer] [facility] [address] [place] [address] KARLOS NAVA DO,MPH 08/12/2020 1:49 PM CDT 08/12/2020 1:49 PM CDT Lois Perze MD LAB - HEMATOLOGY ORD ERABLES Performing Organization Address [facility] Co de Phone Number [facility] [address] [place] [address] * COMPREHENSIVE METABOLIC PANEL (08/12/2020 1:49 PM CDT) Only the most recent of4 resultswithin the time period is included. Pathologist [facility] Glucose 90 65 - 99 mg/dL [facility] Comment: Fasting reference interval BUN 13 7 - 25 mg/dL [facility] Creatinine 0.88 0.60 - 1.35 mg/dL [facility] eGFR by MDRD 109 > OR = 60 mL/min/1. 73m2 [facility] eGFR by MDRD 126 > OR = 60 mL/min/1. 73m2 [facility] BUN/Creatinine Ratio NOT APPLICABLE 6 - 22 (calc) [facility] Sodium 143 135 - 146 mmol/L [facility] Potassium 4.3 3.5 - 5.3 mmol/L [facility] Chloride 108 98 - 110 mmol/L [facility] CO2 26 20 - 32 mmol/L [facility] Calcium 9.8 8.6 - 10.3 mg/dL [facility] Protein Total 6.8 6.1 - 8.1 g/dL [facility] Albumin 4.8 3.6 - 5.1 g/dL [facility] Globulin Total 2.0 1.9 - 3.7 g/dL (calc) [facility] Albumin/Globuli n Ratio 2.4 1.0 - 2.5 (calc) [facility] Bilirubin Total 0.5 0.2 - 1.2 mg/dL [facility] Alkaline Phosphatase 43 36 - 130 U/L [facility] AST 13 10 - 40 U/L [facility] ALT 9 9 - 46 U/L [facility] Comment: Test Performed at: [facility] [address] [place] [address] KARLOS NAVA DO,MPH 08/12/2020 1:49 PM CDT 08/12/2020 1:49 PM CDT Lois Perez MD LAB - CHEMISTRY ORDYanique MARTINS Performing Organization Address [facility] de Phone Number [facility] [address] [place] [phone] * VALPROIC ACID LEVEL (08/12/2020 1:49 PM CDT) Only the most recent of2 resultswithin the time period is included. Valproic Acid 71.2 50.0 - 100.0 mg/L [facility] Comment: Test Performed at: [employer] [place] [address] [place] [address] KARLOS NAVA DO,MPH 08/12/2020 1:49 PM CDT 08/12/2020 1:49 PM CDT Lois Perez MD LAB - CHEMISTRY CHIDI MARTINS Performing Organization Address City/[facility] Co de Phone Number [facility] [address] [place] [address] * SYPHILIS ANTIBODY CASCADING REFLEX (09/20/2019 3:09 AM CDT) Pathologist [facility] Treponema pallidum Antibody Non Reactive Non Reactive 09/20/2019 3:53 AM CDT [facility] Comment: No Laboratory evidence of syphilis infection. Note: Circulating antibodies may be low or undetectable in early infection. If recent exposure is suspected, re-draw sample in 2-4 weeks and repeat testing. Blood BLOOD SPECIMEN / Unknown Venipuncture / Unknown 09/20/2019 3:09 AM CDT 09/20/2019 3:15 AM CDT Tash Cabral APRN-FINANCE CLERK LAB - SEROLOG Y ORDERABLES Performing Organization Address City/[facility]/ZIP Co de Phone Number [facility] [address] [place] [address] * T4 FREE DIRECT REFLEXED (09/20/2019 3:09 AM CDT) Pathologist [facility] T4 Free 0.99 0.70 - 1.48 ng/dL 09/20/2019 4:32 AM CDT [facility] Blood BLOOD SPECIMEN / Unknown Venipuncture / Unknown 09/20/2019 3:09 AM CDT 09/20/2019 3:15 AM CDT Tash Cabral APRN-FINANCE CLERK LAB - DISTRICT MANAGER IN TRAINING RY ORDERABLES Performing Organization Address City/[facility]/ZIP Co de Phone Number [facility] [address] [place] [address] * TSH REFLEX FREE T4 (09/20/2019 3:09 AM CDT) TSH 4.285 0.350 - 4.940 uIU/mL 09/20/2019 3:56 AM CDT [facility] Blood BLOOD SPECIMEN / Unknown Venipuncture / Unknown 09/20/2019 3:09 AM CDT 09/20/2019 3:15 AM CDT Tash Sara Cabral APRN-[facility] LAB - DISTRICT MANAGER IN TRAINING RY ORDERABLES Performing Organization Address [facility] Co de Phone Number [facility] [address] [place] [address] * HEMOGLOBIN A1C (09/20/2019 3:09 AM CDT) Hemoglobin A1c 5.5 4.2 - 5.6 % 09/20/2019 3:31 AM CDT [facility] Estimated Average Glucose 111 mg/dL 09/20/2019 3:31 AM CDT [facility] Blood BLOOD SPECIMEN / Unknown Venipuncture / Unknown 09/20/2019 3:09 AM CDT 09/20/2019 3:15 AM CDT Narrative [facility] - 09/20/2019 3:31 AM CDT The following cutoff levels are recommended by [place] [employer]. A1c > 6.5% : considered as diabetes if two separate tests >6.5% or in an appropriate clinical setting. A1c 5.7% - 6.4% : considered as prediabetes (suggest increased risk for diabetes and cardiovascular disease) Control target level: Should be individualized. < 7 for general (non-) , < 8% less stringent goal, < 6.5 more stringent goal. Hemoglobin A1c measurements are used as an aid in the diagnosis of diabetic mellitus, as an aid to identify patients who may be at the risk for developing diabetic mellitus, and for the monitoring long-term blood glucose control in individuals with diabetes mellitus. This test should not replace glucose testing for patients with Type 1 diabetes, pediatric patients, or women. Falsely low HbA1c results may be observed in patients with clinical conditions that shorten erythrocyte life span or decrease mean erythrocyte age such as the presence of unstable hemoglobin variants, elevated hemoglobin F level or other causes of hemolytic anemia . HbA1c may not accurately reflect glycemic control when clinical conditions that affect erythrocyte survival are present. Severe Iron deficiency anemia may yield falsely high results. Hemoglobin A1c assay should not be used to diagnose or monitor diabetes in patients with malignancy, recent blood transfusion, chronic kidney or liver disease. This method may yield falsely low results when hemoglobin (HbF) exceeds 5% in the specimen. Tash Cabral [facility] LAB - DISTRICT MANAGER IN TRAINING RY ORDERABLES Performing Organization Address [facility] de Phone Number [facility] [id number] [place] [phone] * (ABNORMAL) LIPID PROFILE (09/20/2019 3:09 AM CDT) [facility] Cholesterol 167 <200 mg/dL 09/20/2019 3:36 AM CDT [facility] Triglycerides 179(H) <150 mg/dL 09/20/2019 3:36 AM CDT [facility] HDL Cholesterol 40(L) >40 mg/dL 0 3:36 AM CDT [facility] LDL Calculated 91 <130 mg/dL 09/20/2019 3:36 AM CDT [facility] VLDL Calculated 36(H) <=30 mg/dL 0 3:36 AM CDT [facility] Chol HDL Ratio 4.2 <4.5 09/20/2019 3:36 AM CDT [facility] LDL/HDL Ratio 2.3 <5.0 09/20/2019 3:36 AM CDT [facility] Blood BLOOD SPECIMEN / Unknown Venipuncture / Unknown 09/20/2019 3:09 AM CDT 09/20/2019 3:15 AM CDT Tash Cabral [facility] LAB - DISTRICT MANAGER IN TRAINING RY ORDERABLES Performing Organization Address [facility] Co de Phone Number [facility] [address] [place] [address] * (ABNORMAL) URINALYSIS W/MICROSCOPIC NO CULTURE (09/19/2019 6:26 PM CDT) Color UA Yellow Straw, Yellow, Colorless 09/19/2019 6:41 PM [facility] Clarity UA Clear Clear, t Cloudy 09/19/2019 6:41 PM [facility] Specific Drake UA 1.034(H) 1.005 - 1.030 09/19/2019 6:41 PM [facility] pH UA 5.0 5.0 - 8.0 pH 09/19/2019 6:41 PM [facility] Protein UA Negative Negative mg/dL 09/19/2019 6:41 PM [facility] Glucose UA Negative Negative mg/dL 09/19/2019 6:41 PM [facility] Ketone UA Trace(A) Negative mg/dL 09/19/2019 6:41 PM [facility] Bilirubin UA Negative Negative mg/dL 09/19/2019 6:41 PM [facility] Blood UA Negative Negative 09/19/2019 6:41 PM [facility] Nitrite UA Negative Negative 09/19/2019 6:41 PM [facility] Leukocyte Esterase Negative Negative 09/19/2019 6:41 PM [facility] Urobilinogen UA Negative Negative mg/dL 09/19/2019 6:41 PM [facility] RBC UA 6-10(A) None Seen, 0-2, 3-5 /HPF 09/19/2019 6:41 PM [facility] WBC UA 0-5 None Seen, 0-5 /HPF 09/19/2019 6:41 PM [facility] Squamous Epithelial Cells UA None Seen None Seen, 0-2 /HPF 09/19/2019 6:41 PM [facility] Mucus UA 4+(A) None, 1+ /LPF 09/19/2019 6:41 PM [facility] Hyaline Casts UA 0-2 None Seen, 0-2 /LPF 09/19/2019 6:41 PM [facility] Urine URINE SPECIMEN OBTAINED BY CLEAN CATCH PROCEDURE / Unknown Collection / Unknown 09/19/2019 6:26 PM CDT 09/19/2019 6:30 PM [facility] - 09/19/2019 6:41 PM CDT Rizwan Ernst MD LAB - URINALYSIS ORD ERABLES [facility] [address] [phone] * (ABNORMAL) DRUG SCREEN TOX URINE PANEL (09/19/2019 6:26 PM CDT) [facility] Amphetamines Screen Urine Negative Negative : < 1000 ng/mL 09/19/2019 6:51 PM CDT [facility] Barbiturates Screen Urine Negative Negative : < 200 ng/mL 09/19/2019 6:51 PM [facility] Benzodiazepine Screen Urine Negative Negative : < 200 ng/mL 09/19/2019 6:51 PM T [facility] Opiates Urine Positive(A) Negative : < 300 ng/mL 09/19/2019 6:51 PM [facility] Comment:Positive urine opiat e screening results should be confirmed by another generally accepted non-immunological method such as gas chromatography or mass spectrometry. Cocaine Metabolites Urine Negative Negative : < 300 ng/mL 09/19/2019 6:51 PM [facility] Phencyclidine Screen Urine Negative Negative : < 25 ng/ml 09/19/2019 6:51 PM [facility] Cannabinoids Screen Urine Positive(A) Negative : <50 ng/mL 09/19/2019 6:51 PM T [facility] Comment:Positive urine canna binoids (THC) screening results should be confirmed by another generally accepted non-immunological method such as gas chromatography or mass spectrometry. Methadone Screen Urine Negative Negative : < 300 ng/mL 09/19/2019 6:51 PM CDT [facility] Fentanyl Screen Urine Negative Negative : <1.0 ng/mL 09/19/2019 6:51 PM [facility] Urine URINE / Unknown Collection / Unknown 09/19/2019 6:26 PM CDT 09/19/2019 6:30 PM CDT Narrative [facility] - 09/19/2019 6:51 PM CDT The Urine Toxicology Screening Panel does not screen for Propoxyphene, Meprobamate, Carisoprodol, Trazodone, [id number] medications and/or volatiles (Acetone, Isopropanol, Methanol or Ethylene Glycol). Ethanol, Salicylate, Acetaminophen, Tricyclic Antidepressants and several therapeutic drugs may be individually assayed in serum or plasma specimen. Toxicology testing by the [facility] is an aid to medical diagnosis and treatment of patients. No documented chain of custody was maintained. Results are intended to be used for clinical purposes only. Rizwan Ernst MD LAB - URINE CHEMISTR Y ORDERABLES Performing Organization Address [facility]/ZIP Co de Phone Number [address] [phone] * ALCOHOL ETHYL BLOOD (09/19/2019 5:39 PM CDT) Pathologist [facility] Interpretation Ethanol None Detected None Detected mg/dL 09/19/2019 6:08 PM CDT [facility] Comment:Ethanol levels less than 10 mg/dL are resulted as None detected . Blood BLOOD SPECIMEN / Unknown Venipuncture / Unknown 09/19/2019 5:39 PM CDT 09/19/2019 5:42 PM CDT Rizwan Ernst MD LAB - CHEMISTRY ORDE RABLES Performing Organization Address [facility] de Phone Number [address] [phone] * VITAMIN B1 (08/08/2019 4:12 PM CDT) Pathologist [facility] Vitamin B1 Whole Blood 122.8 66.5 - 200.0 nmol/L 08/11/2019 4:06 AM CDT [facility] ([facility]) Blood BLOOD SPECIMEN / Unknown Lab Venipuncture / Unknown 08/08/2019 4:12 PM CDT 08/08/2019 4:54 PM CDT Narrative [facility] ([facility]) - 08/11/2019 4:06 AM CDT Test(s) 270097-[id number]. B1, Whole Blood was developed and its performance characteristics determined by [facility]. It has not been cleared or approved by the Food and Drug Administration. Performed at: 01 - [address] [id number] [employer] Foreman: Gurpreet Hankins MD, Phone: [phone] Julian Prakash MD LAB - CHEMISTRY CHIDI MARTINS [facility] ([facility]) [address] [place] [address] * (ABNORMAL) FOLATE (08/08/2019 4:12 PM CDT) Folate 5.1(L) 7.0 - 31.4 ng/mL 08/08/2019 5:49 PM CDT [facility] Blood BLOOD SPECIMEN / Unknown Lab Venipuncture / Unknown 08/08/2019 4:12 PM CDT 08/08/2019 4:55 PM CDT Julian Prakash MD LAB - CHEMISTRY CHIDI MARTINS Performing Organization Address City/[facility]/ZIP Co de Phone Number [address] [phone] * VITAMIN B12 (08/08/2019 4:12 PM CDT) Vitamin B12 421 213 - 816 pg/mL 08/08/2019 5:49 PM CDT [facility] Blood BLOOD SPECIMEN / Unknown Lab Venipuncture / Unknown 08/08/2019 4:12 PM CDT 08/08/2019 4:55 PM CDT Julian Prakash MD LAB - CHEMISTRY CHIDI MARTINS Performing Organization Address City/[facility]/ZIP Co de Phone Number [address] [phone] * LEVETIRACETAM LEVEL (04/26/2019 11:55 AM [employer]) Levetiracetam 35.2 10.0 - 40.0 ug/mL 04/28/2019 12:08 PM [employer] INTERN [facility] ([facility]) Comment: This test was developed and its performance characteristics determined by [facility]. It has not been cleared or approved by the Food and Drug Administration. Blood BLOOD SPECIMEN / Unknown Lab Venipuncture / Unknown 04/26/2019 11:55 AM [employer] 04/26/2019 1:01 PM [employer]N Narrative [facility] ([facility]) - 04/28/2019 12:08 PM [employer]N Performed at: [address] [id number] [employer] Foreman: Gurpreet Hankins MD, Phone: [phone] Victorino Sandra MD LAB - THERAPEUTIC DR WADDELL MONITORING ORDERABLES [facility] ([facility]) [address] [place] [address], [facility] * (ABNORMAL) URINALYSIS REFLEX TO MICROSCOPIC NO CULTURE (08/22/2017 6:39 PM T) Color UA Yellow Straw, Yellow, Colorless, Light Yellow 08/22/2017 7:26 PM [facility] Clarity UA Clear Clear 08/22/2017 7:26 PM [facility] Specific Drake UA >1.040(H) 1.001 - 1.030 08/22/2017 7:26 PM [facility] Comment:refractometer pH UA 6.5 5.0 - 8.0 08/22/2017 7:26 PM [facility] Protein UA 30(A) <=20 mg/dL 08/22/2017 7:26 PM [facility] Glucose UA Negative Negative mg/dL 08/22/2017 7:26 PM [facility] Ketone UA >80(A) Negative mg/dL 08/22/2017 7:26 PM [facility] Bilirubin UA Negative Negative mg/dL 08/22/2017 7:26 PM [facility] Blood UA Negative Negative 08/22/2017 7:26 PM [facility] Nitrite UA Negative Negative 08/22/2017 7:26 PM [facility] Leukocyte Esterase Negative Negative 08/22/2017 7:26 PM [facility] Urobilinogen UA 4.0(H) <2.0 mg/dL 8 7:26 PM [facility] RBC UA 4 0 - 8 /HPF 08/22/2017 7:26 PM CDT [facility] WBC UA 2 0 - 2 /HPF 08/22/2017 7:26 PM CDT [facility] [place] [facility] Bacteria UA Rare Rare, Occasional, None /HPF 08/22/2017 7:26 PM CDT [facility] Renal Epithelial UA <1 0 - 1 /HPF 08/22/2017 7:26 PM CDT [facility] Mucus UA Many(A) None /LPF 08/22/2017 7:26 PM CDT [facility] Urine URINE SPECIMEN OBTAINED BY CLEAN CATCH PROCEDURE / Unknown Collection / Unknown 08/22/2017 6:39 PM CDT 08/22/2017 6:46 PM CDT Narrative [facility] - 08/22/2017 7:26 PM CDT Specific gravity results confirmed by refractometer. Jeremias Narayanan DO LAB - URINALYSIS ORD ERABLES Performing Organization Address City/[facility]/ZIP Co de Phone Number [facility] [address] [phone] * CULTURE URINE (08/22/2017 6:39 PM CDT) Culture Urine No growth (<1,000 CFU/mL) RUI 08/24/2017 1:52 PM CDT [facility] Urine URINE SPECIMEN OBTAINED BY CLEAN CATCH PROCEDURE / Unknown Collection / Unknown 08/22/2017 6:39 PM CDT 08/22/2017 6:47 PM CDT Jeremias Narayanan DO LAB - MICROBIOLOGY O RDERABLES [facility] [address] [phone] * XR SHOULDER RIGHT 2VW OR MORE (08/22/2017 4:44 PM CDT) Anatomical Region Laterality Modality Upper Extremity Radiographic Paloma ging 08/23/2017 7:20 AM CDT Impressions 08/23/2017 7:45 AM CDT FINDINGS/IMPRESSION: Comparison is made with an outside facility chest CT from 08/22/2017 at 7:51 AM. There is a fracture at the inferior and medial aspect of the scapular body, although this is better demonstrated on the prior chest CT. The glenohumeral and acromioclavicular joints are in anatomic alignment. There are several right rib deformities which appear chronic. This report was dictated by Dudley Chapman M.D. (resident). Dr. ARRON Carroll MD have personally reviewed and interpreted this examination/study. This report was electronically signed by ARRON HAYNES MD on 08/23/2017 7:45 AM . Narrative 08/23/2017 7:45 AM CDT EXAMINATION: XR SHOULDER RIGHT 2VW OR MORE HISTORY: S42.111A: Closed displaced fracture of body of right scapula, initial encounter Procedure Note Arron Haynes MD - 08/23/2017 EXAMINATION: XR SHOULDER RIGHT 2VW OR MORE HISTORY: S42.111A: Closed displaced fracture of body of right scapula, initial encounter FINDINGS/IMPRESSION: Comparison is made with an outside facility chestCT from 08/22/2017 at 7:51 AM. There is a fracture at the inferior and medial aspect of the scapular body, although this is better demonstrated on the prior chest CT. The glenohumeral and acromioclavicular joints are in anatomic alignment.There are several right rib deformities which appear chronic. This report was dictated by Dudley Chapman M.D. (resident). Dr. ARRON Carroll MD have personally reviewed and interpreted this examination/study. This report was electronically signed by ARRON HAYNES MD on08/23/2017 7:45 AM . Martha Coombs MD DIAGNOSTIC IMAGING O [facility] Care Teams Dock Operator Relationship Specialty Start Date End Date Deandre Melchor MD [address] [place] [id number] PCP - General 07/04/19
--- OUTSIDE RECORDS SUMMARY | 2024-07-19 15:57 | XMS_ITS | Clinical Summary ---
Author Organization [facility] Address [address] [facility] [place] [address] Care Team Providers Care Wool Fleece Grader Name Role Phone Deandre Melchor MD Primary Care Provider Source Comments [facility],non-owned Affiliates and Associated Physician Practices is amultiple site organization consisting of ambulatory clinics and hospital sitesin [place], [place], [place] and [place]. This disclosure is being madepursuant to the Care Everywhere program and may not contain all information available regarding this patient. Last updated 18.[facility] Allergies No known active allergies Medications * Be aware that medications may not be up to date on this document. Alwaysverify current medications with the patient. Medication Sig Dispensed Refills Start Date End Date Status vitamin D3 (CHOLECALCIFEROL) 25 MCG (1000 UNITS) tabletIndications: Supplement Take 5 tablets by mouth once daily Reasons: Supplement 75 tablet 1 09/24/2019 Active oxyCODONE-acetamin ophen (PERCOCET) 10-325 MG tablet Take 2 (two) tablets by mouth every 12 hours as needed Active Mchenry-3 Fatty Acids (FISH OIL) 1000 MG capsule Take 1 capsule by mouth once daily Active mirtazapine (REMERON) 45 MG tablet Take 1 (one) tablet by mouth at bedtime 90 tablet 4 06/18/2020 Active folic acid (FOLVITE) 1 MG tabletIndications: Folate Deficiency Anemia Take 1 (one) tablet by mouth once daily Reasons: Anemia From Inadequate Folic Acid 30 tablet 11 07/17/2020 Active Additional Information Patient not taking.Reported on 08/18/2023 busPIRone (BUSPAR) 15 MG tabletIndications: Major depressive disorder, recurrent episode with anxious distress (HCC) TAKE 1 (ONE) TABLET BY MOUTH 2 TIMES DAILY 60 tablet 12/29/2020 Active sertraline (Zoloft) 100 MG tablet Take 1 (one) tablet by mouth 11/25/2021 Active multivitamin daily tablet Take 1 (one) tablet by mouth daily with food Active traZODone (Desyrel) 50 MG tablet Take 1 (one) tablet by mouth 3 times daily Active oxyCODONE CR 12hr (OxyCONTIN) 10 MG tablet Take 1 (one) tablet by mouth every 12 hours Active acamprosate calcium EC (Campral) 333 MG tablet Take 1 (one) tablet by mouth 3 times daily Active cyclobenzaprine (Flexeril) 5 MG tablet Take 1 (one) tablet by mouth 3 times daily as needed Active risperiDONE (RisperDAL) 0.5 MG tablet Take 1 (one) tablet by mouth 2 times daily Active gabapentin (Neurontin) 600 MG tabletIndications: Seizures (HCC) Take 1 (one) tablet by mouth 2 times daily 60 tablet 11 04/20/2023 Active levETIRAcetam (Keppra) 500 MG tabletIndications: Seizures (HCC) Take 2 (two) tablets by mouth 2 times daily 360 tablet 3 04/20/2023 Active divalproex ER 24hr (Depakote ER) 250 MG tablet Take 3 tablets in the morning and 4 tablets at night 210 tablet 11 04/20/2023 Active B Complex Vitamins (B COMPLEX 1 PO) Active Active Problems Problem Noted Date Diagnosed Date Alcohol abuse 04/20/2023 04/20/2023 Bilateral sacroiliitis 04/20/2023 3 Calcium oxalate crystals present in urine 202204/20/2023 Dysphagia 04/20/2023 04/20/2023 Late effect of fracture of upper extremity 04/2004/20/2023 longterm (current) use of opiate analgesic 10/202204/20/2023 Lumbar [...] 06/06/2017 023 Sleep deprivation 06/06/2017 04/20/2023 Seizures Encounters Date Type Department Care Team Description 07/03/2024 Refill [facility] - Neurology [address] [place] [address], Formerly [facility] [place] [address] Lencho Torres, MANAGER MINING-GEAR REPAIR SUPERVISOR Refill Request from Last 3 Months Social History Tobacco [...] cm (6' 1.5 ) 04/20/2023 2:08 PM WOMEN'S GARMENT FITTER Body Mass Index 31.23 04/20/2023 2:08 PM WOMEN'S GARMENT FITTER Plan of Treatment Health Maintenance Due Date Last Done Comments MEDICARE AWV 12 MONTHS 1981 HIV SCREENING 1996 HEPATITIS C SCREENING 12/09/1999 DTAP/TDAP/TD VACCINES (1 - Tdap) 2000 HEPATITIS B VACCINE (1 of 3 - 19+ 3-dose series) 2000 PNEUMOCOCCAL VACCINE (1 of 2 - PCV) 2000 SCREENING FOR DIABETES 08/13/2023 , 09/20/2019, 09/19/2019, Additional history exists COVID-19 VACCINE ( season) 2024 04/19/2021, 09/18/2020, 08/28/2020 INFLUENZA VACCINE (#1) 2024 02/23/2014 DEPRESSION SCREENING 05/16/2024 LIPID TESTING 09/19/2024 09/20/2019 ZOSTER VACCINE (1 of 2) 12/14/2031 HIB VACCINE Aged Out No longer eligi ble based on patient's age to complete this topic HPV VACCINE Aged Out No longer eligi ble based on patient's age to complete this topic MENINGOCOCCAL (Group B) VACCINE Aged Out No longer eligible based on patient's age to complete this topic MENINGOCOCCAL VACCINE Aged Out No felicity chrissy eligible based on patient's age to complete this topic Procedures Procedure Name Priority Date/Time Associated Diagnosis Comments COMPREHENSIVE METABOLIC PANEL 08/12/2020 1:49 PM CDT LIPID PROFILE AM Draw 09/20/2019 3:09 AM CDT from Last 3 Months or Most Recently Relevant to Health Maintenance Results * COMPREHENSIVE METABOLIC PANEL (08/12/2020 1:49 PM CDT) Pathologist [facility] Glucose 90 65 - [...] 46 U/L [facility] Comment: Test Performed at: [facility] [address] [place] [address] KARLOS NAVA DO,MPH 08/12/2020 1:4 9 PM CDT 08/12/2020 1:49 PM CDT Lois Perez MD LAB - CHEMISTRY [facility] [address] [place] [address] * (ABNORMAL) LIPID PROFILE (09/20/2019 3:09 AM CDT) [facility] Cholesterol 167 <200 mg/dL 09/20/2019 3:36 AM CDT [facility] Triglycerides 179(H) <150 mg/dL 09/20/2019 3:36 AM CDT [facility] HDL Cholesterol 40(L) >40 mg/dL 0 3:36 AM CDT [facility] LDL Calculated 91 <130 mg/dL 09/20/2019 3:36 AM CDT [facility] VLDL Calculated 36(H) <=30 mg/dL 0 3:36 AM CDT [facility] Chol HDL Ratio 4.2 <4.5 09/20/2019 3:36 AM CDT [facility] LDL/HDL Ratio 2.3 <5.0 09/20/2019 3:36 AM CDT [facility] Blood BLOOD SPECIMEN / Unknown Venipuncture / Unknown 09/20/2019 3:09 AM CDT 09/20/2019 3:15 AM CDT Tash Cabral MANAGER MINING-GEAR REPAIR SUPERVISOR LAB - BIAS CUTTER RY ORDERABLES [facility] [address] [place] [address] from Last 3 Months or Most Recently Relevant to Health Maintenance Advance Directives * Full Code (Latest Code Status on File) Date Activated Date Inactivated Comments 09/20/2019 1:45 AM 09/24/2019 8:06 PM Care Teams Wool Fleece Grader Relationship Specialty Start Date End Date Deandre Melchor MD [address] [place] [phone] PCP - General 07/04/19
--- OUTSIDE RECORDS SUMMARY | 2024-07-19 15:57 | XMS_ITS | Clinical Summary ---
Author Organization [facility] Address [address] [place] [address] Care Team Providers Care Catering Staff Member Name Role Phone Unavailable Primary Care Provider Unavailabl e Social History Tobacco Use Types Packs/Day Years Used Date Smoking Tobacco: Never Assessed Sex and Gender Information Value Date Recorded Sex Assigned at Not on file Legal Sex Male 6:44 PM CDT Gender Identity Not on file Sexual Orientation Not on file Plan of Treatment Health Maintenance Due Date Last Done Comments Annual Physical 1984 Hepatitis C 12/14/1999 DTaP, Tdap and Td Vaccines ( 1 - Tdap) 2000 Hepatitis B Vaccines (1 of 3 - 19+ 3-dose series) 2000 COVID-19 Vaccine (2023-2 5 season) 2024 Influenza Adult (#1) 2024 HPV Vaccines Aged Out No longer eligi ble based on patient's age to complete this topic Meningococcal B Vaccine Aged Out No l onger eligible based on patient's age to complete this topic Meningococcal Vaccine Aged Out No felicity chrissy eligible based on patient's age to complete this topic Pneumococcal Vaccine: Pediat rics (0 to 5 Years) and At-Risk Patients (6 to 64 Years) Aged Out No longer eligible b ased on patient's age to complete this topic RSV Immunizations Under 20 Months Aged Out No longer eligible based on patient's age to complete this topic Insurance MEDICARE
--- OUTSIDE RECORDS SUMMARY | 2024-07-19 15:57 | XMS_ITS | Referral Summary ---
Author Organization [facility] Address [address] [place] [address] Care Team Providers Care Wig Sales Consultant Name Role Phone Deandre Melchor MD Primary Care Provider Source Comments [facility],non-owned Affiliates and Associated Physician Practices is amultiple site organization consisting of ambulatory clinics and hospital sitesin [place], [place], [place] and [place]. This disclosure is being madepursuant to the Care Everywhere program and may not contain all information available regarding this patient. Last updated 18.[facility] Encounters Date Type Department Care Team Description 07/03/2024 Refill [facility] - Neurology [address] [place] [address], [place] [phone] Lencho Torres, ANGEL-ANJU Refill Request from Last 3 Months Allergies No known active allergies Medications * [...] mouth every 12 hours as needed Active Humbird-3 Fatty Acids (FISH OIL) 1000 MG capsule [...] Alcohol abuse 04/20/2023 04/20/2023 Bilateral sacroiliitis 04/20/2023 Calcium oxalate crystals present in urine 202204/20/2023 Dysphagia 04/20/2023 04/20/2023 Late effect of fracture of upper extremity 04/2004/20/2023 jail (current) use of opiate analgesic 10/202204/20/2023 Lumbar [...] cm (6' 1.5 ) 04/20/2023 2:08 PM FERRYBOAT CAPTAIN Body Mass Index 31.23 04/20/2023 2:08 PM FERRYBOAT CAPTAIN Functional Status Functional Status Response Date of [...] person have difficulty concentrating/remembering/making decisions? No 09/20/2019 Plan of Treatment Not on file Procedures Procedure Name Priority Date/Time Associated Diagnosis Comments COMPREHENSIVE METABOLIC PANEL 08/12/2020 1:49 PM CDT LIPID PROFILE AM Draw 09/20/2019 3:09 AM CDT from Last 3 Months or Most Recently Relevant to Health Maintenance Results * COMPREHENSIVE METABOLIC PANEL (08/12/2020 1:49 PM CDT) [facility] Glucose 90 65 - 99 mg/dL [facility] [...] 46 U/L [facility] Comment: Test Performed at: [facility] [address] [place] [address] KARLOS NAVA DO,MPH 08/12/2020 1:49 PM CDT 08/12/2020 1:49 PM CDT Lois Perez MD LAB - CHEMISTRY CHIDI MARTINS [facility] Organization Address City/State/[facility] Co de Phone Number [facility] [address] [place] [address] * (ABNORMAL) LIPID PROFILE (09/20/2019 3:09 AM CDT) Cholesterol 167 <200 mg/dL 09/20/2019 3:36 AM CDT [facility] Triglycerides 179(H) <150 mg/dL 09/20/2019 3:36 AM CDT [facility] HDL Cholesterol 40(L) >40 mg/dL 0 3:36 AM CDT [facility] LDL Calculated 91 <130 mg/dL 09/20/2019 3:36 AM CDT [facility] VLDL Calculated 36(H) <=30 mg/dL 0 3:36 AM CDT [facility] Chol HDL Ratio 4.2 <4.5 09/20/2019 3:36 AM CDT [facility] LDL/HDL Ratio 2.3 <5.0 09/20/2019 3:36 AM CDT [facility] Blood BLOOD SPECIMEN / Unknown Venipuncture / Unknown 09/20/2019 3:09 AM CDT 09/20/2019 3:15 AM CDT Tash Cabral SPACE SCIENCES DIRECTOR-MARINE PAINTER LAB - PEDIATRICS TEACHER RY ORDERABLES [facility] [address] [place] [address] from Last 3 Months or Most Recently Relevant to Health Maintenance Advance Directives * Full Code (Latest Code Status on File) Date Activated Date Inactivated Comments 09/20/2019 1:45 AM 09/24/2019 8:06 PM Care Teams Wig Sales Consultant Relationship Specialty Start Date End Date Deandre Melchor MD [address] [place] [address] PCP - General 07/04/19
--- OUTSIDE RECORDS SUMMARY | 2024-07-19 15:57 | XMS_ITS | Encounter Summary ---
Author Organization [facility] Address [address] [place] [address] Care Team Providers Care Certified Executive Chef Name Role Phone Unavailable Primary Care Provider Unavailabl e Encounter Details Date Type Department Care Team (Late st Contact Info) Description 07/30/2017 Abstract [facility] CONVERSION [address] [place] [address] , Generic Conversion, Social History Tobacco Use Types Packs/Day Years Used Date Smoking Tobacco: Never Assessed Sex and Gender Information Value Date Recorded Sex Assigned at Not on file Legal Sex Male 6:44 PM CDT Gender Identity Not on file Sexual Orientation Not on file documented as of this encounter Plan of Treatment Not on file documented as of this encounter Visit Diagnoses Not on filedocumented in this encounter
--- OUTSIDE RECORDS SUMMARY | 2024-07-19 15:57 | XMS_ITS | Continuity of Care Document ---
Author Organization [facility] Address [address] [place] [address] [place] [address] Phone Care Team Providers Care Limnology Teacher Name Role Phone Sathya Beth MD Unavailable Unavailable Allergies, Adverse Reactions, Alerts Substance Reaction Status Criticality No Known Allergies Active No Inform ation Medications Medication Instructions Dosage Effective Dates (start - stop) Status Comments trazodone 50 mg tablet take 0.5 tablet b y oral route every bedtime after meals 25 MG - Active Keppra 1,000 mg tablet take 1 tablet by oral route every 12 hours 1000 MG - Active methylphenidate 5 mg tablet take 0.5 tablet by oral route 2 times every day 2.5 MG - Active Percocet 5 mg-325 mg tablet take 1 tablet by oral route 3 times every day as needed 1 tablet - Active PRN for headache, avoid driving or operaet machines Procedures Procedure Date PREV VISIT, NEW, AGE 18-39 Advance Directives Directive Yes / No Effective Date File Name No Information Encounters Encounter Description Practice Location Reason(s) For Visit Diagnoses Date Provider Providers Copied on Encounter [facility], [address] [place], [id number], [place] tel:[phone] [facility] No Information Kirit Mcdonnell. [address], [address] [place], [place], [id number], [place]. tel:[phone] Referring Provider: Sathya Beth, [address] [facility] [address], [place], [place], [id number]. tel:[phone] PREV VISIT, NEW, AGE 18-39 [facility], [address] [place], [place], [id number], [place] tel:[phone] [facility] PHysical (chief complaint) Encntr for general adult medical exam w/o abnormal findings Kirit Mcdonnell. [address], [place], [place], [id number], [place]. tel:[phone] Referring Provider: Sathya Beth, [address], [place], [place], [id number]. tel:[phone] Family History Family Member Type Diagnosis Age At Onset Father Problem (finding) Brother Problem (finding) Alive and well Mother Problem (finding) Diabetes mellitus type 2 Father Problem (finding) of lung [place] Payers Payer name Insurance type Covered libertarian ID Authoriza tion(s) No Information Social History [...]
--- OUTSIDE RECORDS SUMMARY | 2024-07-19 15:57 | XMS_ITS | Encounter Summary ---
Author Organization [facility] Address [address] [place] [address] Care Team Providers Care Lunch Truck Operator Name Role Phone Jorge Fletcher MD Primary Care Provider Unavailable Encounter Details Date Type Department Care Team (Late st Contact Info) Description 03/19/2017 Abstract [place] [address] Jorge Fletcher MD Social History Tobacco Use Types Packs/Day Years [...] Diagnoses Not on filedocumented in this encounter Care Teams Lunch Truck Operator Relationship Specialty Start Date End Date Jorge Fletcher MD PCP - General 05/18/14 documented as of this encounter
[2024-07-19 16:11] LABS: Alanine Aminotransferase 122 U/L (6-50); Albumin Level 5.1 g/dL (3.5-5.1); Alkaline Phosphatase 82 U/L (38-126); Anion Gap 12 mmol/L (4-12); Aspartate Amino Transferase 73 U/L (17-59); Bilirubin,Total 0.4 mg/dL (0.2-1.3); Blood Urea Nitrogen 7 mg/dL (9-20); Calcium 9.6 mg/dL (8.4-10.2); Carbon Dioxide 25 mmol/L (22-30); Chloride 103 mmol/L (98-107); Cholesterol 174 mg/dL (0-200); Estimated Glomerular Filt Rate > 60; Glucose 89 mg/dL (65-110); HDL Direct 62 mg/dL; Potassium 4.2 mmol/L (3.4-5.0); Sodium 140 mmol/L (137-145); Triglycerides 279 mg/dL (<150); Uric Acid 6.4 mg/dL (3.5-8.5)
[2024-07-19 16:22] LABS: LDL Cholesterol Direct 70 mg/dL
[2024-07-19 16:54] LABS: Valproic Acid 16.7 ug/mL (50-120)
[2024-07-19 17:24] LABS: Hepatitis B Surface Antigen Negative (Negative)
[2024-07-19 17:30] LABS: HAV RESULT Negative (Negative); Hepatitis B Core IgM Result Negative (Negative)
[2024-07-19 17:41] LABS: Hepatitis C Virus Antibody Negative (Negative)
[2024-07-20 08:23] LABS: GGT 219 U/L (3-95)
[2024-07-21 07:03] LABS: Levetiracetam Keppra 2.6 mcg/mL (6.0-46.0)
== END 2024-07-19 14:36 | disposition home or self-care (01) ==
PROVIDERS: PCP Internal Medicine; Referring Provider Internal Medicine
DX: G40.209 Localization-related (focal) (partial) symptomatic epilepsy and epileptic syndromes with complex partial seizures, not intractable, without status epilepticus (principal); E79.0 Hyperuricemia without signs of inflammatory arthritis and tophaceous disease; E78.2 Mixed hyperlipidemia; R74.01 Elevation of levels of liver transaminase levels
CPT/HCPCS: 36415; 80053; 80061; 80074; 80164; 80177; 82977; 84550

== ENCOUNTER 2025-01-22 15:07 | Outpatient (CLI) | payer MEDICARE, MEDICAID, SELFPAY ==
--- OUTSIDE RECORDS SUMMARY | 2016-09-14 19:00 | XMS_ITS | Continuity of Care Document ---
Author Organization [facility] Address [address] [place] [address] Phone Care Team Providers Care X Ray Service Engineer Name Role Phone Sae Palm MD Unavailable Unavailable Advance Directives Directive Yes / No Effective Date File Name No Information Encounters Encounter Description Practice Location Reason(s) For Visit Diagnoses Date Provider Providers Copied on Encounter [facility], [address], [place], [place], [id number], tel:[phone] [facility] No Information Néstor Quevedo. [address] [place] [address], [address], [place], [place], [id number], . tel:[phone] Referring Provider: Sae Palm, [address] [place] [address], [address]. tel:[phone] Family History Family Member Type Diagnosis Age At Onset No Information Payers Payer name Insurance type Covered republican ID Authoriza tiherminio(s) [facility] [id number] Social History Type Description Quantity Date Captured Comments Sex Male Smoking Status No Information Chief Complaint And Reason For Visit No Information Reason For Referral Reason For Referral No Information History Of Present Illness Encounter Date Complaint History Of Prese nt Illness No Information Functional Status Date Functional Assessmen t No Information Instructions Date Instruction Additional Infor mation No Information Assessments Type Assessment Date No Information Patient Care Teams Name Effective Dates (start - stop) Status Members No Information
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
[2025-01-22 15:46] LABS: Alanine Aminotransferase 82 U/L (6-50); Albumin Level 5.4 g/dL (3.5-5.1); Alkaline Phosphatase 102 U/L (38-126); Anion Gap 21 mmol/L (4-12); Aspartate Amino Transferase 92 U/L (17-59); Bilirubin,Total 0.8 mg/dL (0.2-1.3); Blood Urea Nitrogen 10 mg/dL (9-20); Calcium 9.4 mg/dL (8.4-10.2); Carbon Dioxide 18 mmol/L (22-30); Chloride 103 mmol/L (98-107); Estimated Glomerular Filt Rate > 60; Glucose 84 mg/dL (65-110); Potassium 4.3 mmol/L (3.4-5.0); Sodium 142 mmol/L (137-145); Total Protein 9.4 g/dL (6.3-8.2)
--- OUTSIDE RECORDS SUMMARY | 2025-01-22 16:31 | XMS_ITS | Clinical Summary ---
Author Organization [facility] Address [address] [place] [address] Care Team Providers Care Help Desk Engineer Name Role Phone Deandre Melchor MD Primary Care Provider Deandre Melchor MD Unavailable [phone] Allergies No known active allergies Medications oxyCODONE-acetamin [...] C no.3 (B Complex Plus Vitamin C) 70-03-44-5-300 mg capsule 03/18/20 17 Active naproxen (NAPROSYN) [...] mouth 2 (two) times a day Active qiuuxpqw-fxo-ljebe us gluconate (Centrum) 0.6 mg iron/mL liquid [...] 180 tablet 3 07/18/19 25 026 Active Active Problems Problem Noted Date Diagnosed Date 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/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 Myalgia 08/11/2021 Disc degeneration, lumbar 08/11/2021 Traumatic brain injury 08/11/2021 History of traumatic brain injury 08/11/2021 Encounters Date Type Department Care Team Description 01/22/2025 Telephone [facility] Neurology [facility] [address] [place] [address] Sarmad Correa Si, MD Labs Only (LABS NEEDS COMPLETING ) from Last 3 Months Social History Tobacco [...] Comments Blood Pressure 132/92 07/17/2024 2:53 PM CLIENT SERVICES COORDINATOR Pulse 98 07/17/2024 2:53 PM CLIENT SERVICES COORDINATOR Temperature - - Respiratory Rate - - Oxygen Saturation 96% 08/11/2021 1:53 PM CDT Inhaled Oxygen Concentration - - Weight 104.3 kg (230 lb) 07/17/2024 2:53 PM CLIENT SERVICES COORDINATOR Height 186.7 cm (6' 1.5) 07/17/2024 2:53 PM CLIENT SERVICES COORDINATOR Body Mass Index 29.93 07/17/2024 2:53 PM CLIENT SERVICES COORDINATOR Plan of Treatment Health Maintenance Due Date Last Done Comments Depression Screening 1981 Varicella Vaccines (1 of 2 - 13+ 2-dose series) 1994 Hepatitis B Screening 12/14/1999 Regular Well Visit/Exam 18-64 12/14/1999 Pneumococcal vaccine <65 (1 of 2 - PCV) 2000 HPV Vaccines (1 - 3-dose SCDM series) 2008 Covid-19 Vaccine ( - 2025-26 season) 2025 04/19/2021, 09/18/2020, 08/28/2020 Influenza Vaccine (#1) 2025 02/23/2014 DTaP/Tdap/Td Vaccine (3 - Td or Tdap) 07/09/2029, 12/04/2018 Hepatitis C Screening Completed 08/20/2016 Procedures Procedure Name Priority Date/Time Associated Diagnosis [...] 5:28 AM CDT 08/20/2016 11:54 AM CDT Zenobia Aldana NP LAB MICROBIOLOGY - GENERAL ORDERABLES Final Result BRANDON HERNANDEZ (MARI) [address] [facility] [place] [address] from Last 3 Months or Most Recently Relevant to Health Maintenance Insurance MEDICARE MEDICARE [facility] MEDICARE Advance Directives For more information, please contact: [phone] Documents on File Type Date Recorded Patient Van Owner Operator Expl anation ADVANCE DIRECTIVE 12/12/2019 12:00 AM ROXANNE R OF ASSOCIATE PUBLISHER FINANCIAL/MEDICAL Care Teams Help Desk Engineer Relationship Specialty Start Date End Date Deandre Melchor MD [address] [facility] [address] [place], [place] [id number] PCP - General 11/29/19 Deandre Melchor MD [address] [facility] [place], [place] [phone] Internal Medicine 11/29/19
--- OUTSIDE RECORDS SUMMARY | 2025-01-22 16:31 | XMS_ITS | Encounter Summary ---
Author Organization [facility] Address [address] [place] [address] Care Team Providers Care Scale Tank Operator Name Role Phone Deandre Melchor MD Primary Care Provider [phone] Deandre Melchor MD Unavailable [phone] Reason for Visit * Reason Onset Date Comments Labs Only 01/22/2025 LABS NEEDS COMPL ETING Encounter Details Date Type Department Care Team (Late st Contact Info) Description 01/22/2025 Telephone [facility] Neurology [address] [facility] [address] [place] [phone] Sarmad Correa Si, MD [address] [place] [address] Labs Only (LABS NEEDS COMPLETING ) Social History Tobacco Use Types Packs/Day Years Used Date Smoking Tobacco: Former Sex and Gender Information Value Date Recorded Sex Assigned at Not on file Legal Sex Male 4:30 AM CDT Gender Identity Not on file Sexual Orientation Not on file documented as of this encounter Miscellaneous Notes * Telephone Encounter - Courtney Jason MA - 01/22/2025 8:51 AM CDT Left a voice message for patient to complete his labs, before his appointment. documented in this encounter Plan of Treatment Not on file documented as of this encounter Visit Diagnoses Not on filedocumented in this encounter Care Teams Scale Tank Operator Relationship Specialty Start Date End Date Deandre Melchor MD [address] [address] [facility] [address] [place] [address] [facility] - General 11/29/19 Deandre Melchor MD [address] [facility] [address] [place], [place] [id number] Internal Medicine 11/29/19 documented as of this encounter
--- OUTSIDE RECORDS SUMMARY | 2025-01-22 16:31 | XMS_ITS | Encounter Summary ---
Author Organization [facility] Address [address] [place] [address] Care Team Providers Care Program Facilitator Name Role Phone Deandre Melchor MD Primary Care Provider Reason for Visit * Reason Onset Date Comments MEDICATION REFILL 02/21/2023 Encounter Details Date Type Department Care Team (Late st Contact Info) Description 02/21/2023 Refill [facility] - Neurology [address] [facility], [place] [phone] Lencho Torres, DEPARTMENT SECRETARY-SURGICAL CODER [address] [place] [address] MEDICATION REFILL Social History Tobacco Use Types Packs/Day Years Used Date Smoking Tobacco: Every Day Cigarettes Smokeless Tobacco: Never Alcohol Use Standard Drinks/Week Comments Not Currently 0 (1 standard drink = 0.6 oz pur e alcohol) Sex and Gender Information Value Date Recorded Sex Assigned at Not on file Legal Sex Male 5:34 AM DOCK OPERATOR Gender Identity Not on file Sexual Orientation Not on file documented as of this encounter Functional Status * Is person deaf or have serious hearing difficulty? Answer Date of Assessment Author No 09/20/2019 4:49 AM Roman Waters RN * Is person blind or have serious difficulty seeing? Answer Date of Assessment Author No 09/20/2019 4:49 AM Roman Waters RN * Does person have serious difficulty walking/climbing stairs? Answer Date of Assessment Author No 09/20/2019 4:49 AM Roman Waters RN * Does person have difficulty dressing/bathing? Answer Date of Assessment Author No 09/20/2019 4:49 AM Roman Waters RN * Does person have difficulty doing errands alone? Answer Date of Assessment Author No 09/20/2019 4:49 AM Roman Waters RN documented as of this encounter Mental Status * Does person have difficulty concentrating/remembering/making decisions? Answer Entry Date Author No 09/20/2019 4:49 AM Roman Waters RN documented in this encounter Plan of Treatment Not on file documented as of this encounter Visit Diagnoses Diagnosis Seizures (HCC) Other convulsions documented in this encounter Care Teams Program Facilitator Relationship Specialty Start Date End Date Deandre Melchor MD [address] [place] [address] PCP - General 07/04/19 documented as of this encounter
--- OUTSIDE RECORDS SUMMARY | 2025-01-22 16:31 | XMS_ITS | Encounter Summary ---
Author Organization [facility] Address [address] [facility] [place] [address] Care Team Providers Care Camera Repairer Name Role Phone Deandre Melchor MD Primary Care Provider Reason for Visit * Reason Onset Date Comments MEDICATION REFILL 09/22/2022 Encounter Details Date Type Department Care Team (Late st Contact Info) Description 09/22/2022 Refill [facility] [address] [facility], [facility] [place] [phone] Lencho Torres, TAPER OPERATOR-WAREHOUSE RECEIVING CLERK [address] [place] [address] MEDICATION REFILL Social History Tobacco Use Types Packs/Day Years Used Date Smoking Tobacco: Every Day Cigarettes Smokeless Tobacco: Never Alcohol Use Standard Drinks/Week Comments Not Currently 0 (1 standard drink = 0.6 oz pur e alcohol) Sex and Gender Information Value Date Recorded Sex Assigned at Not on file Legal Sex Male 5:34 AM DIRECTOR OF PROVIDER RELATIONS Gender Identity Not on file Sexual Orientation Not on file documented as of this encounter Functional Status * Is person deaf or have serious hearing difficulty? Answer Date of Assessment Author No 09/20/2019 4:49 AM NICOLÁST Roman Mc RN * Is person blind or have [...] Roman Waters RN documented in this encounter Miscellaneous Notes * Telephone Encounter [...] convulsions documented in this encounter Care Teams Camera Repairer Relationship Specialty Start Date End Date Deandre Melchor MD [facility] [place] [address] [place] [address] PCP - General 07/04/19 documented as of this encounter
--- OUTSIDE RECORDS SUMMARY | 2025-01-22 16:31 | XMS_ITS | Patient Health Record ---
Author Organization [facility] Address [address] [place] [address] Care Team Providers Care Sec Accountant Name Role Phone Georgette Carter Primary Care Provider Reason For Referral No Information Medications Medication SIG (Take, Route, Frequency, Duration) Notes Start Date End Date Status Gabapentin 300 MG 1 capsule Orally thr ee times a day Active Dicyclomine HCl 20 MG 1 tablet Orally on ce a day Active Campral 333 MG 2 tablets Orally Thr ee times a day; Duration: 30 day(s) 02/27/2019 Active Sertraline HCl 100 MG 1.5 tablets Orally Once a day Active Centrum - as directed Orally A ctive Vitamin D-3 1000 UNIT 1 capsule Orally O nce a day; Duration: 30 day(s) Active [place] Oil - as directed Orally Active Phosphatidylserine [...] 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 Stress is when someone feels tense, nervous, anxious, or can\t sleep at night because their mind is troubled Quite a bit In the past year have you sp ent more than 2 nights in a row in a senior care, [facility]cfp, nursing home center, or juvenile correctional facility? No Are [...] Problem Status W/U Status Risk Notes Problem Tobacco dependence (11240740) Tobacco dependence (F17.200) Active confirmed Problem Alcohol use disorder (9536124514) Alcohol use disorder (F10.99) Active confirmed Plan Of Treatment No Information Insurance Providers Payer Name Payer Address Payer Phone Subscriber Number Group Number Insured Name Patient Relationship to Insured Coverage Start Date Coverage End Date [employer] [address] [place] [address] [id number] Barrera Ely Self - patient is the insured 9 [employer] [address] [place] [address] [id number] Barrera Ely Self - patient is the insured 9 [facility] [facility] [address] [place] [address] [id number] [place] Self - patient is the insured 9 Medical (General) History Medical History History ICD Code Alcohol use disorder TBI Seizure disorder Surgical History Surgery Date(Month/Year) brain surgery 2017 replace skull flap 2016 Hospitalization History Reason Date(Month/Year) fell down flight of steps Brain rehab detox
--- OUTSIDE RECORDS SUMMARY | 2025-01-22 16:32 | XMS_ITS | Clinical Summary ---
Author Organization [facility] Address [address] [place] [address] Care Team Providers Care Papier Mache Molder Name Role Phone Unavailable Primary Care Provider [...] of 3 - 19+ 3-dose series) 2000 HPV Vaccines (1 - 3-dose SCD M series) 2008 COVID-19 Vaccine ( - 2023-2 5 season) 2025 Meningococcal B Vaccine Aged Out No l onger eligible based on patient's age to complete this topic Meningococcal Vaccine Aged Out No felicity chrissy eligible based on patient's age to complete this topic Pneumococcal Vaccine: Pediat rics (0 to 5 Years) and At-Risk Patients (6 to 49 Years) Aged Out No longer eligible b ased on patient's age to complete this topic RSV Immunizations Under 20 Months Aged Out No longer eligible based on patient's age to complete this topic Insurance MEDICARE
--- OUTSIDE RECORDS SUMMARY | 2025-01-22 16:32 | XMS_ITS | Encounter Summary ---
Author Organization [facility] Address [address] [place] [address] Care Team Providers Care Order Dispatcher Chief Name Role Phone Unavailable Primary Care Provider Unavailabl e Encounter Details Date Type Department Care Team (Late st Contact Info) Description 07/30/2017 Abstract [facility] [address] [place] [address] , Generic Conversion, Social History Tobacco [...]
--- OUTSIDE RECORDS SUMMARY | 2025-01-22 16:32 | XMS_ITS | Clinical Summary ---
Author Organization [facility] Address [address] [facility] [place] [address] Care Team Providers Care Cruise Consultant Name Role Phone Deandre Melchor MD Primary Care Provider Source Comments [facility],non-owned Affiliates and Associated Physician Practices is amultiple site organization consisting of ambulatory clinics and hospital sitesin [place], [place], [place] and [place]. This disclosure is being madepursuant to the Care Everywhere program and may not contain all information available regarding this patient. Last updated 18.[facility] Allergies No known active allergies Medications * This document contains information received from the source organization and may not represent a complete record from that organization. * Be aware that medications may not be up to date on this document. Alwaysverify current medications with the patient. vitamin D3 (CHOLECALCIFERO L) 25 MCG (1000 UNITS) tabletIndicatio ns:Supplement Take 5 tablets by mouth once daily Reasons: Supplement 75 tablet 1 0 Active oxyCODONE-aceta minophen (PERCOCET) 10-325 MG tablet Take 2 (two) tablets by mouth every 12 hours as needed Active [place]-3 Fatty Acids (FISH OIL) 1000 MG capsule Take 1 capsule by mouth once daily Active mirtazapine (REMERON) 45 MG tablet Take 1 (one) tablet by mouth at bedtime 90 tablet 4 1 Active folic acid (FOLVITE) 1 MG tabletIndicatio ns:Folate Deficiency Anemia Take 1 (one) tablet by mouth once daily Reasons: Anemia From Inadequate Folic Acid 30 tablet 11 1 Active Additional Information Patient not taking.Reported on 08/18/2023 busPIRone (BUSPAR) 15 MG tabletIndicatio ns:Major depressive disorder, recurrent episode with anxious distress TAKE 1 (ONE) TABLET BY MOUTH 2 TIMES DAILY 60 tablet 1 Active sertraline (Zoloft) 100 MG tablet Take 1 (one) tablet by mouth 2 Active multivitamin daily tablet Take 1 (one) [...] times daily Active gabapentin (Neurontin) 600 MG tabletIndicatio ns:Seizures (HCC) Take 1 (one) tablet by mouth 2 times daily 60 tablet 11 3 Active levETIRAcetam (Keppra) 500 MG tabletIndicatio ns:Seizures (HCC) Take 2 (two) tablets by mouth 2 times daily 360 tablet 3 3 Active divalproex ER 24hr (Depakote ER) 250 MG tablet Take 3 tablets in the morning and 4 tablets at night 210 tablet 11 3 Active B Complex Vitamins (B COMPLEX 1 PO) Active Active Problems Problem Noted Date Diagnosed Date Alcohol abuse 04/20/2023 04/20/2023 Bilateral sacroiliitis 04/20/2023 3 Calcium oxalate crystals present in urine 202204/20/2023 Dysphagia 04/20/2023 04/20/2023 Late effect of fracture of upper extremity 04/2004/20/2023 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 10/202204/20/2023 Lumbar [...] Encounters Date Type Department Care Team Description 11/29/2024 Refill [facility] - Neurology [address] [place] [address], [facility] [place] [phone] Elena Odonnell APRN-ANJU Refill Request from Last 3 Months Social [...] on file Legal Sex Male 5:34 AM PHILANTHROPY OFFICER Gender Identity Not on file Sexual Orientation [...] 1:31 PM CDT Height 186.7 cm (6' 1.5) 04/20/2023 2:08 PM PHILANTHROPY OFFICER Body Mass Index 31.23 04/20/2023 2:08 PM PHILANTHROPY OFFICER Plan of Treatment Health Maintenance Due Date Last Done Comments MEDICARE AWV 12 MONTHS 1981 HIV SCREENING 1996 HEPATITIS C SCREENING 12/09/1999 DTAP/TDAP/TD VACCINES (1 - Tdap) 2000 HEPATITIS B VACCINE (1 of 3 - 19+ 3-dose series) 2000 PNEUMOCOCCAL VACCINE (1 of 2 - PCV) 2000 HPV VACCINE (1 - 3-dose SCDM series) 2008 SCREENING FOR DIABETES 08/13/2023 , 09/20/2019, 09/19/2019, Additional history exists DEPRESSION SCREENING 05/16/2024 LIPID TESTING 09/19/2024 09/20/2019 COVID-19 VACCINE ( season) 2025 04/19/2021, 09/18/2020, 08/28/2020 INFLUENZA VACCINE (#1) 2025 02/23/2014 ZOSTER VACCINE (1 of 2) 12/14/2031 HIB VACCINE Aged Out No longer eligi ble based on patient's age to complete this topic MENINGOCOCCAL (Group B) VACCINE SHARED DECISION-MAKING Aged Out No longer eligible based on patient's age to complete this topic MENINGOCOCCAL GROUPS A/C/Y/W VACCINE Aged Out No longer eligible based on patient's age to complete this topic Procedures Procedure Name Priority Date/Time Associated Diagnosis Comments COMPREHENSIVE METABOLIC PANEL 08/12/2020 1:49 PM CDT LIPID PROFILE AM Draw 09/20/2019 3:09 AM CDT from Last 3 Months or Most Recently Relevant to Health Maintenance Results * COMPREHENSIVE METABOLIC PANEL (08/12/2020 1:49 PM CDT) [facility] Glucose 90 65 - 99 mg/dL [facility] [...] 46 U/L [facility] Comment: Test Performed at: [facility] [address] [place] [address] KARLOS NAVA DO,MPH 08/12/2020 1:49 PM CDT 08/12/2020 1:49 PM CDT us Lois Perez MD LAB - CHEMISTRY ORDERABLES Fin al Result [facility] [address] [place] [address] * (ABNORMAL) LIPID PROFILE (09/20/2019 3:09 AM CDT) Cholesterol 167 <200 mg/dL 09/20/2019 3:36 AM CDT [facility] Triglycerides 179(H) <150 mg/dL 09/20/2019 3:36 AM CDT [facility] HDL Cholesterol 40(L) >40 mg/dL 0 3:36 AM CDT [facility] LDL Calculated 91 <130 mg/dL 09/20/2019 3:36 AM CDT [facility] VLDL Calculated 36(H) <=30 mg/dL 0 3:36 AM CDT [facility] Chol HDL Ratio 4.2 <4.5 09/20/2019 3:36 AM CDT [facility] LDL/HDL Ratio 2.3 <5.0 09/20/2019 3:36 AM CDT [facility] Blood BLOOD SPECIMEN / Unknown Venipuncture / Unknown 09/20/2019 3:09 AM CDT 09/20/2019 3:15 AM CDT Tash Cabral FRUIT ROOM HAND-STAMP PRESSER LAB - CHEMISTRY ORDER MACHO Final Result [facility] [address] [place] [address] from Last 3 Months or Most Recently Relevant to Health Maintenance Insurance MEDIC[place] Advance Directives * Full Code (Latest Code Status on File) Date Activated Date Inactivated Comments 09/20/2019 1:45 AM 09/24/2019 8:06 PM Care Teams Cruise Consultant Relationship Specialty Start Date End Date Deandre Melchor MD [address] [place] [phone] PCP - General 07/04/19
--- OUTSIDE RECORDS SUMMARY | 2025-01-22 16:32 | XMS_ITS | Encounter Summary ---
Author Organization [facility] Address [address] [place] [address] Care Team Providers Care Can Cleaner Name Role Phone Jorge Fletcher MD Primary Care Provider Unavailable Encounter Details Date Type Department Care Team (Late st Contact Info) Description 03/19/2017 Abstract [place] [address] Jorge Fletcher MD Social History Tobacco Use [...] on filedocumented in this encounter Care Teams Can Cleaner Relationship Specialty Start Date End Date Jorge Fletcher MD PCP - General 05/18/14 documented as of this encounter
== END 2025-01-22 15:08 | disposition home or self-care (01) ==
PROVIDERS: PCP Internal Medicine
DX: G40.209 Localization-related (focal) (partial) symptomatic epilepsy and epileptic syndromes with complex partial seizures, not intractable, without status epilepticus (principal)
CPT/HCPCS: 36415; 80053; 80165; 80177

== ENCOUNTER 2025-05-14 17:28 | Outpatient (CLI) | payer MEDICARE, MEDICAID, SELFPAY | END 2025-05-14 17:29 | disposition home or self-care (01) | PROVIDERS: PCP Internal Medicine | DX: G40.209 Localization-related (focal) (partial) symptomatic epilepsy and epileptic syndromes with complex partial seizures, not intractable, without status epilepticus (principal) | CPT/HCPCS: 80177 ==